=== PATIENT | female | born 1995 | race Caucasian/White ===

== ENCOUNTER → 2020-07-04 15:22 | Outpatient (CLI) | payer OTHER, SELFPAY ==
[2020-07-04 14:44] VITALS: BMI 21.2
== END ==
PROVIDERS: PCP Family Medicine; Referring Provider Internal Medicine Cardiovascular Disease; Visit Provider Internal Medicine Cardiovascular Disease
DX: R00.0 Tachycardia, unspecified (principal)
CPT/HCPCS: 93225; 93226

== ENCOUNTER → 2020-07-30 08:46 | Outpatient (CLI) | payer OTHER, SELFPAY ==
[2020-07-04 14:44] VITALS: BMI 21.2
--- NOTE | 2020-07-30 08:48 | ECHOD_ITS ---
Reason For Study: Arrhythmia Procedure This was a 2D Doppler, Color Flow transthoracic echocardiogram. Exam performed in department. Left Ventricle Normal LV size. Left ventricular systolic function is normal. The estimated ejection fraction is 60 %. Normal diastology for age. No regional wall motion abnormalities noted. Right Ventricle Normal RV size. Normal systolic function. Atria Normal left atrium. Normal right atrium. Mitral Valve Normal mitral valve. Tricuspid Valve Normal tricuspid valve. Aortic Valve Normal aortic valve. Trisinus/trileaflet aortic valve. Pulmonic Valve Normal pulmonic valve. Great Vessels Normal aortic root. The pulmonary artery is normal size. Normal inferior vena cava. Pericardium/Pleural No pericardial effusion. MMode/2D Measurements & Calculations LVIDd: 4.3 cm IVSd: 0.79 cm Ao root diam: 2.4 cm LVIDs: 2.7 cm LVPWd: 0.73 cm RVDd: 2.6 cm FS: 37.3 % LAV(MOD-sp4): 23.2 ml EDV(MOD-sp4): 78.8 ml EDV(MOD-sp2): 88.3 ml ESV(MOD-sp4): 32.6 ml EF(MOD-sp2): 55.4 % EF(MOD-sp4): 58.6 % SV(MOD-sp4): 46.2 ml SV(MOD-sp2): 48.9 ml LA A4 area: 11.6 cm2 LA dimension(2D): 2.7 cm RA A4 area: 8.4 cm2 Doppler Measurements & Calculations MV E max kranthi: 53.8 cm/sec Lat Peak E' Kranthi: 16.6 cm/sec Med Peak E' Kranthi: 15.5 cm/sec E/E' lat: 3.2 E/E' med: 3.5 LV V1 max: 96.1 cm/sec PA V2 max: 124.8 cm/sec LV V1 max P.7 mmHg Interpretation Summary Normal LV size. Left ventricular systolic function is normal. The estimated ejection fraction is 60 %. Normal diastology for age. Structurally normal valves. Ordering Physician: Azeem Olmstead Referring Physician: Devendra Chase MD Performed By: Madonna Baptiste RDCS
== END ==
PROVIDERS: PCP Family Medicine; Referring Provider Internal Medicine Cardiovascular Disease; Visit Provider Internal Medicine Cardiovascular Disease
DX: R00.0 Tachycardia, unspecified (principal)
CPT/HCPCS: 93306

== ENCOUNTER 2020-11-08 19:15 | Outpatient (CLI) | payer OTHER, SELFPAY ==
[2020-07-04 14:44] VITALS: BMI 21.2
[2020-11-08 19:24] VITALS: BP 128/68; PULSE 120; TEMP 37.5; O2SAT 98
[2020-11-08 20:01] VITALS: BMI 24.6
--- NOTE | 2020-12-03 09:12 | OB.TRI.NOTE ---
History of Present Illness Date of Service: 11/08/20 Was patient seen by the physician?: No Reason For Visit: RULE OUT LABOR Allergies No Known Allergies Allergy (Unverified 07/04/20 14:16) - Pertinent Past Medical History Medical History: Past Medical History (Last Reviewed 07/04/20 @ 15:[address] Azeem Olmstead MD) Anemia Migraines Surgical History: Past Surgical History (Last Reviewed 07/04/20 @ 15:[address] Azeem Olmstead MD) History of appendectomy History of wisdom tooth extraction Physical Exam Vitals: Vital Signs Temp Pulse BP Pulse Ox 99.5 F H 120 H 128/68 H 98 11/08/20 19:24 11/08/20 19:24 11/08/20 19:24 11/08/20 19:24 Impression/Plan NST for threatened PTL
== END 2020-11-08 20:10 | disposition home or self-care (01) ==
LOC: WPOUT 19:23 → WP 19:24
PROVIDERS: PCP Family Medicine; Referring Provider Obstetrics & Gynecology; Visit Provider Obstetrics & Gynecology
DX: O60.00 Preterm labor without delivery, unspecified trimester (principal); Z3A.00 Weeks of gestation of pregnancy not specified
CPT/HCPCS: 59025; 59050; 99218; G0378

== ENCOUNTER 2021-01-07 17:15 | Outpatient (CLI) | payer OTHER, SELFPAY ==
[2021-01-07 17:38] VITALS: BMI 26.4
[2021-01-07 17:45] VITALS: BP 132/76; PULSE 114; TEMP 37.5
[2021-01-07 18:31] LABS: ROM Internal Control Test YES-OK TO RESULT pt. (Internal QC); ROM Patient Test Negative (Negative)
--- NOTE | 2021-01-07 19:15 | OB.TRI.NOTE ---
- Problem List (1) 38 weeks gestation of Status: Acute (2) Leakage, amniotic fluid Status: Acute History of Present Illness Date of Service: 01/07/21 Was patient seen by the physician?: No Reason For Visit: R/O ROM Date of Service: 01/07/21 Final RENO: 01/17/21 Gestational age: 38 Weeks and 4 Days History of Present Illness: Patient is a at 38.4 weeks gestation that presents with leaking of fluid. Patient seen in office today and had CE with membrane stripping. She went home and felt like she was leaking fluid. Positive movement. Recent intercourse. Allergies No Known Allergies Allergy (Unverified 01/07/21 17:35) - Pertinent Past Medical History Medical History: Past Medical History (Last Reviewed 07/04/20 @ 15:[address] Azeem Olmstead MD) Anemia Migraines Surgical History: Past Surgical History (Last Reviewed 07/04/20 @ 15:[address] Azeem Olmstead MD) History of appendectomy History of wisdom tooth extraction Laboratory Studies: Laboratory Tests 01/07/21 Range/Units 17:50 Vag Amniotic Fld Detect Negative (Negative) Review of Systems Constitutional: Denies: Chills, Fever, Weight Change HEENT: Denies: Head Aches, Sinus Congestion, Sinus Drainage Cardiovascular: Denies: Chest Pain, Palpitations Respiratory: Denies: Cough, Shortness of breath at rest, Sputum production Gastrointestinal: Denies: Abdominal Pain, Nausea, Vomiting Genitourinary: Denies: Dysuria Neurological: Denies: Numbness, Tingling, Focal weakness Physical Exam Vitals: Vital Signs Temp Pulse BP 99.5 F H 114 H 132/76 H 01/07/21 17:45 01/07/21 17:45 01/07/21 17:45 General: Alert, Oriented x3 HEENT: Atraumatic Cardiovascular: Regular rate Lungs: Normal air movement Abdomen: Soft, Non Tender, Gravid Neurological: Cranial nerves II-XII grossly intact Cervix Dilation (cm): 0.5 NST - FHR Rate Baby A Baseline: 130 Variability:: Moderate Accelerations:: 15 x 15 Decelerations:: None NST Reactive:: Yes FHR Category:: Category I Uterine Activity:: Irritability Impression/Plan at 38.4 weeks gestation with loss of fluid Category 1 tracing NST reactive ROM-plus collected and sent- negative CE 0.5/thick/high Discharge home with labor precautions and follow up in office Dr. Macias notified and is collaborating physician
== END 2021-01-07 18:55 | disposition home or self-care (01) ==
LOC: WPOUT 17:25 → WP 17:25
PROVIDERS: PCP Family Medicine; Referring Provider Advanced Practice Midwife; Visit Provider Advanced Practice Midwife
DX: O42.92 Full-term premature rupture of membranes, unspecified as to length of time between rupture and onset of labor (principal); Z3A.38 38 weeks gestation of pregnancy
CPT/HCPCS: 59025; 59050; 84112; 99218; G0378

== ENCOUNTER 2021-01-11 18:40 | Inpatient (IN) | payer OTHER, SELFPAY ==
[2021-01-11] VITALS (35 sets, daily range): BP systolic 109–156; BP diastolic 55–84; PULSE 71–120; TEMP 37.2–37.4; O2SAT 97–100; BMI 27.3
--- NOTE | 2021-01-11 19:31 | PCM.HP.OB ---
- Problem List (1) COVID-19 affecting in third trimester Status: Acute (2) 39 weeks gestation of Status: Acute History Date of Admission: 01/11/21 Final RENO: 01/17/21 Final RENO Source: [place] <20 weeks Gestational age: 39 Weeks and 1 Days History of this : This is a 25 year-old, @ 39+1 weeks gestation- here for IOL due to presumptive + covid in 3rd trimester- symptoms at 30 weeks with known exposure. Pt is Primip with Rincon score 8. Pt was counseled on continued monitoring with NST weekly until delivery or IOL at 39-40 weeks- pt opting for IOL at 39+ weeks. Medical History: Medical History (Last Reviewed 07/04/20 @ 15:[address] Azeem Olmstead MD) Anemia D64.9 Migraines G43.909 Surgical History: Surgical History (Last Reviewed 07/04/20 @ 15:[address] Azeem Omlstead MD) History of appendectomy Z90.49 History of wisdom tooth extraction K08.409 Allergies No Known Allergies Allergy (Verified 01/11/21 19:21) Home Medications: Home Medications iron, carbonyl 15 mg chewable tablet 15 mg PO DAILY 07/04/20 prenat.vits,cole,[id number] 1 tab PO DAILY 07/04/20 riboflavin (vitamin B2) 25 mg tablet 25 mg PO DAILY 07/04/20 Omeprazole [Prilosec] 20 mg PO DAILY 01/07/21 Smoking Status: Never smoker Alcohol: None Number of Fetus(es): 1 NST - FHR Rate Baby A Baseline: 145 Variability:: Moderate Accelerations:: 15 x 15 Decelerations:: None NST Reactive:: Yes FHR Category:: Category I Uterine Activity:: occasional History Past Pregnancies: Past Pregnancies Delivery Date Name GA/ Weeks Outcome Route Wt Infant Sex Labor Length Anesthesia Delivery Location Provider FOB Labs: syphilis NR, GBS neg, GCT wnl, RUB immune, HEPC neg, HEPB neg, HIV neg, BLD type O+ Expected Delivery Method: Spontaneous Vaginal Review of Systems Eyes: Denies: Blurred vision, Pain HEENT: Denies: Head Aches Gastrointestinal: Denies: Abdominal Pain Physical Exam General: Alert, Oriented x3 Abdomen: Soft, Non Tender, - - gravid Neurological: Cranial nerves II-XII grossly intact [employer]: Normal external genitalia Estimated gestational size: Appropriate for gestational size Presentation: Cephalic Cervix Dilation (cm): 1 Station: -2 Effacement (%): 75 Assessment/Plan All Active Problems (Last Reviewed 07/04/20 @ 15:[address] Azeem Olmstead MD) COVID-19 affecting in third trimester (Acute) 39 weeks gestation of (Acute) Tachycardia (Acute) This is a 25 year-old, , at 39.1 weeks gestational age- IOL for presumptive positive covid in 3rd trimester, Elective term induction. admit to L&D montior fhr/toco anticipate herrera placed intracervically- will start pitocin consent signed may get epidural for pain when requested
[2021-01-11] MEDS: Lactated Ringers 1,000 ML 50 ML IV (19:55)
[2021-01-11] MEDS: Oxytocin 30 units/NS 500 ml 30 UNITS/500 ML IV.SOLN IV (20:03)
[2021-01-11] MEDS: 0.9% Normal Saline Single 100 ML IV.SOLN. INTRA-UTER (20:07)
[2021-01-11 20:11] LABS: Absolute Lymphocyte Count 1.61 X10^3/uL (0.83-4.51); Absolute Neutrophil Count 7.7 X10^3/uL (2.0-7.7); Basophil# 0.02 X10^3/uL; Basophil% 0.2 % (0-1); Eosinophil# 0.06 X10^3/uL; Eosinophils% 0.6 % (0-5); Hematocrit 37.8 % (37-47); Hemoglobin 12.8 g/dL (12.0-15.0); Lymphocyte # 1.61 X10^3/ul (4.0); Lymphocyte % 15.8 % (19-41); Mean Corp Hgb Conc 33.9 g/dL (32-36); Mean Corpuscular Hgb 30.5 pg (27.0-32.0); Mean Corpuscular Volume 90.2 fL (81-99); Mean Platelet Vol. 11.5 fl (6.2-12.0); Monocyte# 0.77 X10^3/uL; Monocyte% 7.6 % (0-10); NRBC Flagged by Analyzer 0 % (0-5); Neutrophil # 7.65 X10^3/uL (2.7-7.7); Neutrophil % 75.3 % (47-70); Platelet Count 162 K/mm3 (150-450); RBC Distribution Width CV 13.5 % (11.6-14.6); RBC Distribution Width SD 44.7 fl (35.1-43.9); Red Blood Count 4.19 M/mm3 (4.2-5.4); White Blood Count 10.2 K/mm3 (4.4-11.0)
[2021-01-11] MEDS: fentaNYL 100 MCG/2 ML Ampul IV (21:05)
[2021-01-11] MEDS: 0.9% Saline Lock 10 ML Syringe IV (21:08)
[2021-01-11] MEDS: Ondansetron 4 MG/2 ML Vial IV (21:10)
[2021-01-11] MEDS: Lactated Ringers 500 ML 999 ML IV (22:06)
--- NOTE | 2021-01-11 22:52 | NURSING ---
Dr. Singh expressed concern that there is no definitive Covid positive test and that it is noted in patients history that patient was presumed positive; this RN called Dr. Dougherty and received verbal order for covid test at this time; Dr. Singh and primary nurse aware of order.
[2021-01-11] MEDS: fentaNYL-bupivacaine (epidural) 100 ML BAG EPIDURAL (22:59)
[2021-01-12] VITALS (27 sets, daily range): BP systolic 101–147; BP diastolic 49–78; PULSE 76–136; RESP 16; TEMP 36.1–37.6; O2SAT 98–100
[2021-01-12] MEDS: Ondansetron 4 MG/2 ML Vial IV ×2 (01:12→07:49)
[2021-01-12] MEDS: 0.9% Saline Lock 10 ML Syringe IV (01:13)
[2021-01-12 02:01] LABS: ROM Internal Control Test YES-OK TO RESULT pt. (Internal QC)
[2021-01-12 02:02] LABS: ROM Patient Test POSITIVE (Negative)
[2021-01-12] MEDS: fentaNYL-bupivacaine (epidural) 100 ML BAG EPIDURAL ×4 (03:07→12:53)
--- NOTE | 2021-01-12 07:50 | PCM.PN.BLA ---
Progress Note pt seen at bedside, doing well- resting comfortably with epidural. VE: AROM of forebag done- /-2. Clear fluid. IUPC placed. will continue pitocin at this time. Anticipate . FHR reviewed Category1 reactive. STROKE Vital Signs/Narrative: Vital Signs Temp Pulse BP Pulse Ox 01/12/21 07:15 91 103/57 L 01/12/21 06:30 97.9 F 76 112/53 L 01/12/21 06:29 98 01/12/21 05:16 91 101/51 L 99 01/12/21 05:15 97.3 F L 01/12/21 04:08 81 99 01/12/21 04:07 97.3 F L 78 103/50 L
[2021-01-12] MEDS: Lactated Ringers 1,000 ML 200 ML IV (11:44)
[2021-01-12] MEDS: Acetaminophen 500 MG Tablet PO (13:03)
--- NOTE | 2021-01-12 15:26 | PCM.PN.BLA ---
Progress Note pt complete and pushing. Continue pitocin. Anticipate STROKE Vital Signs/Narrative: Vital Signs Pulse BP 01/12/21 15:23 86 124/59 H
[2021-01-12] MEDS: Oxytocin 30 units/NS 500 ml 30 UNITS/500 ML IV.SOLN 334 UNITS IV (16:25)
--- NOTE | 2021-01-12 16:51 | PCM.OPRPT ---
Problem List (1) COVID-19 affecting in third trimester Status: Acute (2) 39 weeks gestation of Status: Acute Vaginal Delivery Maternal Presentation: Elective Induction, - - covid in third trimester Method of Induction: Pitocin, Caal Bulb Amniotic Membrane Rupture Type: Spontaneous Rupture of Membrane time: 0120 Amniotic Fluid Description: Clear Final RENO: 01/17/21 Final RENO Source: [place] <20 weeks Gestational age: 39 Weeks and 2 Days Date of Procedure: 01/12/21 Pre-Operative Diagnosis: term gestation, presumptive + covid in 3rd trimester, elective IOL Post-Operative Diagnosis: same, live male infant Surgery/ Procedure Performed: Vacuum Assisted Vaginal Delivery Type of Anesthesia: Epidural Description of Procedure: Has been pushing for approximately 3 hours head at the +3 station. Vacuum extraction was discussed with the patient for maternal exhaustion. We discussed the risks and the benefits and alternatives of using the vacuum including but not limited to vaginal lacerations, scalp lacerations and subgaleal bleeds. Patient and agree for vacuum use. At this time extra help was called into the room the Kiwi vacuum was applied to the flexion point and set at 550 mmHg. Total of 6 pulls with 1 pop-off and good maternal pushing efforts -patient counseled that in RML episiotomy was made to help expedite delivery the infant's head then was delivered the vacuum was then removed and the rest the infant's body was delivered. Infant was placed on the mother's chest was vigorous. Delayed cord clamping was performed. was delivered at 1622 on 01/12/2021. At this time placenta was then delivered intact without difficulty. The RML and second-degree were repaired using 2-0 Vicryl and 3-0 repeat. Excellent hemostasis was appreciated. lap and needle count were correct. Presentation: Vertex Placental Delivery Description: Spontaneous Placenta Disposition: [facility] Cord Vessel Description: 3 Vessels Cord Entanglement: None Drain: Caal to straight drain Estimated Blood Loss: 400 A gender: Male (1 minute): 8 (5 minute): 9 Episiotomy Description: Right Mediolateral - repaired with 2-0 vicryl and 3-0 rapide, 2nd degree Laceration: None Medications given after delivery: IV Pitocin Complications: None
[2021-01-12] MEDS: Ibuprofen 600 MG Tablet PO (17:34)
[2021-01-12] MEDS: Acetaminophen 500 MG Tablet 1000 MG PO (18:32)
[2021-01-13 00:20] VITALS: BP 120/63; PULSE 75; RESP 16; TEMP 36.4
[2021-01-13] MEDS: Ibuprofen 600 MG Tablet PO ×4 (00:20→19:37)
[2021-01-13] MEDS: Dibucaine 30 GM Tube 1 APPLIC TOPICAL (00:21)
[2021-01-13] MEDS: Senna/Docusate Sodium 1 Tablet PO (01:28)
[2021-01-13 04:00] VITALS: BP 100/55; PULSE 70; RESP 16; TEMP 36.5
[2021-01-13] MEDS: Acetaminophen 500 MG Tablet 1000 MG PO ×2 (04:08→12:32)
[2021-01-13 04:12] LABS: Hematocrit 32.8 % (37-47); Hemoglobin 10.9 g/dL (12.0-15.0); Mean Corp Hgb Conc 33.2 g/dL (32-36); Mean Corpuscular Hgb 30.6 pg (27.0-32.0); Mean Corpuscular Volume 92.1 fL (81-99); Mean Platelet Vol. 11.5 fl (6.2-12.0); Platelet Count 127 K/mm3 (150-450); RBC Distribution Width CV 13.7 % (11.6-14.6); RBC Distribution Width SD 46.8 fl (35.1-43.9); Red Blood Count 3.56 M/mm3 (4.2-5.4); White Blood Count 13.6 K/mm3 (4.4-11.0)
--- NOTE | 2021-01-13 08:05 | PCM.PN.OB ---
Patient Problems: Active and Suspected Problems (Last Reviewed 07/04/20 @ 15:[address] Azeem Olmstead MD) COVID-19 affecting in third trimester (Acute) 39 weeks gestation of (Acute) Subjective: Seen at bedside, doing well. Patient reports some stinging sensation in the vaginal area but otherwise doing well. She reports lochia is mild. Voiding without difficulty. Passing flatus. Tolerating regular diet. Having some issues with breast-feeding will work with today. - Physical Exam Vitals/I&O's: Vital Signs Temp Pulse Resp BP Pulse Ox 97.7 F L 70 16 100/55 L 98 01/13/21 04:00 01/13/21 04:00 01/13/21 04:00 01/13/21 04:00 01/12/21 19:16 Oxygen Delivery Method Room Air Weight: 85.1 kg Body Mass Index (BMI) 27.3 Intake and Output for Last 24 Hours 01/11/21 01/12/21 01/13/21 23:59 23:59 23:59 Intake Total 622.5 / 622.5 2716.96 / 2716.96 Output Total 500 / 500 2250 / 2250 600 / 600 Balance 122.5 / 122.5 466.96 / 466.96 -600 / -600 General: Alert, Oriented x3 Abdomen: Soft, Non Tender, Non-Distended Extremities: No Calf Tenderness Neurological: Cranial nerves II-XII grossly intact Laboratory Results 01/13/21 04:00: WBC 13.6 H, RBC 3.56 L, Hgb 10.9 L, Hct 32.8 L, MCV 92.1, MCH 30.6, MCHC 33.2, RDW Std Deviation 46.8 H, RDW Coeff of Marilyn 13.7, Plt Count 127 L, MPV 11.5 Current Medications Acetaminophen (Acetaminophen 500 Mg Tablet) 1,000 mg PO Q8H PRN PRN PRN Reason: Pain Score 1-3 Last Admin: 01/13/21 04:08 Dose: 1,000 mg Documented by: Bisacodyl (Bisacodyl 10 Mg Suppository) 10 mg RC UD PRN PRN Reason: If no BM Dibucaine (Dibucaine 30 Gm Tube) 1 applic TOPICAL TID PRN PRN; Protocol PRN Reason: Discomfort Last Admin: 01/13/21 00:21 Dose: 1 applicatio Documented by: Hydrocortisone (Hydrocortisone 2.5% Crm) 1 applic TOPICAL TID PRN PRN; Protocol PRN Reason: Discomfort Ibuprofen (Ibuprofen 600 Mg Tablet) 600 mg PO Q6H PRN PRN PRN Reason: Pain Score 1-3 Last Admin: 01/13/21 06:39 Dose: 600 mg Documented by: Methylergonovine Maleate (Methylergonovine 0.2 Mg/Ml Ampul) 0.2 mg IM X1 PRN PRN Reason: Excess bleeding/uterine atony Ondansetron HCl (Ondansetron 4 Mg/2 Ml Vial) 4 mg IV Q4H PRN PRN PRN Reason: Nausea Oxycodone HCl (Oxycodone 5 Mg Tablet) 5 - 10 mg PO Q4H PRN PRN PRN Reason: Pain Score 4-10 Pantoprazole Sodium (Pantoprazole Sodium 20 Mg Tablet) 20 mg PO DAILY GISELA Multivit/Folic Acid/Iron ( Vits Tablet) 1 tablet PO DAILY@1200 GISELA Senna/Docusate Sodium (Senna/Docusate Sodium 1 Tablet) 1 - 2 tablet PO DAILY PRN PRN PRN Reason: Constipation Last Admin: 01/13/21 01:28 Dose: 2 tablet Documented by: Simethicone (Simethicone 80 Mg Tablet) 80 mg PO PCHS PRN PRN Reason: Indigestion/Stomach pain Sodium Chloride (0.9% Saline Lock 10 Ml Syringe) 5 - 15 ml IV UD PRN PRN Reason: SALINE FLUSH Medical Necessity - Tobacco Use Smoking Status: Never smoker Assessment/Plan All Active Problems (Last Reviewed 07/04/20 @ 15:[address] Azeem Olmstead MD) COVID-19 affecting in third trimester (Acute) 39 weeks gestation of (Acute) Tachycardia (Acute) PPD#1, doing well routine care pain mgmt ambulation
--- NOTE | 2021-01-13 08:07 | DCINST_ITS ---
Discharge Diet: No Restrictions Discharge Activity: Return to Normal Activity, May not drive while taking narcotic pain medications., May Shower May resume sexual activity in: 4-6 weeks Additional Activity Instructions:: Nothing in the vagina for 4-6 weeks. You may return to work/school in 6 weeks. Call your doctor if your incision/area has: Continuous Slow Oozing, Sudden Increased Bleeding, Increased Pain/ Swelling, Increased Redness, Foul Smelling Discharge Additional Instructions: If you experience any of the following, contact your healthcare provider. * Bleeding that soaks a pad every hour for 2 hours * Fever 100.4 or higher * Unrelieved incision or abdominal pain * Swelling, redness, discharge or bleeding from your incision or episiotomy site * Your incision begins to separate * Problems urinating (including inability to urinate or burning while urinating). * Visual changes * Severe headache * Flu-like symptoms * Pain or redness in one of both of your breasts * Pain, warmth, tenderness or swelling in your legs, especially the calf area * Frequent nausea and vomiting * Symptoms of depression or anxiety If you experience any of the following, call 911 or go to the nearest Emergency Room. * Chest pain * Problems breathing * Seizure activity * Partial or complete paralysis of a body part, slurred speech, weakness or drooping of the face, or a sudden inability to walk or hold your balance Allergies/Adverse Reactions: Allergies No Known Allergies Allergy (Verified 01/11/21 19:21) Medications to take at Discharge iron, carbonyl 15 mg chewable tablet 15 mg PO DAILY 07/04/20 prenat.vits,cole,pqk-fyck-rrjqy 1 tab PO DAILY 07/04/20 riboflavin (vitamin B2) 25 mg tablet 25 mg PO DAILY 07/04/20 Dibucaine 1 applic TOPICAL TID PRN PRN #1 tube 01/13/21 Ibuprofen [Motrin] 600 mg PO Q6H PRN PRN #30 tab 01/13/21 Senna/Docusate Sodium [Senokot-S] 1 - 2 tab PO DAILY PRN PRN #30 tab 01/13/21 The following prescriptions were given: Dibucaine 1 applic TOPICAL TID PRN PRN #1 tube PRN Reason: Discomfort Transmission Status: Pending to [facility] [id number] Ibuprofen [Motrin] 600 mg PO Q6H PRN PRN #30 tab PRN Reason: Pain Score 1-3 Transmission Status: Pending to [facility] [id number] Senna/Docusate Sodium [Senokot-S] 1 - 2 tab PO DAILY PRN PRN #30 tab PRN Reason: Constipation Transmission Status: Pending to [facility] [id number] Please Follow Up With: Tiffany Matos MD When: Call to make an appointment with your doctor in 1-2 weeks then at 6 weeks. Primary Care Physician: Devendra Chase MD [Primary Care Provider] - Test Results: Test results from this visit will be discussed in further detail at your follow- up appointment, if applicable.
[2021-01-13 09:35] VITALS: BP 126/57; PULSE 94; RESP 18; TEMP 36.8
[2021-01-13] MEDS: Pantoprazole Sodium 20 MG Tablet PO (09:56)
[2021-01-13] MEDS: Prenatal Vits Tablet 1 TABLET PO (12:31)
[2021-01-13 12:41] VITALS: BP 120/57; PULSE 83; RESP 18; TEMP 36.8
[2021-01-13 17:30] VITALS: BP 108/63; PULSE 84; RESP 16; TEMP 36.7
== END 2021-01-13 19:45 | disposition home or self-care (01) | DRG 807 ==
PROVIDERS: Admitting Provider Obstetrics & Gynecology; PCP Family Medicine; Visit Provider Obstetrics & Gynecology
DX: O75.81 Maternal exhaustion complicating labor and delivery (principal); O70.1 Second degree perineal laceration during delivery; Z37.0 Single live birth; O75.9 Complication of labor and delivery, unspecified; Z90.49 Acquired absence of other specified parts of digestive tract; Z3A.39 39 weeks gestation of pregnancy; Z86.16 Personal history of COVID-19
CPT/HCPCS: 59025; 59050; 84112; 85025; 85027; 86850; 86900; 86901; 87635; 99218; J7120; A4216; G0378; J2405; U0002

== ENCOUNTER 2023-12-27 22:20 | Outpatient (CLI) | payer BC, SELFPAY ==
--- OUTSIDE RECORDS SUMMARY | 2023-12-27 22:28 | XMS RPT_ITS | CCD ---
Author Name Unknown Address [address] [place] [address] Organization [facility] Care Team Providers Care Junior Qa Analyst Name Role Phone Arnoldo Mancia Unavailable Unavailabl e Arnoldo Mancia Unavailable Unavailabl e No Doctor Assigned, Nodr Unavailable Unavail able Devendra Chase Primary Care Provider DEVENDRA CHASE Primary Care Unavailable MELLISA FRITZ Attending Unavailable DEVENDRA CHASE Admitting Unavailable DEVENDRA CHASE Referring Unavailable DEVENDRA CHASE Primary Care Unavailable Devendra Chase MD Primary Care Provider LYDIA NEUMANN Attending Unavailable DEVENDRA CHASE Referring Unavailable DEVENDRA CHASE Primary Care Unavailable Devendra Chase MD Primary Care Provider Devendra Chase MD Primary Care Provider Devendra Chase MD Primary Care Provider ANTON BROWNING Attending Unavailable DEVENDRA CHASE Primary Care Unavailable ANTON BROWNING Attending Unavailable DEVEDNRA CHASE Primary Care Unavailable ARCELIA MACIAS Attending Unavailable DEVENDRA CHASE Primary Care Unavailable DEVENDRA CHASE Primary Care Unavailable SHEILA ALEXANDER Referring Unavailable TOM, ARCELIA Referring Unavailable DEVENDRA CHASE Primary Care Unavailable SKINNERIDRE Referring Unavail able DEVENDRA CHASE Primary Care Unavailable NEJUANAT LAURA FRANCESCO Referring Unavail able DEVENDRA CHASE Primary Care Unavailable TOM, ARCELIA Attending Unavailable DEVENDRA CHASE Primary Care Unavailable TOM, ARCELIA Attending Unavailable DEVENDRA CHASE Primary Care Unavailable WISWELL, ARCELIA Referring Unavailable NEJUANAT LAURA, FRANCESCO Referring Unavail able DEVENDRA CHASE Primary Care Unavailable MEKA BROWN Attending Unavailable DEVENDRA CHASE Primary Care Unavailable [facility] Unavailable ARCELIA MACIAS Attending Unavailable OSBALDO BOWENRE Attending Unavail able [facility] Unavailable NEYHLEENAT LAURA, FRANCESCO Referring Unavail able [facility] Unavailable NEYHELENAT SANCHEZ, FRANCESCO Referring Unavail able [facility] Unavailable [facility] Unavailable WISWELL, ARCELIA Referring Unavailable [facility] Unavailable MEKA BROWN Attending Unavailable [facility] Unavailable SHEILA ALEXANDER Attending Unavailable [facility] Unavailable NEYHART LAURA, FRANCESCO Attending Unavail able [facility] Unavailable WISWELL, ARCELIA Referring Unavailable WISWELL, ARCELIA Referring Unavailable [facility] Unavailable WISWELL, ARCELIA Referring Unavailable ANTON BROWNING Attending Unavailable [facility] Unavailable [facility] Unavailable MEKA BROWN Attending Unavailable NEYHELENAT LAURA, FRANCESCO Referring Unavail able [facility] Unavailable NEYHELENAT LAURA, FRANCESCO Referring Unavail able [facility] Unavailable [facility] Unavailable NEMICHELLE SANCHEZ, FRANCESCO Attending Unavail able Medications Completed/Discontinued Medications Medication Drug Class(es) Dates Sig (Normalized) Sig (Original) doxycycline hyclate 100 mg oral tablet (1 source) Tetracycline-clas s Drug Start: 11-26-2022 End: 11-26-2022 take 2 tablets by mouth once doxycycline (VIBRA-TABS) 100 mg tablet Take 2 tablets by mouth one time only for 1 dose. 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; Translations: [ care for patient with recurrent loss, unspecified trimester] Onset: 05-14-2023 Episodic Other gastrointestinal disorders (1 source) Constipation; Translations: [Constipation] Onset: 03-24-2020 03-24-2020 Episodic Other lower respiratory disease (1 source) Cough; Translations: [Cough] Episodic Other and delivery including normal (19 sources) with uncertain dates; Translations: [Encounter for supervision of normal , unspecified, first trimester] Onset: 06-12-2020 05-15-2023 Episodic Residual codes; unclassified (2 sources) Gestation period, 13 weeks; Translations: [13 weeks gestation of ] 06-25-2023 Episodic Residual codes; unclassified (1 source) Gestation period, 20 weeks; Translations: [20 weeks gestation of ] 08-17-2023 Episodic Residual codes; unclassified (1 source) Gestation period, 25 weeks; Translations: [25 weeks gestation of ] 09-17-2023 Episodic Residual codes; unclassified (1 source) Gestation period, 28 weeks; Translations: [28 weeks gestation of ] 10-12-2023 Episodic Residual codes; unclassified (1 source) Gestation period, 38 weeks; Translations: [38 weeks gestation of ] 12-17-2023 Episodic Residual codes; unclassified (1 source) Gestation period, 39 weeks; Translations: [39 weeks gestation of ] 12-25-2023 Episodic Residual codes; unclassified (1 source) 25 weeks gestation of ; Translations: [25 weeks gestation of ] Onset: 10-12-2023 Episodic Spontaneous (1 source) Incomplete miscarriage with complication; Translations: [Incomplete spontaneous without complication] Episodic Past or Other Problems Problem Classification Problem Date Documented Date Episodic/Chronic Blindness and vision defects (20 sources) Myopia; Translations: [Myopia, unspecified eye] Onset: 02-19-2015 02-19-2015 Episodic Genitourinary symptoms and ill-defined conditions (2 sources) Dysuria; Translations: [Dysuria] Onset: 06-04-2023 06-03-2023 Episodic Hemorrhage during ; abruptio placenta; placenta previa (8 sources) Threatened miscarriage; Translations: [Threatened ] Onset: 05-15-2023 Episodic Other complications of (7 sources) Recurrent miscarriage; Translations: [ care for patient with recurrent loss, unspecified trimester] Onset: 05-14-2023 05-14-2023 Episodic Other female genital disorders (1 source) Recurrent loss; Translations: [Recurrent loss without current ] Onset: 03-28-2023 Episodic Other screening for suspected conditions (not mental disorders or infectious disease) (4 sources) Patient encounter status; Translations: [Encounter for screening, unspecified] Onset: 03-17-2023 06-25-2023 Episodic Residual codes; unclassified (6 sources) H/O: previous delivery by vacuum extraction; Translations: [Personal history of other complications of , childbirth and the puerperium] Onset: 09-17-2023 09-17-2023 Episodic Residual codes; unclassified (6 sources) History of episiotomy; Translations: [Other specified postprocedural states] Onset: 09-17-2023 09-17-2023 Episodic Residual codes; unclassified (2 sources) Personal history of other complications of , childbirth and the puerperium; Translations: [History of vacuum extraction assisted delivery] Onset: 03-17-2023 Episodic Residual codes; unclassified (1 source) Other specified postprocedural states; Translations: [History of episiotomy] Onset: 09-17-2023 Episodic Residual codes; unclassified (1 source) 9 weeks gestation of ; Translations: [9 weeks gestation of ] Onset: 08-17-2023 Episodic Results Test Name Value Interpretation Reference Range Facil ity Vital Signs Date Time Vital Sign Value Performing Clinician Patrick alexandre 12-25-2023 10:27-0500 Body weight 85.55 kg Gabby Dill APRN.CNM Work Phone: [facility] 12-25-2023 10:27-0500 Diastolic blood pressure 64 mm[Hg] Gabby Dill APRN.CNM Work Phone: [facility] 12-25-2023 10:27-0500 Systolic blood pressure 110 mm[Hg] Gabby Dill APRN.CNM Work Phone: [facility] 12-17-2023 09:28-0500 Body weight 84.37 kg Arcelia Macias MD Work Phone: [facility] 12-17-2023 09:28-0500 Diastolic blood pressure 64 mm[Hg] Arcelia Macias MD Work Phone: [facility] 12-17-2023 09:28-0500 Systolic blood pressure 118 mm[Hg] Arcelia Macias MD Work Phone: [facility] 10-12-2023 09:41-0500 Body weight 78.02 kg Francesco Sanchez MD Work Phone: [facility] 10-12-2023 09:41-0500 Diastolic blood pressure 60 mm[Hg] Francesco Sanchez MD Work Phone: [facility] 10-12-2023 09:41-0500 Systolic blood pressure 112 mm[Hg] Francesco Sanchez MD Work Phone: [facility] 09-17-2023 15:21-0500 Body weight 74.84 kg Sheilachapo Hernandezankit BECK TENDER.DIRECTOR OF PROPERTY MANAGEMENT Work Phone: [facility] 09-17-2023 15:21-0500 Diastolic blood pressure 68 mm[Hg] Sheila Haury BECK TENDER.DIRECTOR OF PROPERTY MANAGEMENT Work Phone: [facility] 09-17-2023 15:21-0500 Systolic blood pressure 118 mm[Hg] Sheila Haury BECK TENDER.DIRECTOR OF PROPERTY MANAGEMENT Work Phone: [facility] 06-25-2023 15:33-0400 Body weight 66.68 kg Anton Browning MD Work Phone: [facility] 06-25-2023 15:33-0400 Diastolic blood pressure 60 mm[Hg] Anton Browning MD Work Phone: [facility] 06-25-2023 15:33-0400 Systolic blood pressure 104 mm[Hg] Anton Browning MD Work Phone: [facility] 05-15-2023 15:21-0400 Body height 175.3 cm Ob Ultrasound Work Phone: [facility] 05-15-2023 15:21-0400 Body weight 64.86 kg Ob Ultrasound Work Phone: [facility] 11-26-2022 12:00-0500 Diastolic blood pressure 72 mm[Hg] Francesco Sanchez MD Work Phone: [facility] 11-26-2022 12:00-0500 Respiratory rate 113 /min Francesco Sanchez MD Work Phone: [facility] 11-26-2022 12:00-0500 Systolic blood pressure 110 mm[Hg] Francesco Sanchez MD Work Phone: [facility] 11-26-2022 11:13-0500 Body weight 65.32 kg Francesco Sanchez MD Work Phone: [facility] 11-19-2022 09:06-0500 Diastolic blood pressure 72 mm[Hg] Francesco Sanchez MD Work Phone: [facility] 11-19-2022 09:06-0500 Systolic blood pressure 116 mm[Hg] Francesco Sanchez MD Work Phone: [facility] 05-23-2022 15:10-0400 Body height 177.8 cm Lydia LEYVA Work Phone: [facility] Encounters Encounter Date Encounter Type Care Provider Facility Start: 12-25-2023 End: 12-25-2023 ambulatory FRANCESCO SANCHEZ Facility:[facility] Start: 12-25-2023 End: 12-25-2023 Patient encounter procedure Gabby Dill APRN.CNM Work Phone: OB/Gynecology Procedures Date Procedure Procedure Detail Performing Clinician Start: 12-25-2023 URINE OB DIP B/O Francesco Sanchez MD Work Phone: Start: 12-17-2023 URINE OB DIP B/O Arcelia ovalles MD Work Phone: Start: 10-12-2023 URINE OB DIP B/O Francesco Sanchez MD Work Phone: Start: 08-17-2023 Us preg uterus after 1st trimest 11/09 gestation Arcelia Macias MD Work Phone: Start: 06-25-2023 URINE OB DIP B/O Anton Browning MD Work Phone: Start: 06-25-2023 Us nuchal translucency 1st gestation Arcelia Macias MD Work Phone: Start: 06-04-2023 Antibody screen ANTON BROWNING Plan of Treatment Date Care Activity Detail Author Start: 2038 PAP TESTING PAP TESTING [facility] Start: 10-26-2033 Urine microalbumin profile DTaP,Tdap,Td Vaccine (9 - Td or Tdap) [facility] Start: 10-23-2030 Tetanus vaccination TETANUS [facility] Start: 10-23-2030 Urine microalbumin profile [facility] Start: 02-19-2024 PAP TESTING PAP TESTING [facility] Start: 02-19-2024 Screening for malignant neoplasm of cervix Pap Testing [facility] Start: 11-09-2023 Depression Assessment Depression Assessment [facility] Start: 11-05-2023 RSV Vaccine (1 - Risk 1-dose series) RSV Vaccine (1 - Risk 1-dose series) [facility] Start: 09-17-2023 End: 12-17-2023 CBC W Auto Differential panel - Blood CBC + DIFF Lab Routine Encounter for supervision of other normal in second trimester 25 weeks gestation of Expected: 09/17/2023, Expires: 12/17/2023 [facility] Work Phone: Immunizations Immunization Date Immunization Notes Care Provider Theodore jaeger 10-26-2023 tetanus toxoid, redu ronal diphtheria toxoid, and acellular pertussis vaccine, adsorbed Arcelia Macias MD Work Phone: [facility] 10-23-2020 tetanus toxoid, redu ronal diphtheria toxoid, and acellular pertussis vaccine, adsorbed Francesco Sanchez MD Work Phone: [facility] 08-07-2020 influenza, injectabl e, quadrivalent, contains preservative Francesco Sanchez MD Work Phone: [facility] 08-07-2020 influenza virus vaccine, unspecified formulation [place] [facility] Payers Date Payer Category Payer Unknown [id number] 2022 Private Health Insurance [id number] 2022 Private Health Insurance [id number] 2022 Unknown [id number] 2019 Unknown MMO MED [employer] S UPERMED PPO xxxxxxxxxxxx 2019-Present xxxxxxxxxxxx [id number] 2019 Unknown [id number] 2018 Unknown 1996 Unknown [id number] 1996 Unknown [id number] 1996 Unknown [id number] Social History Date Type Detail Facility Start: 03-24-2020 End: 11-19-2022 Tobacco smoking status NHIS Never smoker [facility] Work Phone: Start: 03-24-2020 Alcohol intake Current drinker of alcohol (finding) [facility] Start: 03-24-2020 History SDOH Alcohol Frequency 3 [facility] Start: 03-24-2020 End: 05-31-2020 History SDOH Alcohol Std Drinks 1 [facility] Start: 03-24-2020 Alcohol Comment socially [facility] Start: 1995 Sex Assigned At Not on file [facility] Exposure to SARS-CoV -2 (event) Yes [facility] Tobacco smoking stat us MSIS Tobacco smoking consumption unknown [facility] Start: 02-19-2015 End: 11-19-2022 Tobacco use and exposure Smokeless tobacco non-user [facility] Work Phone: Start: 02-13-2021 End: 12-25-2023 Alcohol intake Current non-drinker of alcohol (finding) [facility] Start: 05-31-2020 History SDOH Financial 5 [facility] Start: 05-31-2020 History SDOH Transport Med 2 [facility] Start: 05-31-2020 Education 16 [facility] Start: 04-16-2020 Gender identity Identifies as female gender (finding) [facility] Start: 04-16-2020 Sexual orientation Heterosexual (finding) [facility] Start: 04-09-2023 [facility] Start: 05-31-2020 End: 05-14-2023 History of Social function [facility] Work Phone: Start: 05-31-2020 End: 05-14-2023 Tobacco use panel [facility] Work Phone: National Score (1-10 0), lower number is lower risk 72 [facility] Work Phone: (I/We) worried wheth er (my/our) food would run out before (I/we) got money to buy more. Never true [facility] Work Phone: Goals Date Patient Goal Desired Activity /State Personal health goal Clinical Notes 12-27-2020 to 12-25-2023 Quick Notes - Gabby Dill APRN.CNM - 12/25/2023 11:06 AM ESTPatient InstructionsPrenatal Quick Notes - Arcelia Macias MD - 12/17/2023 9:44 AM ESTPatient InstructionsPatient Instructions Note Date & Type Note Facility 12-25-2023 Miscellaneous Notes Formattin g of this note might be different from the original. CHERISE-S: Sarah Campuzano is a 28 year old female who presents at 39w1d with RENO:12/31/2023, by Last Menstrual Period for a routine visit. Denies headache, visual changes, chest pain, shortness of breath, vaginal bleeding, leakage of fluid, or dysuria. Feeling well, no complaints. O: See flow sheet Gen: No apparent distress Abd: Gravid, nontender Membranes swept upon request, consented and tolerated well. ASSESSMENT/PLAN: 1. Encounter for supervision of other normal in third trimester 2. 39 weeks gestation of P: 1) PTL precautions reviewed and when to call 2) RTO in one week 3) Discussed induction plan, would like to wait till around 41 weeks for induction, will schedule next visit as over a week out. Gabby Dill APRN.CNM documented in this encounter [facility] 12-25-2023 Instructions Yolis Vu LPN - 12/25/2023 10:28 AM EST SEQUENTIAL SCREENINGS The [facility] offers sequential screenings for women who are interested in screenings for chromosomal abnormalities and certain defects during a . The sequential screen combines ultrasound and blood tests to determine the risk of chromosomal abnormalities, including Down's Syndrome (Trisomy 21) and Trisomy 18, as well as open neural tube defects including spina bifida. Ultrasound examination is performed between 11 weeks and 13 weeks gestational age. Blood tests are drawn after the ultrasound and again later in the between 15 and 21 weeks gestational age. Please let your physician know if you are interested in this testing. It will require an appointment with our garage door service technician. This is not an ultrasound performed by a physician in our office during a routine visit. SIGNS AND SYMPTOMS OF LABOR 1. Contractions every 10 minutes or more often 2. Clear, pink, or brownish fluid (water) leaking from vagina 3. Feeling that baby is pushing down, pressure 4. Low, dull backache 5. Cramps that feel like a period 6. Cramps with or without diarrhea If you notice any of the above symptoms, contact our office at [phone] and ask to speak with a nurse. After hours, you can call doctors registry at [phone] OR call [facility] at [phone] and ask to have the doctor front office associate paged. If you consider this an emergency, dial 9-1-1 or go to your nearest emergency department. NEED HELP? Are you dealing with a violent or abusive relationship? Are you a victim of rape or sexual assult? Call [facility] ([place]) 24 hour Crisis Hotline: 702.991.1534 or 254-583-5275. MANUAL Your Guide to a Healthy manual is now on-line. Visit [email or web address] to download your free copy documented in this encounter [facility] 12-17-2023 Miscellaneous Notes Formattin g of this note might be different from the original. SW- Pt doing well. No ctx, vb, lof. Good FM PE: Gen- NAD, well appearing Abd- Soft, gravid, NT, S=D Cvx 50/-3, posterior See flowsheet A/p 38 wk gestation - Labor precautions reviewed - Desires ~40 week induction Arcelia Macias DO documented in this encounter [facility] 12-17-2023 Instructions Vane Weinstein Ma - 12/17/2023 9:27 AM EST SEQUENTIAL SCREENINGS The [facility] offers sequential screenings for women who are interested in screenings for chromosomal abnormalities and certain defects during a . The sequential screen combines ultrasound and blood tests to determine the risk of chromosomal abnormalities, including Down's Syndrome (Trisomy 21) and Trisomy 18, as well as open neural tube defects including spina bifida. Ultrasound examination is performed between 11 weeks and 13 weeks gestational age. Blood tests are drawn after the ultrasound and again later in the between 15 and 21 weeks gestational age. Please let your physician know if you are interested in this testing. It will require an appointment with our garage door service technician. This is not an ultrasound performed by a physician in our office during a routine visit. SIGNS AND SYMPTOMS OF LABOR 1. Contractions every 10 minutes or more often 2. Clear, pink, or brownish fluid (water) leaking from vagina 3. Feeling that baby is pushing down, pressure 4. Low, dull backache 5. Cramps that feel like a period 6. Cramps with or without diarrhea If you notice any of the above symptoms, contact our office at [phone] and ask to speak with a nurse. After hours, you can call doctors registry at [phone] OR call [facility] at [phone] and ask to have the doctor front office associate paged. If you consider this an emergency, dial 9-1-1 or go to your nearest emergency department. NEED HELP? Are you dealing with a violent or abusive relationship? Are you a victim of rape or sexual assult? Call [facility] ([place]) 24 hour Crisis Hotline: 806.338.2522 or 795-421-0607. MANUAL Your Guide to a Healthy manual is now on-line. Visit [email or web address] to download your free copy documented in this encounter [facility] 12-11-2023 Note HNO ID: [id number] Author: MEKA BROWN MD Service: ? Author Type: Physician Type: Progress Notes Filed: 12/11/2023 15:02 Note Text: NST SUMMARY PROVIDER ASSESSMENT AND INTERPRETATION Sarah Campuzano is a 28 year old female, , who is at 37w1d with an RENO of 12/31/2023, by Last Menstrual Period dating method. Indications for NST: Decreased Movement Baseline: 125 Variability: Moderate Accelerations: Present 15 X 15 Decelerations: None Contractions: TOCO: None Interpretation: Category I and Reactive SIGNATURE: Meka Brown MD [facility] 10-26-2023 Note HNO ID: [id number] Author: Joe Knox Cma Service: ? Author Type: ? Type: Progress Notes Filed: 10/26/2023 10:28 AM Note Text: Patient identified by name and date of . Sarah Campuzano presents today for a vaccination of Tdap. Patient denies an allergy to latex: yes Patient denies a severe (life-threatening) allergy to a previous dose of Tdap, DTP, DTaP, DT or Td vaccine. Yes Patient denies history of epilepsy or neurological problems: Yes Patient is afebrile and denies being moderately or severely ill: Yes Patient denies history of Guillain-Cofield Syndrome (a severe paralytic illness): Yes Tdap Adacel injection was given without incident. See immunizations for details of immunizations administered today. VIS sheet provided: Yes Provider Francesco Sanchez MD was present in office at time of injection. Joe Knox Cma [facility] 10-12-2023 Miscellaneous Notes Formattin g of this note might be different from the original. DM- Pt doing well today. Denies Vaginal Bleeding, Leaking fluid, or contractions. Pt reports good movement. Considering Tdap. Heartburn- pepcid not helping as much- will try omperazole. 28 week labs today. Possible tdap next visit. LARC declined- planning vasectomy. documented in this encounter [facility] 10-12-2023 Instructions Vane Weinstein Ma 10/12/2023 9:40 AM EST SEQUENTIAL SCREENINGS The [facility] offers sequential screenings for women who are interested in screenings for chromosomal abnormalities and certain defects during a . The sequential screen combines ultrasound and blood tests to determine the risk of chromosomal abnormalities, including Down's Syndrome (Trisomy 21) and Trisomy 18, as well as open neural tube defects including spina bifida. Ultrasound examination is performed between 11 weeks and 13 weeks gestational age. Blood tests are drawn after the ultrasound and again later in the between 15 and 21 weeks gestational age. Please let your physician know if you are interested in this testing. It will require an appointment with our garage door service technician. This is not an ultrasound performed by a physician in our office during a routine visit. SIGNS AND SYMPTOMS OF LABOR 1. Contractions every 10 minutes or more often 2. Clear, pink, or brownish fluid (water) leaking from vagina 3. Feeling that baby is pushing down, pressure 4. Low, dull backache 5. Cramps that feel like a period 6. Cramps with or without diarrhea If you notice any of the above symptoms, contact our office at [phone] and ask to speak with a nurse. After hours, you can call doctors registry at [phone] OR call [facility] at [phone] and ask to have the doctor front office associate paged. If you consider this an emergency, dial [phone]- or go to your nearest emergency department. NEED HELP? Are you dealing with a violent or abusive relationship? Are you a victim of rape or sexual assult? Call [facility] ([facility] 24 hour Crisis Hotline: 624.308.8565 or 261-433-9892. MANUAL Your Guide to a Healthy manual is now on-line. Visit [email or web address] to download your free copy documented in this encounter [facility] 09-17-2023 Miscellaneous Notes Formattin g of this note might be different from the original. S: Sarah is a 27 year old female who presents at 25w0d for a routine visit. Feeling movement. Denies headache, visual changes, chest pain, shortness of breath, vaginal bleeding, leakage of fluid, or dysuria. Feeling well, no complaints. O: See flow sheet Gen: No apparent distress Abd: Gravid, nontender, S=D ASSESSMENT/PLAN: 1. Encounter for supervision of other normal in second trimester - ICD9: V22.1, ICD10: Z34.82 (primary diagnosis) - Kick counts for 28 weeks reviewed - 28 week labs ordered - O+ blood type 2. 25 weeks gestation of - ICD9: V22.2, ICD10: Z3A.25 - To discuss LARC next visit 3. due to - ICD9: V24.1, ICD10: Z39.1 - Discussed haaka use and colostrum collection 4. History of vacuum extraction assisted delivery - ICD9: V13.29, ICD10: Z87.59 - 4.5 hours of pushing 5. History of episiotomy - ICD9: V45.89, ICD10: Z98.890 - 4.5 hours of pushing Sheila Alexander APRN.DIRECTOR OF PROPERTY MANAGEMENT documented in this encounter [facility] 09-17-2023 Fiona Cox Ma - 09/17/2023 3:15 PM EST SEQUENTIAL SCREENINGS The [facility] offers sequential screenings for women who are interested in screenings for chromosomal abnormalities and certain defects during a . The sequential screen combines ultrasound and blood tests to determine the risk of chromosomal abnormalities, including Down's Syndrome (Trisomy 21) and Trisomy 18, as well as open neural tube defects including spina bifida. Ultrasound examination is performed between 11 weeks and 13 weeks gestational age. Blood tests are drawn after the ultrasound and again later in the between 15 and 21 weeks gestational age. Please let your physician know if you are interested in this testing. It will require an appointment with our garage door service technician. This is not an ultrasound performed by a physician in our office during a routine visit. SIGNS AND SYMPTOMS OF LABOR 1. Contractions every 10 minutes or more often 2. Clear, pink, or brownish fluid (water) leaking from vagina 3. Feeling that baby is pushing down, pressure 4. Low, dull backache 5. Cramps that feel like a period 6. Cramps with or without diarrhea If you notice any of the above symptoms, contact our office at [phone] and ask to speak with a nurse. After hours, you can call doctors registry at [phone] OR call [facility] at [phone] and ask to have the doctor front office associate paged. If you consider this an emergency, dial 9-1-4 or go to your nearest emergency department. NEED HELP? Are you dealing with a violent or abusive relationship? Are you a victim of rape or sexual assult? Call [facility] ([place]) 24 hour Crisis Hotline: 337.557.5422 or 293-004-0031. MANUAL Your Guide to a Healthy manual is now on-line. Visit [email or web address] to download your free copy documented in this encounter [facility] 07-21-2023 Miscellaneous Notes Formattin g of this note might be different from the original. See [employer] message. Form signed. documented in this encounter [facility] 06-25-2023 Note HNO ID: [id number] Author: Inessa Hernandes LPN Service: ? Author Type: ? Type: Progress Notes Filed: 06/25/2023 3:49 PM Note Text: Patient here for First Trimester Screening. See ultrasound report for details. Options for genetic screening and diagnosis discussed with the patient. Patient opts for first trimester screening and the sequential screening protocol. Limitations of screening tests discussed with the patient. Anton Browning MD [facility] 06-25-2023 Miscellaneous Notes Formattin g of this note might be different from the original. KJ - No VB/LOF/ctxs. A&P: NT today - prelim read shows 2 cm hematoma. Patient had brown spotting 2 weeks ago but denies anything since then. Declines sequential screen or NIPT Scheduled anatomy US Anton Browning MD documented in this encounter [facility] 06-25-2023 History of Presen t illness Narrative Patient here for First Trimester Screening. See ultrasound report for details. Options for genetic screening and diagnosis discussed with the patient. Patient opts for first trimester screening and the sequential screening protocol. Limitations of screening tests discussed with the patient. Anton Browning MD documented in this encounter [facility] 06-25-2023 Instructions Fiona Rendon Ma - 06/25/2023 3:30 PM EDT SEQUENTIAL TESTING PROCESS Sequential Screen First Trimester Today you are currently: 13w0d weeks 06/25/2023: Ultrasound and blood test. Sequential Screen Second Trimester (16-17 Weeks Gestation) When you are called with your results, the nurse will give the optimal draw dates for the Sequential screen second trimester. Blood testing can be done at any [facility] lab. Please report to the any siderographer office front counter attendant for the Sequential Part 2 requisition and order before reporting to the lab. Your weight will need to be documented for testing. Please note: -No appointment is need for your second blood draw. -Office hours are 8 am to 4:30 pm. -Please have testing done prior to 12 noon on Thursday's -Once the sequential testing is started, in the first trimester the only follow-up will be for the sequential screen second trimester. Please don't have a Quad screen ordered by another provider. If you or your Provider have any questions please call your maternal medicine office, for east side please call [phone] or for the West side call [phone] and ask for the the nurse. Thank you. SEQUENTIAL SCREENINGS The [facility] offers sequential screenings for women who are interested in screenings for chromosomal abnormalities and certain defects during a . The sequential screen combines ultrasound and blood tests to determine the risk of chromosomal abnormalities, including Down's Syndrome (Trisomy 21) and Trisomy 18, as well as open neural tube defects including spina bifida. Ultrasound examination is performed between 11 weeks and 13 weeks gestational age. Blood tests are drawn after the ultrasound and again later in the between 15 and 21 weeks gestational age. Please let your physician know if you are interested in this testing. It will require an appointment with our garage door service technician. This is not an ultrasound performed by a physician in our office during a routine visit. SIGNS AND SYMPTOMS OF LABOR 1. Contractions every 10 minutes or more often 2. Clear, pink, or brownish fluid (water) leaking from vagina 3. Feeling that baby is pushing down, pressure 4. Low, dull backache 5. Cramps that feel like a period 6. Cramps with or without diarrhea If you notice any of the above symptoms, contact our office at [phone] and ask to speak with a nurse. After hours, you can call doctors registry at [phone] OR call [facility] at [phone] and ask to have the doctor front office associate paged. If you consider this an emergency, dial 9-1-1 or go to your nearest emergency department. NEED HELP? Are you dealing with a violent or abusive relationship? Are you a victim of rape or sexual assult? Call [facility] [place] ([facility] 24 hour Crisis Hotline: 292.329.7020 or 214-996-3938. MANUAL Your Guide to a Healthy manual is now on-line. Visit [email or web address] to download your free copy documented in this encounter [facility] 06-10-2023 Miscellaneous Notes Formattin g of this note might be different from the original. Ob patient is 10w6d and reports that spotting has not worsened. Patient only noticed the brownish spotting when vaginal progesterone was seeping out in the morning. Call and see how she is feeling today. Make sure bleeding not worse. documented in this encounter [facility] 06-03-2023 Miscellaneous Notes Formattin g of this note might be different from the original. Patient notified. Will go to the lab tomorrow. Did not have initial labs drawn. Will have those done too. Brittani Casillas RN I would like her to leave another sample prior to ordering abx. Have her push fluids now. Order placed for urine. If urine dip is concerning I will order abx for her zenon. 9w6d Patient seen for initial OB visit on 06/01. States she is having dysuria, frequency, and feeling like she isn't completely emptying her bladder. Urine culture results show insignificant colony count. Would you like to treat patient? Brittani Casillas RN documented in this encounter [facility] 06-01-2023 Note HNO ID: [id number] Author: Arcelia Macias MD Service: ? Author Type: Physician Type: Progress Notes Filed: 06/01/2023 12:42 PM Note Text: Sheet Metal Erector offered: Patient declines. INITIAL OB ASSESSMENT OB Provider: Arcelia Macias DO HPI: Sarah is a 27 year old White here to establish Obstetrical Care. Patient's last menstrual period was 03/26/2023 (exact date). from OB Dating Form. Cycles h/o miscarriage was planned Complaints: None OB History T1 L1 SAB3 IAB0 Ectopic0 Multiple0 Live Births1 Previous history: Prior : never History of 4th degree laceration: No History of shoulder dystocia: No History of Hypertensive disorders including pre-eclampsia, chronic hypertension or gestational hypertension: No History of gestational diabetes: No Patient's Risk Screening for delivery: MEDICAL/PSYCHOSOCIAL HISTORY: History of hemorrhage or bleeding concerns: No Thyroid Disease: No History of chronic hypertension: No History of pre-existing diabetes: No ABO/RH(D) Date Value Ref Range Status 06/12/2020 O POSITIVE Final BMI 20.89 kg/(m2) History of abnormal pap: No Prior treatment for cervical dysplasia: none. 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 I don't have enough money to pay my bills: Never Within the past 12 months, have you worried that your food would run out before you had money to buy more: Never In the past 12 months, has lack of reliable transportation kept you from going to medical appointments or work, or from keeping things needed for daily living: Never In the past 12 months, have you had any concerns about having a place to live, or about the condition or quality of your housing: Never Are there any cultural or spiritual needs we should be aware of: No Depression: denies symptoms of depression. OB Depression and Anxiety Screening- This Encounter (since 05/31/2023) None GENETIC SCREENING: Partner present: Yes Patient verbalized knowledge of partner family health history: No Do you or your partner have any personal or family history of defects not previously discussed: No Do you have history of a complicated by anomaly, genetic condition, or demise: No Marital Status: Partner: Name: Levar Age: 27 Occupation: [employer] Gender: Male History of STDs: None PAST MEDICAL HISTORY Diagnosis Date Anemia Migraines Miscarriage Staph infection 2004 right finger-hospitalized for 5 days PAST SURGICAL HISTORY Procedure Laterality Date APPENDECTOMY HX PAST SURGICAL HISTORY OF Right right 2nd finger-staph infection TOOTH EXTRACTION Screven teeth [facility] (OFFICE IPAS) Current Outpatient Medications Medication Sig Dispense Refill Sdyekjdr-Yb-Kzi-Fe-FA ( VITAMIN) tab Take 1 tablet by mouth. iron,carbonyl (IRON CHEWS ORAL) Take by mouth. progesterone micronized (PROMETRIUM) 200 mg capsule Use 1 capsule vaginally once daily. 30 capsule 2 Norethindrone, Contraceptive, 0.35 mg tablet Take 1 tablet by mouth once daily. (Patient not taking: No sig reported) 3 Package 4 ubrogepant (UBRELVY) 50 mg tablet Take 50 mg by mouth as needed. (Patient not taking: Reported on 05/14/2023) riboflavin, vitamin B2, (RIBOFLAVIN ORAL) Take by mouth. (Patient not taking: No sig reported) No current facility-administered medications for this visit. Allergies As of Date: 06/01/2023 (No Known Allergies) Fully Assessed 06/01/2023 Does patient have penicillin allergy: No REVIEW OF SYSTEMS: GENERAL: Negative for: Fever or Chills HEENT: Negative for: Headache, Impaired Vision, Ringing in Ears, Nosebleeds NECK: Negative for: Swelling, Pain, Stiffness RESPIRATORY: Negative for: Cough, Shortness of breath, Wheezing GASTROINTESTINAL: Negative for: Heartburn, Constipation, Diarrhea, Blood in stool, Vomiting MUSCULOSKELETAL: Negative for: Muscle or joint pain, stiffness, Joint swelling NEUROLOGIC/PSYCHIATRIC: Negative for: Weakness, Paralysis, Numbness, Tingling, Tremor, Anxiety, Depression, Memory loss SKIN: Negative for: Rash, Itching GENITOURINARY: Negative for: vaginal itching, vaginal discharge, hematuria or dysuria PHYSICAL EXAM: BP 102/60 Ht 5' 10 (1.78m) Wt 145 lb 9.6 oz (66.0kg) LMP 03/26/2023 BMI 20.89 kg/(m2). GENERAL: pleasant in no apparent distress DERMATOLOGY: Normal, without lesions, non-icteric, an (more content not included)... [facility] 05-14-2023 Note HNO ID: [id number] Author: Caridad Adam RN Service: ? Author Type: ? Type: Progress Notes Filed: 05/14/2023 5:06 PM Note Text: # 1 - Date: 03/2020, Sex: None, Weight: None, GA: None, Delivery: SPONTANEOUS , Apgar1: None, Apgar5: None, Living: None, Comments: None # 2 - Date: 01/12/21, Sex: Male, Weight: 8 lb 1 oz (3.657 kg), GA: 39w2d, Delivery: Vaginal, Vacuum (Extractor), Apgar1: 8, Apgar5: 9, Living: Living, Comments: elective induction for COVID in 3rd trimester, EBL 400 mL, RML episiotomy, 2nd degree laceration # 3 - Date: 11/23/22, Sex: None, Weight: None, GA: None, Delivery: MISSED AB, Apgar1: None, Apgar5: None, Living: None, Comments: IPAS # 4 - Date: 03/26/23, Sex: None, Weight: None, GA: None, Delivery: SPONTANEOUS , Apgar1: None, Apgar5: None, Living: None, Comments: None # 5 - Date: None, Sex: None, Weight: None, GA: None, Delivery: None, Apgar1: None, Apgar5: None, Living: None, Comments: None [facility] 05-14-2023 Miscellaneous Notes Formattin g of this note might be different from the original. DISTANCE HEALTH VISIT This Team Access Model visit is a phone encounter. It required patient-provider interaction for the medical decision making as documented below. I have communicated my name and active licensure. The patient's identity and physical location were verified at the time of this visit. Patient is 5 para 1 with a history of recurrent miscarriages. She states she had left-sided pain for 1 day but that has resolved. She has been followed by [facility] this she denies any bleeding. She is scheduled for an ultrasound tomorrow. Patient declines aneuploidy screening. Patient considering genetic carrier screening testing. Contact information for myriad labs given to patient to check on insurance coverage.Caridad Adam RN documented in this encounter [facility] 05-14-2023 History of Presen t illness Narrative # 1 - Date: 03/2020, Sex: None, Weight: None, GA: None, Delivery: SPONTANEOUS , Apgar1: None, Apgar5: None, Living: None, Comments: None # 2 - Date: 01/12/21, Sex: Male, Weight: 8 lb 1 oz (3.657 kg), GA: 39w2d, Delivery: Vaginal, Vacuum (Extractor), Apgar1: 8, Apgar5: 9, Living: Living, Comments: elective induction for COVID in 3rd trimester, EBL 400 mL, RML episiotomy, 2nd degree laceration # 3 - Date: 11/23/22, Sex: None, Weight: None, GA: None, Delivery: MISSED AB, Apgar1: None, Apgar5: None, Living: None, Comments: IPAS # 4 - Date: 03/26/23, Sex: None, Weight: None, GA: None, Delivery: SPONTANEOUS , Apgar1: None, Apgar5: None, Living: None, Comments: None # 5 - Date: None, Sex: None, Weight: None, GA: None, Delivery: None, Apgar1: None, Apgar5: None, Living: None, Comments: None documented in this encounter [facility] 05-11-2023 Telephone encount er Note Images from the original note were not included. CoverMyMeds ? Checked for previous INSURANCE encounter Current PA expires 05/23/2023 ?Checked med list or last office note, pt is currently taking medication ?Checked prescribing provider [facility] 05-11-2023 Miscellaneous Notes Formattin g of this note is different from the original. Images from the original note were not included. CoverMyMeds ? Checked for previous INSURANCE encounter Current PA expires 05/23/2023 ?Checked med list or last office note, pt is currently taking medication ?Checked prescribing provider documented in this encounter [facility] 03-20-2023 Miscellaneous Notes Formattin g of this note might be different from the original. Appointments scheduled. Leann Leslie RN Yea I would say 7 weeks would be fine unless she has any bleeding. Do you need her to have a dating/viability US? documented in this encounter [facility] 11-26-2022 History of Presen t illness Narrative Sarah Campuzano is a 26 year old female who presents for follow-up missed . Patient reports over the weekend started bleeding heavily and on Thursday passed tissue. She states she took a picture and could see the fetus inside the sac. She states that since that time her bleeding has slowed but she still passes about 10 large clots per day. She states that on her way here was the first time she felt dizzy. She states that the dizziness is not consistent. Patient states that the bleeding is not continuously having. She does have some cramping. Patient offers no other concerns she denies any fevers. OB History T1 L1 SAB0 IAB0 Ectopic0 Multiple0 Live Births1 Extras Casting Director History LMP: 10/09/2022, Unknown Age at Menarche: Age at First : Age at Menopause: Extras Casting Director History Comments: Sexual Activity: Not Asked; Male; not asked Contraception: Condom PAST MEDICAL HISTORY Diagnosis Date Anemia Migraines PAST SURGICAL HISTORY Procedure Laterality Date APPENDECTOMY HX TOOTH EXTRACTION Screven teeth FAMILY HISTORY Problem Relation Age of Onset No Known Problems Father Rheumatologic disease Mother No Known Problems Sister Heart Maternal Grandmother Diabetes Maternal Grandmother Rheumatologic disease Maternal Grandfather Social History Tobacco Use Smoking status: Never Smokeless tobacco: Never Vaping Use Vaping Use: Never used Substance Use Topics Alcohol use: No Drug use: No Current Outpatient Medications Medication Sig doxycycline (VIBRA-TABS) 100 mg tablet Take 2 tablets by mouth one time only for 1 dose. Norethindrone, Contraceptive, 0.35 mg tablet Take 1 tablet by mouth once daily. (Patient not taking: Reported on 11/19/2022) ubrogepant (UBRELVY) 50 mg tablet Take 50 mg by mouth as needed. Gzbgzlnz-Sj-Ahv-Fe-FA ( VITAMIN) tab Take 1 tablet by mouth. iron,carbonyl (IRON CHEWS ORAL) Take by mouth. riboflavin, vitamin B2, (RIBOFLAVIN ORAL) Take by mouth. (Patient not taking: Reported on 11/19/2022) No current facility-administered medications for this visit. Allergies As of Date: 11/26/2022 (No Known Allergies) Fully Assessed 11/26/2022 REVIEW OF SYSTEMS Abdomen: cramping. Expanded ROS: GENERAL: Negative for fever Allergies and current medication updated:Yes EXAM: BP 110/72 Resp 113 Wt 144 lb (65.3kg) LMP 10/09/2022 GENERAL: pleasant, female in no apparent distress HEENT: Normocephalic and atraumatic PELVIC: external genitalia normal, normal Bartholin's glands, urethra, Briggsdale's glands, no vulvar lesions, no cervical lesions, good vaginal support, normal appearing perineal body and perianal region, moderate amount of blood in the vault. Cervix appears 1 cm dilated. NEURO: alert and oriented x3,exam grossly non-focal EXTREMITIES: normal Limited bedside ultrasound does reveal a thickened lining with heterogeneous area at the fundal aspect. Likely consistent with retained products of conception ASSESSMENT AND PLAN: Encounter Diagnosis ICD-10-CM 1. Incomplete spontaneous without complication O03.4 SURGICAL PATHOLOGY 2. Discussed with the patient options as far as expectant management versus medical management with Cytotec versus surgical management. I discussed with the patient that I feel that she is a good candidate for surgical intervention as there is only a small amount of tissue. After discussion including risk benefits patient would like to proceed with surgical intervention at this time with an in office IPAS procedure. Consent was obtained and staff was notified. Postoperative antibiotics were ordered with the patient. Preoperative Toradol was ordered. We will proceed with in office evacuation of the uterus. 3. Rh Postive. 4. Doxycycline post op ordered. Medical Decision Making: Problems: Moderate: Acute illness with systemic symptoms Risk: Moderate: Decision on minor surgery w/ risk factors and Drug management Medical Decision Making Level: 4 - Moderate Francesco Matos MD Pre Procedure Assessment: Sarah Campuzano is a 26 year old here for an RUTH ANN procedure. Patient's last menstrual period was Patient's last menstrual period was 10/09/2022. (approximate). Reason for procedure: Missed Anxiolytic Checklist Has ride home? Yes Current use of prescribed or non-prescribed opioids or benzos: No Medications: Provided by office:Toradol 60 mg IM Blood Type: O Hemoglobin: Hemoglobin Date Value Ref Range Status 11/19/2022 13.8 11.5 - 15.5 g/dL Final Rhophylac Administered:No Procedure end time: 1210 Post Procedure Assessment: Time of first post-procedure assessment: 1211 Vitals: BP 124/80 HR 94 SpO2 100 RR 14 Bleeding:Moderate Pain ratin Time of second post-procedure assessment: 1230 Vitals: BP 114/70 HR 80 SpO2 99 RR 16 Bleeding:Light Pain Ratin Arlin Rivera RN UNIVERSAL PROTOCOL / SAFETY CHECKLIST Procedure to be Performed: IPAS- manual evacuation of uterus Sign In: A Moment of CARE was completed. Personnel directly involved with the procedure wore the appropriate PPE (Personal Protective Equipment). Patient/Surrogate Stated/Verified: PATIENT VERIFIED(optional for EMERGENT procedures): Patient name, Date of , Relevant allergies, and The intended procedure Time Out Communication: Intended patient and procedure match the source documents. Consent documented and matches the intended procedure. Sign Out: SIGN OUT (optional for EMERGENT procedures): All specimen containers correctly labeled. Arlin Rivera RN Procedure note: Speculum was placed in the vagina. After prepping the cervix with betadine paracervical block was performed using 10cc of 1% lidocaine with 1:100,000 epi. Using sterile technique, the Manual Vacuum Aspiration device with size 6 cannula was inserted into the uterus and contents were evacuated. Post-procedure vital signs were obtained and stable Patient tolerated procedure well. PLAN: Patient was advised to observe for signs and symptoms of infection including but not limited to fever, malodorous vaginal discharge and/or pain. Bleeding expectations were reviewed. Follow up: as needed Francesco Matos MD documented in this encounter [facility] 11-24-2022 Miscellaneous Notes Formattin g of this note might be different from the original. Patient notified. Will have HCG drawn this afternoon. Already had an appointment with DM on Thursday. Patient will keep this day/time. Brittani Casillas RN I am happy to see her this week to follow-up to do a bedside ultrasound and see if she passed all the tissue. As long as bleeding is controlled she can be scheduled later this week. HCG ordered. Patient called in to office today too. States her bleeding is less today then last night. Had heavy bleeding x4 hours last night. Using only panty liner this morning now. No pain currently. Please advise regarding appointments. Leann Leslie RN documented in this encounter [facility] 11-19-2022 History of Presen t illness Narrative Sarah Campuzano is a 26 year old female who presents for vaginal bleeding in early . Patient states she is noticed bright red bleeding and had a little bit of cramping more on the left side. Patient states it started on 11/17/2022. She denies passing any large clots or any tissue. She reports LMP is October 09, 2022. Patient offers no other concerns at this time today. Had an official ultrasound today which does show a 5-week 6-day pole no cardiac activity and does show a subchorionic hemorrhage. OB History T1 L1 SAB0 IAB0 Ectopic0 Multiple0 Live Births1 Extras Casting Director History LMP: 04/12/2020, Unknown Age at Menarche: Age at First : Age at Menopause: Extras Casting Director History Comments: Sexual Activity: Not Asked; Male; not asked Contraception: Condom PAST MEDICAL HISTORY Diagnosis Date Anemia Migraines PAST SURGICAL HISTORY Procedure Laterality Date APPENDECTOMY HX TOOTH EXTRACTION Screven teeth FAMILY HISTORY Problem Relation Age of Onset No Known Problems Father Rheumatologic disease Mother No Known Problems Sister Heart Maternal Grandmother Diabetes Maternal Grandmother Rheumatologic disease Maternal Grandfather Social History Tobacco Use Smoking status: Never Smokeless tobacco: Never Vaping Use Vaping Use: Never used Substance Use Topics Alcohol use: No Drug use: No Current Outpatient Medications Medication Sig Norethindrone, Contraceptive, 0.35 mg tablet Take 1 tablet by mouth once daily. ubrogepant (UBRELVY) 50 mg tablet Take 50 mg by mouth as needed. Xoretvbv-Fg-Zez-Fe-FA ( VITAMIN) tab Take 1 tablet by mouth. iron,carbonyl (IRON CHEWS ORAL) Take by mouth. riboflavin, vitamin B2, (RIBOFLAVIN ORAL) Take by mouth. No current facility-administered medications for this visit. Allergies As of Date: 11/19/2022 (No Known Allergies) Fully Assessed 11/19/2022 REVIEW OF SYSTEMS Abdomen: mild cramping. Expanded ROS: GENERAL: Negative for fever Allergies and current medication updated:Yes EXAM: BP 116/72 LMP 10/09/2022 GENERAL: pleasant, female in no apparent distress HEENT: Normocephalic and atraumatic NECK: full range of motion DERMATOLOGY: without lesions NEURO: alert and oriented x3,exam grossly non-focal ASSESSMENT AND PLAN: Encounter Diagnosis ICD-10-CM 1. Bleeding in early O20.9 CBC TYPE + SCREEN HCG QUANTITATIVE OBSTETRIC ULTRASOUND WHI 2. Threatened O20.0 3. Discussed findings on today's ultrasound with the patient. We will get serial hCG levels. We discussed bleeding precautions. She understands when to call the office. We will get an official ultrasound in 1 week to check for viability. At this time she will keep her new OB appointment scheduled for December 08. Labs to be done today. All questions were answered to the best of my ability. Patient understands and is happy with the plan of care. Medical Decision Making: Problems: Moderate: New problem with uncertain prognosis Data: Unique test(s) ordered: 3+ Medical Decision Making Level: 4 - Moderate Francesco Matos MD documented in this encounter [facility] 11-17-2022 Miscellaneous Notes Formattin g of this note might be different from the original. Patient notified. Dating US scheduled on 11/19/22. Brittani Casillas RN Recommend call us or to ED if acute pain. Schedule dating US here, or in radiology if we don't have opeinings. Thanks. Meka Brown MD LMP 10/09/22 5w4d Patient had lower left sided pelvic pain 2 weeks ago that woke her up at night. Since then she's had intermittent mild dull aches in her pelvic area. Having light pink spotting only when she wipes. Typically happens first thing in the morning. PNOB and NOB scheduled. Ectopic and bleeding precautions reviewed. Please advise. Brittani Casillas RN ----- Message from [facility] sent at 11/17/2022 9:06 AM EST ----- Regarding: WHI/ANTHONY/ANY Contact: Patient has been identified by name and Date of : Yes Patient: Sarah Campuzano Date of : 1995 Provider for this encounter : Serena Chase MD Reason for call: Triage Was an appointment scheduled: No Reason for requesting visit: -LMP 10-09-2022/CRAMPING/LOWER LEFT ABDOMINAL PAIN/SPOTTING Person calling: self Return call to: self Call patient at: on cell [phone] (home) [phone] (cell) Payor: [employer] / Plan: [employer] OPEN ACCESS [employer] SELECT / Product Type: TATI / [facility] documented in this encounter [facility] 05-23-2022 Instructions AUTUMN Leahy - 05/23/2022 3:37 PM EDT -Continue ubrelvy PRN for migraine -Continue botox documented in this encounter [facility] 05-23-2022 History of Presen t illness Narrative [facility] Department of Neurology Headache Division Follow-up Visit ASSESSMENT: 26 y.o. female with no history significant, with migraine. PLAN: (Please see typed patient instructions for detailed instructions) ---> Acute Treatment: -Continue ubrelvy PRN for migraine ---> Preventive Treatment: -Continue botox Q3 months ---> Headache education was done. Discussed lifestyle modification including increased oral hydration, decreased caffeine, exercise and stress management. Discussed treatment options including preventive and acute medications, natural supplements, and infusion therapy. Discussed medication overuse headache and to limit use of acute treatments to no more than 2 days/week or 10 days/month. Discussed medication side effects, adverse reactions and drug interactions. The patient was instructed on keeping a diary. Written educational materials and patient instructions outlining all of the above were given. Pregancy and breast-feeding implications were discussed, if applicable. ---> Follow-up: 1 year with me Lydia Neumann, MS, AUTUMN Department of Neurology Headache Division/Interventional Pain Division [facility] Total time in minutes spent with patient, reviewing records, imaging, labs: 7 with more than 50% of the time spent in patient education/counselling/coordina ting care with the patient and /or family. cc: Devendra Chase [address] [place] [address] [place] [address] CC: migraine HPI: The patient was seen last 02/12/[address] Rose. That visit, she delivered her son a month ago, and did very well during with migraine. Was on B2, no Gi side effects. Had only two to three mijgraines, and tylenol worked well. She had RLS and was on iron also. She had ubrelvy but had not tried during , and she was to wait to use when she had weaned her son and no longer , since no data available on safety. In the interval period since last visit, she has been getting botox in her forehead every three months, and this has completely taken her migraines away. She only gets a migraine when she is due for her next round of botox. She states that she thinks she has only had 6 migraines in the past year. She also states that ubrelvy works well as a rescue, and resting continues to work well to take migraines away. When she does get a migraine, she has nausea, numbness, photophobia, and intense pain. She gets minor headaches every now and then. Missed Work? Yes, if she can't get her ubrelvy in time Caffeine- y, coffee Exercise- n Hydration- y Regular Meals- y Sleep- sleeps well Analgesic use- ubrelvy New Labs/Imaging: None MEDS: Current Outpatient Medications Medication Sig Dispense Refill ferrous sulfate 325 (65 Fe) MG tablet One tab daily with a meal 30 tablet 5 Riboflavin 100 MG capsule Two tabs twice a day 120 capsule 5 Ubrogepant (Ubrelvy) 50 MG tablet Take 50 mg by mouth As directed. One tab at onset of migraine, may repeat in two hours times one if no relief 10 tablet 6 No current facility-administered medications for this visit. Physical Examination: There were no vitals taken for this visit. There is no height or weight on file to calculate BMI. GEN: Alert. NAD. Normal affect. Cooperative. RESP: Breathing comfortably. NECK/BACK: Suboccipital tenderness absent. Paracervical and upper shoulder musculature/traps tenderness and hypertonicity absent. NEUROLOGICAL: Alert and oriented. Attentive. Thought process and content unremarkable. Follows commands appropriately. Speech fluent. 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 No pronator drift. Sensation intact to light touch. Jtavmh-am-auoj testing absent for ataxia. Stable primary gait. Normal tandem walking. Migraine Disability Assessment Test (MIDAS) score: 7 documented in this encounter [facility] 05-23-2022 Telephone encount er Note Medication Access Team coordinated the following: [facility] Clin[facility]: MS/Neurology Prior Authorization Per the patient's insurance provider, [facility], the prior authorization for Ubrelvy (on-label) was approved. Authorization number: [id number] Authorization start date: 04/23/2022 Authorization end date: 05/23/2023 Non-Oncology Specialty Prescriptions: 1, 25-30 min Luis Angel Fuentes [facility] 05-23-2022 Miscellaneous Notes Formattin g of this note might be different from the original. Medication Access Team coordinated the following: [facility] Clinics: MS/Neurology Prior Authorization Per the patient's insurance provider, [employer], the prior authorization for Ubrelvy (on-label) was approved. Authorization number: [id number] Authorization start date: 04/23/2022 Authorization end date: 05/23/2023 Non-Oncology Specialty Prescriptions: 1, 25-30 min Luis Angel Fuentes Images from the original note were not included. CoverMyMeds ? Checked for previous INSURANCE encounter Current auth expires 05/22/2022 ?Checked med list or last office note, pt is currently taking medication ?Checked prescribing provider documented in this encounter [facility] 05-09-2022 Telephone encount er Note Images from the original note were not included. CoverMyMeds ? Checked for previous INSURANCE encounter Current auth expires 05/22/2022 ?Checked med list or last office note, pt is currently taking medication ?Checked prescribing provider [facility] documented as of this encounter (statuses as of 11/17/2022) [facility] History of Past illness Narrative* Problem Noted Date Resolved Date COVID-19 affecting in third trimester 12/27/2020 02/18/2021 Encounter for supervision of normal in first trimester 06/12/2020 02/18/2021 documented as of this encounter (statuses as of 11/19/2022) [facility] History of Past illness Narrative* Problem Noted Date Resolved Date COVID-19 affecting in third trimester 12/27/2020 02/18/2021 Encounter for supervision of normal in first trimester 06/12/2020 02/18/2021 documented as of this encounter (statuses as of 11/20/2022) [facility] History of Past illness Narrative* Problem Noted Date Resolved Date COVID-19 affecting in third trimester 12/27/2020 02/18/2021 Encounter for supervision of normal in first trimester 06/12/2020 02/18/2021 documented as of this encounter (statuses as of 11/24/2022) [address]18-2021 History of Past illness Narrative* Problem Noted Date Resolved Date COVID-19 affecting in third trimester 12/27/2020 02/18/2021 Encounter for supervision of normal in first trimester 06/12/2020 02/18/2021 documented as of this encounter (statuses as of 11/27/2022) [address]18-2021 History of Past illness Narrative* Problem Noted Date Resolved Date COVID-19 affecting in third trimester 12/27/2020 02/18/2021 Encounter for supervision of normal in first trimester 06/12/2020 02/18/2021 documented as of this encounter (statuses as of 11/27/2022) [address]18-2021 History of Past illness Narrative* Problem Noted Date Resolved Date COVID-19 affecting in third trimester 12/27/2020 02/18/2021 Encounter for supervision of normal in first trimester 06/12/2020 02/18/2021 documented as of this encounter (statuses as of 12/17/2022) [address]18-2021 History of Past illness Narrative* Problem Noted Date Resolved Date COVID-19 affecting in third trimester 12/27/2020 02/18/2021 Encounter for supervision of normal in first trimester 06/12/2020 02/18/2021 documented as of this encounter (statuses as of 03/20/2023) [address]18-2021 History of Past illness Narrative* Problem Noted Date Resolved Date COVID-19 affecting in third trimester 12/27/2020 02/18/2021 Encounter for supervision of normal in first trimester 06/12/2020 02/18/2021 documented as of this encounter (statuses as of 05/15/2023) [address]18-2021 History of Past illness Narrative* Problem Noted Date Diagnosed Date Resolved Date COVID-19 affecting in third trimester 12/27/2020 02/18/2021 Encounter for supervision of normal in first trimester 06/12/2020 02/18/2021 documented as of this encounter (statuses as of 05/16/2023) [address]18-2021 History of Past illness Narrative* Problem Noted Date Diagnosed Date Resolved Date COVID-19 affecting in third trimester 12/27/2020 02/18/2021 Encounter for supervision of normal in first trimester 06/12/2020 02/18/2021 documented as of this encounter (statuses as of 05/18/2023) [address]18-2021 History of Past illness Narrative* Problem Noted Date Diagnosed Date Resolved Date COVID-19 affecting in third trimester 12/27/2020 02/18/2021 Encounter for supervision of normal in first trimester 06/12/2020 02/18/2021 documented as of this encounter (statuses as of 06/04/2023) [address]18-2021 History of Past illness Narrative* Problem Noted Date Diagnosed Date Resolved Date COVID-19 affecting in third trimester 12/27/2020 02/18/2021 Encounter for supervision of normal in first trimester 06/12/2020 02/18/2021 documented as of this encounter (statuses as of 06/11/2023) [address]18-2021 History of Past illness Narrative* Problem Noted Date Diagnosed Date Resolved Date COVID-19 affecting in third trimester 12/27/2020 02/18/2021 Encounter for supervision of normal in first trimester 06/12/2020 02/18/2021 documented as of this encounter (statuses as of 06/26/2023) [address]18-2021 History of Past illness Narrative* Problem Noted Date Diagnosed Date Resolved Date COVID-19 affecting in third trimester 12/27/2020 02/18/2021 Encounter for supervision of normal in first trimester 06/12/2020 02/18/2021 documented as of this encounter (statuses as of 06/26/2023) [address]18-2021 History of Past illness Narrative* Problem Noted Date Diagnosed Date Resolved Date COVID-19 affecting in third trimester 12/27/2020 02/18/2021 Encounter for supervision of normal in first trimester 06/12/2020 02/18/2021 documented as of this encounter (statuses as of 07/09/2023) [address]18-2021 History of Past illness Narrative* Problem Noted Date Diagnosed Date Resolved Date COVID-19 affecting in third trimester 12/27/2020 02/18/2021 Encounter for supervision of normal in first trimester 06/12/2020 02/18/2021 documented as of this encounter (statuses as of 07/21/2023) [address]18-2021 History of Past illness Narrative* Problem Noted Date Diagnosed Date Resolved Date COVID-19 affecting in third trimester 12/27/2020 02/18/2021 Myopia - Both Eyes 02/19/2015 3 Regular astigmatism - Both Eyes 02/19/2015 08/17/2023 documented as of this encounter (statuses as of 08/18/2023) [address]18-2021 History of Past illness Narrative* Problem Noted Date Diagnosed Date Resolved Date COVID-19 affecting in third trimester 12/27/2020 02/18/2021 Myopia - Both Eyes 02/19/2015 3 Regular astigmatism - Both Eyes 02/19/2015 08/17/2023 documented as of this encounter (statuses as of 09/18/2023) [address]18-2021 History of Past illness Narrative* Problem Noted Date Diagnosed Date Resolved Date COVID-19 affecting in third trimester 12/27/2020 02/18/2021 Myopia - Both Eyes 02/19/2015 3 Regular astigmatism - Both Eyes 02/19/2015 08/17/2023 documented as of this encounter (statuses as of 09/22/2023) [address]18-2021 History of Past illness Narrative* Problem Noted Date Diagnosed Date Resolved Date COVID-19 affecting in third trimester 12/27/2020 02/18/2021 Myopia - Both Eyes 02/19/2015 3 Regular astigmatism - Both Eyes 02/19/2015 08/17/2023 documented as of this encounter (statuses as of 10/12/2023) [address]18-2021 History of Past illness Narrative* Problem Noted Date Diagnosed Date Resolved Date COVID-19 affecting in third trimester 12/27/2020 02/18/2021 Myopia - Both Eyes 02/19/2015 3 Regular astigmatism - Both Eyes 02/19/2015 08/17/2023 documented as of this encounter (statuses as of 12/17/2023) [facility] History of Past illness Narrative* Problem Noted Date Diagnosed Date Resolved Date COVID-19 affecting in third trimester 12/27/2020 02/18/2021 Myopia - Both Eyes 02/19/2015 3 Regular astigmatism - Both Eyes 02/19/2015 08/17/2023 documented as of this encounter (statuses as of 12/25/2023) [facility]* Diagnosis Migraine with aura and without status migrainosus, not intractable- Primary Migraine with aura, without mention of intractable migraine without mention of status migrainosus [facility] Diagnosis Threatened - Primary Threatened , unspecified as to episode of care documented [facility] encounter [facility]* Diagnosis Bleeding in early - Primary Unspecified hemorrhage in early , unspecified as to episode of care Threatened Threatened , unspecified as to episode of care documented [facility]* Diagnosis Bleeding in early - Primary Unspecified hemorrhage in early , unspecified as to episode of care [facility] Diagnosis Bleeding in early - Primary Unspecified hemorrhage in early , unspecified as to episode of care [facility] Diagnosis Incomplete spontaneous without complication- Primary Incomplete spontaneous without mention of complication [facility] Diagnosis Threatened Threatened , unspecified as to episode of care [facility] Diagnosis Previous recurrent miscarriages affecting , antepartum- Primary [facility] Diagnosis with uncertain dates in first trimester- Primary Bleeding in early Unspecified hemorrhage in early , unspecified as to episode of care [facility] Diagnosis Dysuria- Primary [facility]* Diagnosis Encounter for screening of mother- Primary Unspecified screening 13 weeks gestation of state, incidental [facility] Encounter for (NT) nuchal translucency scan- Primary Other specified screening 13 weeks gestation of state, incidental documented in this encounter [facility] note* Diagnosis Encounter for anatomic survey- Primary 20 weeks gestation of state, incidental [facility]* Diagnosis Encounter for supervision of other normal in second trimester- Primary 25 weeks gestation of state, incidental due to History of vacuum extraction assisted delivery Other postprocedural status History of episiotomy documented in this encounter [facility] note* Diagnosis Previous recurrent miscarriages affecting , antepartum- Primary Encounter for supervision of other normal in third trimester 28 weeks gestation of state, incidental [facility]* Diagnosis 38 weeks gestation of - Primary state, incidental [facility]* Diagnosis Encounter for supervision of other normal in third trimester- Primary 39 weeks gestation of state, incidental documented in this encounter [facility] for referral (narrative)* Diagnostic Procedure Only (Routine) - Authorized Specialty Diagnoses / Procedures Referred By Tonia t Referred To Contact [facility] Diagnoses Threatened Procedures OBSTETRIC ULTRASOUND WHI US PREG UTERUS AFTER 1ST TRIMEST GESTATION Meka Brown MD [address] [place] [address] [address] Referral ID Status Reason Start Date Expiration Date Visits Requested Visits Authorized [id number] Authorized Auto-Generat ed Referral 11/17/2022 11/17/2023 1 1 [facility] for referral (narrative)* Diagnostic Procedure Only (Routine) - Authorized Specialty Diagnoses / Procedures Referred By Contac t Referred To Contact [facility] Diagnoses Bleeding in early Procedures OBSTETRIC ULTRASOUND WHI US PREG UTERUS AFTER 1ST TRIMEST GESTATION Francesco Bowen MD [address] [place] [address] [facility] [address] [place] [address] Referral ID Status Reason Start Date Expiration Date Visits Requested Visits Authorized [id number] Authorized Auto-Generat ed Referral 11/19/2022 11/19/2023 1 1 [facility]* Diagnostic Procedure Only (Routine) - Closed Specialty Diagnoses / Procedures Referred By Tonia donovan Referred To Contact [facility] Diagnoses Threatened Procedures OBSTETRIC ULTRASOUND WHI US PREG UTERUS AFTER 1ST TRIMEST GESTATION Meka Brown MD [address] 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 Treat your fever with Tylenol (two 500 mg tablets). If you get short of breath or your symptoms worsen be sure to seek medical attention. I suggest staying home from work until you are cleared to return. Viral Infections: Care Instructions Your Care Instructions 9 Things To Do If You've Been Exposed to COVID-19 Stay home. If you've been exposed, you should stay in isolation for 14 days. Don't go to school, work, or public areas. And don't use public transportation. Leave your home only if you need to get medical care. But call the doctor's office first so they know you're coming, and wear a cloth face cover when you go. Call your doctor. Call your doctor or other health professional to let them know that you've been exposed. They might want you to be tested, or they may have other instructions for you. If you become sick, wear a face cover when you are around other people. It can help stop the spreadof the virus when you cough or sneeze. Limit contact with people in your home. If possible, stay in a separate bedroom and use a separate bathroom. Avoid contact with pets and other animals. Cover your mouth and nose with a tissue when you cough or sneeze. Then throw it in the trash right away. Wash your hands often, especially after you cough or sneeze. Use soap and water, and scrub for at least 20 seconds. If soap and water aren't available, use an alcohol-based hand electronic masking system operator. Don't share personal household items. These include bedding, towels, cups and glasses, and eating utensils. Clean and disinfect your home every day. Use household oil dipper or disinfectant wipes or sprays. Take special care to clean things that you grab with your hands. These include doorknobs, remote controls, phones, and handles on your refrigerator and microwave. And don't forget countertops, tabletops, bathrooms, and computer keyboards. Current as of: March 02, 2020 Content Version: 12.4 [employer]. Care instructions adapted under license by your healthcare professional. If you have questions about a medical condition or this instruction, always ask your healthcare professional. [employer] disclaims any warranty or liability for your use of this information. documented in this encounter History of Present Illness * Mellisa Fritz MD - 03/24/2020 9:59 AM EDT Patient Name: [facility] Location: [facility] Campuz[facility] [address] [place] [id number] Date Of : Date Of Visit: 1995 03/24/2020 MRN# Provider: [id number] Mellisa Fritz MD Chief Complaint Patient presents with Cough Cough, vomiting, headache since last night. Works at [employer] with 9 positive covid Assessment & Plan 1. Cough 2. Fever, unspecified fever cause Return for Follow up with PCP. Medical Decision Making Patient with fever and cough. Vital signs of stable here with mild tachycardia. Educated on increasing fluid intake, Due to exposure with at risk population, decision made to order testing. The CCT was called. Patient given instructions on where to go for testing. She is stable. Additional Clinical Comments Educated patient and/or guardian about signs and symptoms that would warrant further immediate evaluation. Recommended that they should return to urgent care, make an appointment with their family physician, or go to the emergency room if symptoms persist or get acutely worse. Recommended follow upwithin the next week with their PCP or to get established with a PCP soon in order to follow up appropriately. [facility] COVID-19 Mask Status: Does the patient have classic COVID-19 symptoms? Yes, the patient has COVID-19 symptoms, the patient WAS wearing a mask during the visit, I (the provider) WAS wearing a mask during the visit., CCT was called for COVID-19 ordering and Vehicle Visit was utilized for this patient visit Subjective 24 y.o. female presents with Cough (Cough, vomiting, headache since last night. Works at [employer] with 9 positive covid ) Past 2 days she started to have emesis and headache. Yesterday she had a cough. She is currently quarantined due to exposure last Thursday. She is still working. No diarrhea/constipation/abdominal pain. No fever. She has checked at home and at work. She lives with her , no symptoms. No children in the home. She has no SOB. But she is fatigued. Review Of Systems Review of Systems Constitutional: Positive for appetite change and fatigue. Negative for chills, diaphoresis, fever and unexpected weight change. HENT: Negative for congestion and rhinorrhea. Respiratory: Positive for cough. Negative for chest tightness and shortness of breath. Cardiovascular: Negative for chest pain and palpitations. Gastrointestinal: Positive for nausea and vomiting. Negative for abdominal pain, constipation and diarrhea. Genitourinary: Negative. Musculoskeletal: Negative for arthralgias and back pain. Skin: Negative for rash. Neurological: Positive for headaches. Negative for weakness. Psychiatric/Behavioral: Negative for confusion and decreased concentration. Medical History History reviewed. No pertinent past medical history. Patient Active Problem List Diagnosis Constipation Social History Social History Socioeconomic History Marital status: Spouse name: Not on file Number of children: Not on file Years of education: Not on file Highest education level: Not on file Occupational History Not on file Social Needs Financial resource strain: Not on file Food insecurity Worry: Not on file Inability: Not on file Transportation needs Medical: Not on file Non-medical: Not on file Tobacco Use Smoking status: Never Smoker Smokeless tobacco: Never Used Substance and Sexual Activity Alcohol use: Yes Frequency: 2-4 times a month Drinks per session: 1 or 2 Binge frequency: Never Comment: socially Drug use: Never Sexual activity: Not on file Lifestyle Physical activity Days per week: Not on file Minutes per session: Not on file Stress: Not on file Relationships Social connections Talks on phone: Not on file Gets together: Not on file Attends judaism service: Not on file Active member of club or organization: Not on file Attends meetings of clubs or organizations: Not on file Relationship status: Not on file Other Topics Concern Not on file Social History Narrative Not on file Family History Family History Problem Relation Age of Onset Arthritis Mother No Known Problems Father Objective Physical Exam Pulse (!) 102 Temp 100 F (37.8 C) (Infrared) Resp 16 Ht 5' 10 Wt 68 kg (150 lb) LMP 03/19/2020 Comment: LMP end date SpO2 99% BMI 21.52 kg/m Vision/Hearing Exam:No exam data present Physical Exam Vitals signs reviewed. Constitutional: General: She is not in acute distress. Appearance: She is ill-appearing. HENT: Nose: No congestion. Eyes: Conjunctiva/sclera: Conjunctivae normal. Pupils: Pupils are equal, round, and reactive to light. Cardiovascular: Rate and Rhythm: Regular rhythm. Tachycardia present. Pulses: Normal pulses. Heart sounds: Normal heart sounds. Pulmonary: Effort: Pulmonary effort is normal. No respiratory distress. Breath sounds: Normal breath sounds. Lymphadenopathy: Cervical: Cervical adenopathy present. Right cervical: Superficial cervical adenopathy present. Left cervical: Superficial cervical adenopathy present. Skin: Capillary Refill: Capillary refill takes less than 2 seconds. Neurological: Mental Status: She is alert and oriented to person, place, and time. Psychiatric: Mood and Affect: Mood normal. Behavior: Behavior normal. Procedure Notes Procedures Results No results found for this or any previous visit (from the past 168 hour(s)). No orders to display Orders Placed This Visit No orders of the defined types were placed in this encounter. Medication List At End Of Visit No current outpatient medications on file. No current facility-administered medications for this visit. Patient Instructions Drink plenty of fluids. Treat your fever with Tylenol (two 500 mg tablets). If you get short of breath or your symptoms worsen be sure to seek medical attention. I suggest staying home from work until you are cleared to return. Viral Infections: Care Instructions Your Care Instructions 9 Things To Do If You've Been Exposed to COVID-19 Stay home. If you've been exposed, you should stay in isolation for 14 days. Don't go to school, work, or public areas. And don't use public transportation. Leave your home only if you need to get medical care. But call the doctor's office first so they know you're coming, and wear a cloth face cover when you go. Call your doctor. Call your doctor or other health professional to let them know that you've been exposed. They might want you to be tested, or they may have other instructions for you. If you become sick, wear a face cover when you are around other people. It can help stop the spreadof the virus when you cough or sneeze. Limit contact with people in your home. If possible, stay in a separate bedroom and use a separate bathroom. Avoid contact with pets and other animals. Cover your mouth and nose with a tissue when you cough or sneeze. Then throw it in the trash right away. Wash your hands often, especially after you cough or sneeze. Use soap and water, and scrub for at least 20 seconds. If soap and water aren't available, use an alcohol-based hand electronic masking system operator. Don't share personal household items. These include bedding, towels, cups and glasses, and eating utensils. Clean and disinfect your home every day. Use household oil dipper or disinfectant wipes or sprays. Take special care to clean things that you grab with your hands. These include doorknobs, remote controls, phones, and handles on your refrigerator and microwave. And don't forget countertops, tabletops, bathrooms, and computer keyboards. Current as of: March 02, 2020 Content Version: 12.4 [employer]. Care instructions adapted under license by your healthcare professional. If you have questions about a medical condition or this instruction, always ask your healthcare professional. [employer] disclaims any warranty or liability for your use of this information. documented in this encounter Assessments Diagnosis Cough Fever, unspecified fever cause Medications Administered Section Inactive Administered Medications - up to 3 most recent administrations Medication Order MAR Action Action Date Dose Rate Site keTORolac 60 mg injection (TORADOL) 60 mg, INTRAMUSCULAR, ONCE, 1 dose, On Thu11/26/22 at 1200, Ketorolac (Toradol) is indicated for the short-term (up to 5 days) management of moderately severe acute pain. Continuation of ketorolac (Toradol) beyond 5 days increases the risk of developing serious adverse events. Please verify the duration of therapy for ketorolac (Toradol)., If ordered PRN for pain, patient/guardian may elect to receive this medication for higher pain levels INSTEAD of the opioid, if preferred: Yes Given 11/26/2022 11:44 AM EST 60 mg Buttocks, Right Health Concerns Problem Noted Date Diagnosed Date [facility] - [facility] 06/01/2023 Education - [place] 06/01/2023 Problem Noted Date Diagnosed Date [facility] - [facility] 06/01/2023 Education - [place] 06/01/2023 Problem Noted Date Diagnosed Date [facility] - [facility] 06/01/2023 Education - [place] 06/01/2023 Problem Noted Date Diagnosed Date [facility] - [facility] 06/01/2023 Education - [place] 06/01/2023 Problem Noted Date Diagnosed Date [facility] - [facility] 06/01/2023 Education - [place] 06/01/2023 Problem Noted Date Diagnosed Date [facility] - [facility] 06/01/2023 Education - [place] 06/01/2023 Problem Noted Date Diagnosed Date [facility] - [facility] 06/01/2023 Education - [place] 06/01/2023 Problem Noted Date Diagnosed Date [facility] - [facility] 06/01/2023 Education - [place] 06/01/2023 Problem Noted Date Diagnosed Date [facility] - [facility] 06/01/2023 Education - [place] 06/01/2023 Problem Noted Date Diagnosed Date [facility] - [facility] 06/01/2023 Education - [place] 06/01/2023 Additional Source Comments INFORMATION SOURCE (unrecogn ized section and content) DATE CREATED AUTHOR AUTHOR'S ORGANIZ ATION 03/25/2020 [facility] DATE CREATED AUTHOR AUTHOR'S ORGANIZ ATION 03/25/2020 [facility] DATE CREATED AUTHOR AUTHOR'S ORGANIZ ATION 07/19/2022 [facility] DATE CREATED AUTHOR AUTHOR'S ORGANIZ ATION 12/27/2023 [facility] Reason for Visit (unrecogniz ed section and content) Reason Onset Date Comments Insurance 05/09/2022 [employer]rel[employer] 50 Reason Comments Follow-up Reason Onset Date Comments Early OB pain 11/17/2022 Reason Comments 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 Reason Comments Follow Up Reason Onset Date Comments Insurance 05/11/2023 Ubrelvy 50 Reason Comments Care Reason Comments US Specialty Diagnoses / Procedures Referred By Contac t Referred To Contact [facility] Diagnoses Bleeding in early Procedures OBSTETRIC ULTRASOUND WHI US PREG UTERUS AFTER 1ST TRIMEST GESTATION Francesco Bowen MD [address] [place] [address] [id number] [place] [address] Referral ID Status Reason Start Date Expiration Date V isits Requested Visits Authorized [id number] Closed Auto-Generate d Referral 11/19/2022 11/19/2023 1 1 Reason Comments OB UTI Symptoms Reason Onset Date Comments Care 06/25/2023 Specialty Diagnoses / Procedures Referred By Contac t Referred To Contact [facility] NAM[facility] Diagnoses 9 weeks gestation of Procedures NUCHAL TRANSLUCENCY WHI US NUCHAL TRANSLUCENCY 1ST GESTATION Arcelia Macias MD [address] [place] [address] [facility] [address] [place] [address] Referral ID Status Reason Start Date Expiration Date V isits Requested Visits Authorized [id number] Closed Auto-Generate d Referral 06/09/2023 11/08/2023 1 1 Specialty Diagnoses / Procedures Referred By Contac t Referred To Contact [facility] NAMED [facility] Diagnoses 9 weeks gestation of Procedures OBSTETRIC ULTRASOUND WHI US PREG UTERUS AFTER 1ST TRIMEST GESTATION Arcelia Macias MD [address] [place] [address] [facility] [address] [place] [address] Referral ID Status Reason Start Date Expiration Date Visits Requested Visits Authorized [id number] Authorized Auto-Generat ed Referral 07/29/2023 11/08/2023 20 20 Reason Onset Date Comments Care 09/17/2023 Reason Onset Date Comments Care 10/12/2023 Reason Onset Date Comments Care 12/17/2023 Reason Onset Date Comments Care Care 12/25/2023 Care Teams (unrecognized sec tion and content) Junior Qa Analyst Relationship Specialty Start Date End Date Devendra Chase MD [address] [facility] [address] [place] [id number] PCP - General Family Medicine 01/24/20 Junior Qa Analyst Relationship Specialty Start Date End Date Devendra Chase MD [address] [place], [place] [phone] PCP - General Family Medicine 07/06/18 Junior Qa Analyst Relationship Specialty Start Date End Date Devendra Chase MD [address] [place] [address] PCP - General Family Medicine 07/06/18 Junior Qa Analyst Relationship Specialty Start Date End Date Devendra Chase MD [address] [place] [address] PCP - General Family Medicine 07/06/18 Junior Qa Analyst Relationship Specialty Start Date End Date Devendra Chase MD [address] [place] [address] PCP - General Family Medicine 07/06/18 Junior Qa Analyst Relationship Specialty Start Date End Date Devendra Chase MD [address] [place] [address] PCP - General Family Medicine 07/06/18 Junior Qa Analyst Relationship Specialty Start Date End Date Devendra Chase MD [address] [place] [address] PCP - General Family Medicine 07/06/18 Junior Qa Analyst Relationship Specialty Start Date End Date Devendra Chase MD [address] [place] [address] PCP - General Family Medicine 07/06/18 Junior Qa Analyst Relationship Specialty Start Date End Date Devendra Chase MD [address] [place] [address] PCP - General Family Medicine 07/06/18 Junior Qa Analyst Relationship Specialty Start Date End Date Devendra Chase MD [address] [place] [address] [place] [id number] [phone] PCP - General Family Medicine 01/24/20 Junior Qa Analyst Relationship Specialty Start Date End Date Devendra Chase MD [address] [place] [address] [place] [address] PCP - General Family Medicine 07/06/18 Junior Qa Analyst Relationship Specialty Start Date End Date Devendra Chase MD [address] [place] [address] [place] [address] PCP - General Family Medicine 07/06/18 Junior Qa Analyst Relationship Specialty Start Date End Date Devendra Chase MD [address] [place] [address] [place] [address] PCP - General Family Medicine 07/06/18 Junior Qa Analyst Relationship Specialty Start Date End Date Devendra Chase MD [address] [place] [address] [place] [address] PCP - General Family Medicine 07/06/18 Junior Qa Analyst Relationship Specialty Start Date End Date Devendra Chase MD [address] [place] [address] PCP - General Family Medicine 07/06/18 Junior Qa Analyst Relationship Specialty Start Date End Date Devendra Chase MD [address] [place] [address] PCP - General Family Medicine 07/06/18 Junior Qa Analyst Relationship Specialty Start Date End Date Devendra Chase MD [address] [place] [address] PCP - General Family Medicine 07/06/18 Junior Qa Analyst Relationship Specialty Start Date End Date Devendra Chase MD [address] [place] [address] PCP - General Family Medicine 07/06/18 Junior Qa Analyst Relationship Specialty Start Date End Date Devendra Chase MD [address] [place] [address] PCP - General Family Medicine 07/06/18 Junior Qa Analyst Relationship Specialty Start Date End Date Devendra Chase MD [address] [place] [address] PCP - General Family Medicine 07/06/18 Junior Qa Analyst Relationship Specialty Start Date End Date Devendra Chase MD [address] [place] [address] PCP - General Family Medicine 07/06/18 Junior Qa Analyst Relationship Specialty Start Date End Date Devendra Chase MD [address] [place] [address] PCP - General Family Medicine 07/06/18 Source Comments (unrecognize d section and content) In the event this informatio n is protected by the Federal Confidentiality of Alcohol and Drug Abuse Patient Records regulations: The Federal rules restrict any use of the information to criminally investigate or prosecute any alcohol or drug abuse patient.[facility] PrebleIn the event this information is protected by the Federal Confidentiality of Alcohol and Drug Abuse Patient Records regulations: The Federal rules restrict any use of the information to criminally investigate or prosecute any alcohol or drug abuse patient.[facility] PrebleIn the event this information is protected by the Federal Confidentiality of Alcohol and Drug Abuse Patient Records regulations: The Federal rules restrict any use of the information to criminally investigate or prosecute any alcohol or drug abuse patient.[facility]bleIn the event this information is protected by the Federal Confidentiality of Alcohol and Drug Abuse Patient Records regulations: The Federal rules restrict any use of the information to criminally investigate or prosecute any alcohol or drug abuse patient.[facility] PrebleIn the event this information is protected by the Federal Confidentiality of Alcohol and Drug Abuse Patient Records regulations: The Federal rules restrict any use of the information to criminally investigate or prosecute any alcohol or drug abuse patient.[facility]bleIn the event this information is protected by the Federal Confidentiality of Alcohol and Drug Abuse Patient Records regulations: The Federal rules restrict any use of the information to criminally investigate or prosecute any alcohol or drug abuse patient.[facility]bleIn the event this information is protected by the Federal Confidentiality of Alcohol and Drug Abuse Patient Records regulations: The Federal rules restrict any use of the information to criminally investigate or prosecute any alcohol or drug abuse patient.[facility]bleIn the event this information is protected by the Federal Confidentiality of Alcohol and Drug Abuse Patient Records regulations: The Federal rules restrict any use of the information to criminally investigate or prosecute any alcohol or drug abuse patient.[facility]bleIn the event this information is protected by the Federal Confidentiality of Alcohol and Drug Abuse Patient Records regulations: The Federal rules restrict any use of the information to criminally investigate or prosecute any alcohol or drug abuse patient.[facility]In the event this information is protected by the Federal Confidentiality of Alcohol and Drug Abuse Patient Records regulations: The Federal rules restrict any use of the information to criminally investigate or prosecute any alcohol or drug abuse patient.[facility]In the event this information is protected by the Federal Confidentiality of Alcohol and Drug Abuse Patient Records regulations: The Federal rules restrict any use of the information to criminally investigate or prosecute any alcohol or drug abuse patient.[facility]bleIn the event this information is protected by the Federal Confidentiality of Alcohol and Drug Abuse Patient Records regulations: The Federal rules restrict any use of the information to criminally investigate or prosecute any alcohol or drug abuse patient.[facility]bleIn the event this information is protected by the Federal Confidentiality of Alcohol and Drug Abuse Patient Records regulations: The Federal rules restrict any use of the information to criminally investigate or prosecute any alcohol or drug abuse patient.[facility]bleIn the event this information is protected by the Federal Confidentiality of Alcohol and Drug Abuse Patient Records regulations: The Federal rules restrict any use of the information to criminally investigate or prosecute any alcohol or drug abuse patient.[facility]bleIn the event this information is protected by the Federal Confidentiality of Alcohol and Drug Abuse Patient Records regulations: The Federal rules restrict any use of the information to criminally investigate or prosecute any alcohol or drug abuse patient.[facility]bleIn the event this information is protected by the Federal Confidentiality of Alcohol and Drug Abuse Patient Records regulations: The Federal rules restrict any use of the information to criminally investigate or prosecute any alcohol or drug abuse patient.[facility]bleIn the event this information is protected by the Federal Confidentiality of Alcohol and Drug Abuse Patient Records regulations: The Federal rules restrict any use of the information to criminally investigate or prosecute any alcohol or drug abuse patient.[facility]bleIn the event this information is protected by the Federal Confidentiality of Alcohol and Drug Abuse Patient Records regulations: The Federal rules restrict any use of the information to criminally investigate or prosecute any alcohol or drug abuse patient.[facility]bleIn the event this information is protected by the Federal Confidentiality of Alcohol and Drug Abuse Patient Records regulations: The Federal rules restrict any use of the information to criminally investigate or prosecute any alcohol or drug abuse patient.[facility]bleIn the event this information is protected by the Federal Confidentiality of Alcohol and Drug Abuse Patient Records regulations: The Federal rules restrict any use of the information to criminally investigate or prosecute any alcohol or drug abuse patient.[facility]bleIn the event this information is protected by the Federal Confidentiality of Alcohol and Drug Abuse Patient Records regulations: The Federal rules restrict any use of the information to criminally investigate or prosecute any alcohol or drug abuse patient.[facility]bleIn the event this information is protected by the Federal Confidentiality of Alcohol and Drug Abuse Patient Records regulations: The Federal rules restrict any use of the information to criminally investigate or prosecute any alcohol or drug abuse patient.[facility]bleIn the event this information is protected by the Federal Confidentiality of Alcohol and Drug Abuse Patient Records regulations: The Federal rules restrict any use of the information to criminally investigate or prosecute any alcohol or drug abuse patient.[facility] FOR RECORDS PERTAINING TO PATIENTS WHO ARE OR HAVE BEEN ENROLLED IN A CHEMICAL DEPENDENCY/SUBSTANCEABUSE PROGRAM, SOME INFORMATION MAY BE OMITTED. This clinical summary was aggregated from multiple sources. Caution should be exercised in using it in the provision of clinical care. This summary normalizes information from multiple sources, and as a consequence, information in this document may materially change the coding, format and clinical context of patient data. In addition, data may be omitted in some cases. CLINICAL DECISIONS SHOULD BE BASED ON THE PRIMARY CLINICAL RECORDS. [facility] [employer] Art [employer] [facility]. provides no warranty or guarantee of the accuracy or completeness of information in this document.
--- OUTSIDE RECORDS SUMMARY | 2023-12-27 22:31 | XMS RPT_ITS | CCD ---
Author Name Unknown Address [address] [place] [address] Organization [facility] Care Team Providers Care Bander Name Role Phone Arnoldo Mancia Unavailable Unavailabl [...] Unavailable Devendra Chase MD Primary Care Provider [phone] Devendra Chase MD Primary Care Provider Devendra Chase MD Primary Care Provider ANTON BROWNING Attending Unavailable DEVENDRA CHASE Primary Care Unavailable ANTON BROWNING Attending Unavailable DEVENDRA CHASE Primary Care Unavailable ARCELIA MACIAS Attending [...] Attending Unavailable DEVENDRA CHASE Primary Care Unavailable [facility] Unavailable ARCELIA MACIAS Attending Unavailable OSBALDO BOWENRE Attending Unavail able [facility] Unavailable NEYHELENAT LAURA, FRANCESCO Referring Unavail able [facility] Unavailable NEYHELENAT SANCHEZ, FRANCESCO Referring Unavail able [facility] Unavailable [facility] Unavailable WISWELL, ARCELIA Referring Unavailable [facility] Unavailable MEKA BROWN Attending Unavailable [facility] Unavailable SHEILA ALEXANDER Attending Unavailable [facility] Unavailable NEYHART LAURA, FRANCESCO Attending Unavail able [facility] Unavailable WISWELL, ARCELIA Referring Unavailable WISWELL, ARCELIA Referring Unavailable [facility] Unavailable WISWELL, ARCELIA Referring Unavailable ANTON BROWNING Attending Unavailable [facility] Unavailable [facility] Unavailable MEKA BROWN Attending Unavailable NEYHELENAT LAURA, FRANCESCO Referring Unavail able [facility] Unavailable NEYHELENAT LAURA, FRANCESCO Referring Unavail able [facility] Unavailable [facility] Unavailable NEMICHELLE SANCHEZ, FRANCESCO Attending Unavail able [...] 85.55 kg Gabby Dill APRN.CNM Work Phone: [facility] 12-25-2023 10:27-0500 Diastolic blood pressure 64 mm[Hg] Gabby Dill APRN.CNM Work Phone: [facility] 12-25-2023 10:27-0500 Systolic blood pressure 110 mm[Hg] Gabby Dill APRN.CNM Work Phone: [facility] 12-17-2023 09:28-0500 Body weight 84.37 kg Arcelia Macias MD Work Phone: [facility] 12-17-2023 09:28-0500 Diastolic blood pressure 64 mm[Hg] Arcelia Macias MD Work Phone: [facility] 12-17-2023 09:28-0500 Systolic blood pressure 118 mm[Hg] Arcelia Macias MD Work Phone: [facility] 10-12-2023 09:41-0500 Body weight 78.02 kg Francesco Sanchez MD Work Phone: [facility] 10-12-2023 09:41-0500 Diastolic blood pressure 60 mm[Hg] Francesco Sanchez MD Work Phone: [facility] 10-12-2023 09:41-0500 Systolic blood pressure 112 mm[Hg] Francesco Sanchez MD Work Phone: [facility] 09-17-2023 15:21-0500 Body weight 74.84 kg Sheilachapo Hernandezankit DIRECTOR HUMAN SERVICES.MACHINE MADE SHOE UNIT WORKER Work Phone: [facility] 09-17-2023 15:21-0500 Diastolic blood pressure 68 mm[Hg] Sheila Haury DIRECTOR HUMAN SERVICES.MACHINE MADE SHOE UNIT WORKER Work Phone: [facility] 09-17-2023 15:21-0500 Systolic blood pressure 118 mm[Hg] Sheila Haury DIRECTOR HUMAN SERVICES.MACHINE MADE SHOE UNIT WORKER Work Phone: [facility] 06-25-2023 15:33-0400 Body weight 66.68 kg Anton Browning MD Work Phone: [facility] 06-25-2023 15:33-0400 Diastolic blood pressure 60 mm[Hg] Anton Browning MD Work Phone: [facility] 06-25-2023 15:33-0400 Systolic blood pressure 104 mm[Hg] Anton Browning MD Work Phone: [facility] 05-15-2023 15:21-0400 Body height 175.3 cm Ob Ultrasound Work Phone: [facility] 05-15-2023 15:21-0400 Body weight 64.86 kg Ob Ultrasound Work Phone: [facility] 11-26-2022 12:00-0500 Diastolic blood pressure 72 mm[Hg] Francesco Sanchez MD Work Phone: [facility] 11-26-2022 12:00-0500 Respiratory rate 113 /min Francesco Sanchez MD Work Phone: [facility] 11-26-2022 12:00-0500 Systolic blood pressure 110 mm[Hg] Francesco Sanchez MD Work Phone: [facility] 11-26-2022 11:13-0500 Body weight 65.32 kg Francesco Sanchez MD Work Phone: [facility] 11-19-2022 09:06-0500 Diastolic blood pressure 72 mm[Hg] Francesco Sanchez MD Work Phone: [facility] 11-19-2022 09:06-0500 Systolic blood pressure 116 mm[Hg] Francesco Sanchez MD Work Phone: [facility] 05-23-2022 15:10-0400 Body height 177.8 cm Lydia LEYVA Work Phone: [facility] Encounters Encounter Date Encounter Type Care Provider Facility Start: 12-25-2023 End: 12-25-2023 ambulatory FRANCESCO SANCHEZ Facility:[facility] Start: 12-25-2023 End: 12-25-2023 Patient encounter procedure [...] Author Start: 2038 PAP TESTING PAP TESTING [facility] Start: 10-26-2033 Urine microalbumin profile DTaP,Tdap,Td Vaccine (9 - Td or Tdap) [facility] Start: 10-23-2030 Tetanus vaccination TETANUS [facility] Start: 10-23-2030 Urine microalbumin profile [facility] Start: 02-19-2024 PAP TESTING PAP TESTING [facility] Start: 02-19-2024 Screening for malignant neoplasm of cervix Pap Testing [facility] Start: 11-09-2023 Depression Assessment Depression Assessment [facility] Start: 11-05-2023 RSV Vaccine (1 - Risk 1-dose series) RSV Vaccine (1 - Risk 1-dose series) [facility] Start: 09-17-2023 End: 12-17-2023 CBC W Auto Differential panel - Blood CBC + DIFF Lab Routine Encounter for supervision of other normal in second trimester 25 weeks gestation of Expected: 09/17/2023, Expires: 12/17/2023 [facility] Work Phone: Immunizations Immunization Date Immunization Notes Care Provider Theodore jaeger 10-26-2023 tetanus toxoid, redu ronal diphtheria toxoid, and acellular pertussis vaccine, adsorbed Arcelia Macias MD Work Phone: [facility] 10-23-2020 tetanus toxoid, redu ronal diphtheria toxoid, and acellular pertussis vaccine, adsorbed Francesco Sanchez MD Work Phone: [facility] 08-07-2020 influenza, injectabl e, quadrivalent, contains preservative Francesco Sanchez MD Work Phone: [facility] 08-07-2020 influenza virus vaccine, unspecified formulation [place] [facility] Payers Date Payer Category Payer Unknown [id number] 2022 Private Health Insurance [id number] 2022 Private Health Insurance [id number] 2022 Unknown [id number] 2019 Unknown MMO MED MUTUAL S UPERMED PPO xxxxxxxxxxxx 2019-Present xxxxxxxxxxxx [id number] 2019 Unknown [id number] 2018 Unknown 1996 Unknown [id number] 1996 Unknown [id number] 1996 Unknown [id number] Social History Date Type Detail Facility Start: 03-24-2020 End: 11-19-2022 Tobacco smoking status NHIS Never smoker [facility] Work Phone: Start: 03-24-2020 Alcohol intake Current drinker of alcohol (finding) [facility] Start: 03-24-2020 History SDOH Alcohol Frequency 3 [facility] Start: 03-24-2020 End: 05-31-2020 History SDOH Alcohol Std Drinks 1 [facility] Start: 03-24-2020 Alcohol Comment socially [facility] Start: 1995 Sex Assigned At Not on file [facility] Exposure to SARS-CoV -2 (event) Yes [facility] Tobacco smoking stat us MOIS Tobacco smoking consumption unknown [facility] Start: 02-19-2015 End: 11-19-2022 Tobacco use and exposure Smokeless tobacco non-user [facility] Work Phone: Start: 02-13-2021 End: 12-25-2023 Alcohol intake Current non-drinker of alcohol (finding) [facility] Start: 05-31-2020 History SDOH Financial 5 [facility] Start: 05-31-2020 History SDOH Transport Med 2 [facility] Start: 05-31-2020 Education 16 [facility] Start: 04-16-2020 Gender identity Identifies as female gender (finding) [facility] Start: 04-16-2020 Sexual orientation Heterosexual (finding) [facility] Start: 04-09-2023 [facility] Start: 05-31-2020 End: 05-14-2023 History of Social function [facility] Work Phone: Start: 05-31-2020 End: 05-14-2023 Tobacco use panel [facility] Work Phone: National Score (1-10 0), lower number is lower risk 72 [facility] Work Phone: (I/We) worried wheth er (my/our) food would run out before (I/we) got money to buy more. Never true [facility] Work Phone: Goals Date Patient Goal Desired [...] Gabby Dill APRN.CNM documented in this encounter [facility] 12-25-2023 Instructions Yolis Vu LPN - 12/25/2023 10:28 AM EST SEQUENTIAL SCREENINGS The [facility] offers sequential screenings for women who are [...] It will require an appointment with our sound engineering technician. This is not an ultrasound performed [...] the above symptoms, contact our office at [phone] and ask to speak with a nurse. After hours, you can call doctors registry at [phone] OR call [facility] at [phone] and ask to have the doctor purchasing contracting clerk paged. If you consider this an emergency, dial 9-1-1 or go to your nearest emergency department. NEED HELP? Are you dealing with a violent or abusive relationship? Are you a victim of rape or sexual assult? Call [facility] ([place]) 24 hour Crisis Hotline: 881.129.3017 or 150-052-0974. MANUAL Your Guide to a Healthy manual is now on-line. Visit [email or web address] to download your free copy documented in this encounter [facility] 12-17-2023 Miscellaneous Notes Formattin g of this note might be different from the original. SW- Pt doing well. No ctx, vb, lof. Good FM PE: Gen- NAD, well appearing Abd- Soft, gravid, NT, S=D Cvx 50/-3, posterior See flowsheet A/p 38 wk gestation - Labor precautions reviewed - Desires ~40 week induction Arcelia Macias DO documented in this encounter [facility] 12-17-2023 Instructions Vane Weinstein Ma - 12/17/2023 9:27 AM EST SEQUENTIAL SCREENINGS The [facility] offers sequential screenings for women who are [...] It will require an appointment with our sound engineering technician. This is not an ultrasound performed [...] the above symptoms, contact our office at [phone] and ask to speak with a nurse. After hours, you can call doctors registry at [phone] OR call [facility] at [phone] and ask to have the doctor purchasing contracting clerk paged. If you consider this an emergency, dial 9-1-1 or go to your nearest emergency department. NEED HELP? Are you dealing with a violent or abusive relationship? Are you a victim of rape or sexual assult? Call [facility] ([place]) 24 hour Crisis Hotline: 126.132.3285 or 753-030-3106. MANUAL Your Guide to a Healthy manual is now on-line. Visit [email or web address] to download your free copy documented in this encounter [facility] 12-11-2023 Note HNO ID: [id number] Author: MEKA BROWN MD Service: ? Author [...] I and Reactive SIGNATURE: Meka Brown MD [facility] 10-26-2023 Note HNO ID: [id number] Author: Joe Knox Cma Service: ? Author [...] severely ill: Yes Patient denies history of Guillain-[place] Syndrome (a severe paralytic illness): Yes Tdap Adacel injection was given without incident. See immunizations for details of immunizations administered today. VIS sheet provided: Yes Provider Francesco Sanchez MD was present in office at time of injection. Joe Knox Cma [facility] 10-12-2023 Miscellaneous Notes Formattin g of this note might be different from the original. DM- Pt doing well today. Denies Vaginal Bleeding, Leaking fluid, or contractions. Pt reports good movement. Considering Tdap. Heartburn- pepcid not helping as much- will try omperazole. 28 week labs today. Possible tdap next visit. LARC declined- planning vasectomy. documented in this encounter [facility] 10-12-2023 Instructions Vane Weinstein Ma 10/12/2023 9:40 AM EST SEQUENTIAL SCREENINGS The [facility] offers sequential screenings for women who are [...] It will require an appointment with our sound engineering technician. This is not an ultrasound performed [...] the above symptoms, contact our office at [phone] and ask to speak with a nurse. After hours, you can call doctors registry at [phone] OR call [facility] at [phone] and ask to have the doctor purchasing contracting clerk paged. If you consider this an emergency, dial 07-10- or go to your nearest emergency department. NEED HELP? Are you dealing with a violent or abusive relationship? Are you a victim of rape or sexual assult? Call [facility] ([facility] 24 hour Crisis Hotline: 655.109.6930 or 462-415-0150. MANUAL Your Guide to a Healthy manual is now on-line. Visit [email or web address] [email or web address] to download your free copy documented in this encounter [facility] 09-17-2023 Miscellaneous Notes Formattin g of this [...] - 4.5 hours of pushing Sheila Alexander APRN.MACHINE MADE SHOE UNIT WORKER documented in this encounter [facility] 09-17-2023 Fiona Cox Ma - 09/17/2023 3:15 PM EST SEQUENTIAL SCREENINGS The [facility] offers sequential screenings for women who are [...] It will require an appointment with our sound engineering technician. This is not an ultrasound performed [...] the above symptoms, contact our office at [phone] and ask to speak with a nurse. After hours, you can call doctors registry at [phone] OR call [facility] at [phone] and ask to have the doctor purchasing contracting clerk paged. If you consider this an emergency, dial 9-1-8 or go to your nearest emergency department. NEED HELP? Are you dealing with a violent or abusive relationship? Are you a victim of rape or sexual assult? Call [facility] ([place]) 24 hour Crisis Hotline: 472.684.9234 or 752-495-5567. MANUAL Your Guide to a Healthy manual is now on-line. Visit [email or web address] [email or web address] to download your free copy documented in this encounter [facility] 07-21-2023 Miscellaneous Notes Formattin g of this note might be different from the original. See PrivacyCentralhart message. Form signed. documented in this encounter [facility] 06-25-2023 Note HNO ID: [id number] Author: Inessa Hernandes LPN Service: ? Author Type: ? Type: Progress Notes Filed: 06/25/2023 3:49 PM Note Text: Patient here for First Trimester Screening. See ultrasound report for details. Options for genetic screening and diagnosis discussed with the patient. Patient opts for first trimester screening and the sequential screening protocol. Limitations of screening tests discussed with the patient. Anton Browning MD [facility] 06-25-2023 Miscellaneous Notes Formattin g of this note might be different from the original. KJ - No VB/LOF/ctxs. A&P: NT today - prelim read shows 2 cm hematoma. Patient had brown spotting 2 weeks ago but denies anything since then. Declines sequential screen or NIPT Scheduled anatomy US Anton Browning MD documented in this encounter [facility] 06-25-2023 History of Presen t illness Narrative Patient here for First Trimester Screening. See ultrasound report for details. Options for genetic screening and diagnosis discussed with the patient. Patient opts for first trimester screening and the sequential screening protocol. Limitations of screening tests discussed with the patient. Anton Browning MD documented in this encounter [facility] 06-25-2023 Instructions Fiona Rendon Ma - 06/25/2023 3:30 PM EDT SEQUENTIAL TESTING PROCESS Sequential Screen First Trimester Today you are currently: 13w0d weeks 06/25/2023: Ultrasound and blood test. Sequential Screen Second Trimester (16-17 Weeks Gestation) When you are called with your results, the nurse will give the optimal draw dates for the Sequential screen second trimester. Blood testing can be done at any [facility] lab. Please report to the any core placer office front loader residential driver for the Sequential Part 2 requisition and [...] medicine office, for east side please call [phone] or for the West side call [phone] and ask for the the nurse. Thank you. SEQUENTIAL SCREENINGS The [facility] offers sequential screenings for women who are [...] It will require an appointment with our sound engineering technician. This is not an ultrasound performed [...] the above symptoms, contact our office at [phone] and ask to speak with a nurse. After hours, you can call doctors registry at [phone] OR call [facility] at [phone] and ask to have the doctor purchasing contracting clerk paged. If you consider this an emergency, dial 9-1-1 or go to your nearest emergency department. NEED HELP? Are you dealing with a violent or abusive relationship? Are you a victim of rape or sexual assult? Call [facility] ([facility] 24 hour Crisis Hotline: 254.128.5482 or 058-691-1288. MANUAL Your Guide to a Healthy manual is now on-line. Visit [email or web address] [email or web address] to download your free copy documented in this encounter [facility] 06-10-2023 Miscellaneous Notes Formattin g of this note might be different from the original. Ob patient is 10w6d and reports that spotting has not worsened. Patient only noticed the brownish spotting when vaginal progesterone was seeping out in the morning. Call and see how she is feeling today. Make sure bleeding not worse. documented in this encounter [facility] 06-03-2023 Miscellaneous Notes Formattin g of this [...] Brittani Casillas RN documented in this encounter [facility] 06-01-2023 Note HNO ID: [id number] Author: Arcelia Macias MD Service: ? Author Type: Physician Type: Progress Notes Filed: 06/01/2023 12:42 PM Note Text: Charging Operator offered: Patient declines. INITIAL OB ASSESSMENT OB [...] use: No Multivitamin with Folic acid: Yes Zoroastrian or heritage: No Would refuse blood transfusion if medically necessary: No Are you currently employed? 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 Do you have any history of depression, [...] Status: Partner: Name: Levar Age: 27 Occupation: [employer] Gender: Male History of STDs: None PAST MEDICAL HISTORY Diagnosis Date Anemia Migraines Miscarriage Staph infection 2004 right finger-hospitalized for 5 days PAST SURGICAL HISTORY Procedure Laterality Date APPENDECTOMY HX PAST SURGICAL HISTORY OF Right right 2nd finger-staph infection TOOTH EXTRACTION [place] teeth [facility] (OFFICE [facility]) Current Outpatient Medications Medication Sig Dispense Refill Jllpsbej-Ax-Xvs-Fe-FA ( VITAMIN) tab Take 1 tablet by [...] lesions, non-icteric, an (more content not included)... [facility] 05-14-2023 Note HNO ID: [id number] Author: Caridad Adma RN Service: ? Author Type: ? Type: [...] None, Apgar5: None, Living: None, Comments: None [facility] 05-14-2023 Miscellaneous Notes Formattin g of this [...] coverage.Caridad Adam RN documented in this encounter [facility] 05-14-2023 History of Presen t illness Narrative [...] None, Comments: None documented in this encounter [facility] 05-11-2023 Telephone encount er Note Images from the original note were not included. CoverMyMeds ? Checked for previous INSURANCE encounter Current PA expires 05/23/2023 ?Checked med list or last office note, pt is currently taking medication ?Checked prescribing provider [facility] 05-11-2023 Miscellaneous Notes Formattin g of this note is different from the original. Images from the original note were not included. CoverMyMeds ? Checked for previous INSURANCE encounter Current PA expires 05/23/2023 ?Checked med list or last office note, pt is currently taking medication ?Checked prescribing provider documented in this encounter [facility] 03-20-2023 Miscellaneous Notes Formattin g of this note might be different from the original. Appointments scheduled. Leann Leslie RN Yea I would say 7 weeks would be fine unless she has any bleeding. Do you need her to have a dating/viability US? documented in this encounter [facility] 11-26-2022 History of Presen t illness Narrative [...] L1 SAB0 IAB0 Ectopic0 Multiple0 Live Births1 Automatic Data Processing Planner History LMP: 10/09/2022, Unknown Age at Menarche: Age at First : Age at Menopause: Automatic Data Processing Planner History Comments: Sexual Activity: Not Asked; Male; not asked Contraception: Condom PAST MEDICAL HISTORY Diagnosis Date Anemia Migraines PAST SURGICAL HISTORY Procedure Laterality Date APPENDECTOMY HX TOOTH EXTRACTION [place] teeth FAMILY HISTORY Problem Relation Age of [...] Take 50 mg by mouth as needed. Jomehjdo-Iw-Vrv-Fe-FA ( VITAMIN) tab Take 1 tablet by [...] external genitalia normal, normal Bartholin's glands, urethra, Willoughby's glands, no vulvar lesions, no cervical lesions, [...] Francesco Matos MD documented in this encounter [facility] 11-24-2022 Miscellaneous Notes Formattin g of this [...] Leann Leslie RN documented in this encounter [facility] 11-19-2022 History of Presen t illness Narrative [...] L1 SAB0 IAB0 Ectopic0 Multiple0 Live Births1 Automatic Data Processing Planner History LMP: 04/12/2020, Unknown Age at Menarche: Age at First : Age at Menopause: Automatic Data Processing Planner History Comments: Sexual Activity: Not Asked; Male; not asked Contraception: Condom PAST MEDICAL HISTORY Diagnosis Date Anemia Migraines PAST SURGICAL HISTORY Procedure Laterality Date APPENDECTOMY HX TOOTH EXTRACTION [place] teeth FAMILY HISTORY Problem Relation Age of [...] Take 50 mg by mouth as needed. Utbeitpo-Fz-Gqc-Fe-FA ( VITAMIN) tab Take 1 tablet by [...] Francesco Matos MD documented in this encounter [facility] 11-17-2022 Miscellaneous Notes Formattin g of this note might be different from the original. Patient notified. Dating US scheduled on 11/19/22. Brittani Casillsa RN Recommend call us or to ED [...] to: self Call patient at: on cell [phone] (home) [phone] (cell) Payor: [employer]ET[employer] / Plan: [employer]ET[employer] OPEN ACCESS [employer] SELECT / Product Type: TAT[employer] / [employer] [employer] [facility] Rep documented in this encounter [facility] 05-23-2022 Instructions AUTUMN Leahy - 05/23/2022 3:37 PM EDT -Continue ubrelvy PRN for migraine -Continue botox documented in this encounter [facility] 05-23-2022 History of Presen t illness Narrative [facility] Department of Neurology Headache Division Follow-up Visit [...] of Neurology Headache Division/Interventional Pain Division [facility] Total time in minutes spent with patient, reviewing records, imaging, labs: 7 with more than 50% of the time spent in patient education/counselling/coordina ting care with the patient and /or family. cc: Devendra Chase [address] [place] [address] [place] [address] CC: migraine HPI: The patient was seen [...] content unremarkable. Follows commands appropriately. Speech fluent. 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 No pronator drift. Sensation intact to light touch. Laawdv-tn-znho testing absent for ataxia. Stable primary gait. Normal tandem walking. Migraine Disability Assessment Test (MIDAS) score: 7 documented in this encounter [facility] 05-23-2022 Telephone encount er Note Medication Access Team coordinated the following[facility]: [place]/Neurology Prior Authorization Per the patient's insurance provider, [facility], the prior authorization for Ubrelvy (on-label) was approved. Authorization number: [id number] Authorization start date: 04/23/2022 Authorization end date: 05/23/2023 Non-Oncology Specialty Prescriptions: 1, 25-30 min Luis Angel Fuentes [facility] 05-23-2022 Miscellaneous Notes Formattin g of this note might be different from the original. Medication Access Team coordinated the following: [facility] PAC Clinics: MS/Neurology Prior Authorization Per the patient's insurance provider, Christy, the prior authorization for Ubrelvy (on-label) was approved. Authorization number: [id number] Authorization start date: 04/23/2022 Authorization end date: 05/23/2023 Non-Oncology Specialty Prescriptions: 1, 25-30 min Luis Angel Fuentes Images from the original note were not included. CoverMyMeds ? Checked for previous INSURANCE encounter Current auth expires 05/22/2022 ?Checked med list or last office note, pt is currently taking medication ?Checked prescribing provider documented in this encounter [facility] 05-09-2022 Telephone encount er Note Images from the original note were not included. CoverMyMeds ? Checked for previous INSURANCE encounter Current auth expires 05/22/2022 ?Checked med list or last office note, pt is currently taking medication ?Checked prescribing provider [facility] documented as of this encounter (statuses as of 11/17/2022) [facility]-18[facility]2021 History of Past illness Narrative* Problem Noted Date Resolved Date COVID-19 affecting in third trimester 12/27/2020 02/18/2021 Encounter for supervision of normal in first trimester 06/12/2020 02/18/2021 documented as of this encounter (statuses as of 11/19/2022) [facility]21 History of Past illness Narrative* Problem Noted Date Resolved Date COVID-19 affecting in third trimester 12/27/2020 02/18/2021 Encounter for supervision of normal in first trimester 06/12/2020 02/18/2021 documented as of this encounter (statuses as of 11/20/2022) [facility]21 History of Past illness Narrative* Problem Noted Date Resolved Date COVID-19 affecting in third trimester 12/27/2020 02/18/2021 Encounter for supervision of normal in first trimester 06/12/2020 02/18/2021 documented as of this encounter (statuses as of 11/24/2022) [address]18-2021 History of Past illness Narrative* Problem Noted Date Resolved Date COVID-19 affecting in third trimester 12/27/2020 02/18/2021 Encounter for supervision of normal in first trimester 06/12/2020 02/18/2021 documented as of this encounter (statuses as of 11/27/2022) [address]18-2021 History of Past illness Narrative* Problem Noted Date Resolved Date COVID-19 affecting in third trimester 12/27/2020 02/18/2021 Encounter for supervision of normal in first trimester 06/12/2020 02/18/2021 documented as of this encounter (statuses as of 11/27/2022) [address]18-2021 History of Past illness Narrative* Problem Noted Date Resolved Date COVID-19 affecting in third trimester 12/27/2020 02/18/2021 Encounter for supervision of normal in first trimester 06/12/2020 02/18/2021 documented as of this encounter (statuses as of 12/17/2022) [address]18-2021 History of Past illness Narrative* Problem Noted Date Resolved Date COVID-19 affecting in third trimester 12/27/2020 02/18/2021 Encounter for supervision of normal in first trimester 06/12/2020 02/18/2021 documented as of this encounter (statuses as of 03/20/2023) [address]18-2021 History of Past illness Narrative* Problem Noted Date Resolved Date COVID-19 affecting in third trimester 12/27/2020 02/18/2021 Encounter for supervision of normal in first trimester 06/12/2020 02/18/2021 documented as of this encounter (statuses as of 05/15/2023) [address]18-2021 History of Past illness Narrative* Problem Noted Date Diagnosed Date Resolved Date COVID-19 affecting in third trimester 12/27/2020 02/18/2021 Encounter for supervision of normal in first trimester 06/12/2020 02/18/2021 documented as of this encounter (statuses as of 05/16/2023) [address]18-2021 History of Past illness Narrative* Problem Noted Date Diagnosed Date Resolved Date COVID-19 affecting in third trimester 12/27/2020 02/18/2021 Encounter for supervision of normal in first trimester 06/12/2020 02/18/2021 documented as of this encounter (statuses as of 05/18/2023) [address]18-2021 History of Past illness Narrative* Problem Noted Date Diagnosed Date Resolved Date COVID-19 affecting in third trimester 12/27/2020 02/18/2021 Encounter for supervision of normal in first trimester 06/12/2020 02/18/2021 documented as of this encounter (statuses as of 06/04/2023) [address]18-2021 History of Past illness Narrative* Problem Noted Date Diagnosed Date Resolved Date COVID-19 affecting in third trimester 12/27/2020 02/18/2021 Encounter for supervision of normal in first trimester 06/12/2020 02/18/2021 documented as of this encounter (statuses as of 06/11/2023) [address]18-2021 History of Past illness Narrative* Problem Noted Date Diagnosed Date Resolved Date COVID-19 affecting in third trimester 12/27/2020 02/18/2021 Encounter for supervision of normal in first trimester 06/12/2020 02/18/2021 documented as of this encounter (statuses as of 06/26/2023) [address]18-2021 History of Past illness Narrative* Problem Noted Date Diagnosed Date Resolved Date COVID-19 affecting in third trimester 12/27/2020 02/18/2021 Encounter for supervision of normal in first trimester 06/12/2020 02/18/2021 documented as of this encounter (statuses as of 06/26/2023) [address]18-2021 History of Past illness Narrative* Problem Noted Date Diagnosed Date Resolved Date COVID-19 affecting in third trimester 12/27/2020 02/18/2021 Encounter for supervision of normal in first trimester 06/12/2020 02/18/2021 documented as of this encounter (statuses as of 07/09/2023) [address]18-2021 History of Past illness Narrative* Problem Noted Date Diagnosed Date Resolved Date COVID-19 affecting in third trimester 12/27/2020 02/18/2021 Encounter for supervision of normal in first trimester 06/12/2020 02/18/2021 documented as of this encounter (statuses as of 07/21/2023) [address]18-2021 History of Past illness Narrative* Problem Noted Date Diagnosed Date Resolved Date COVID-19 affecting in third trimester 12/27/2020 02/18/2021 Myopia - Both Eyes 02/19/2015 3 Regular astigmatism - Both Eyes 02/19/2015 08/17/2023 documented as of this encounter (statuses as of 08/18/2023) [address]18-2021 History of Past illness Narrative* Problem Noted Date Diagnosed Date Resolved Date COVID-19 affecting in third trimester 12/27/2020 02/18/2021 Myopia - Both Eyes 02/19/2015 3 Regular astigmatism - Both Eyes 02/19/2015 08/17/2023 documented as of this encounter (statuses as of 09/18/2023) [address]18-2021 History of Past illness Narrative* Problem Noted Date Diagnosed Date Resolved Date COVID-19 affecting in third trimester 12/27/2020 02/18/2021 Myopia - Both Eyes 02/19/2015 3 Regular astigmatism - Both Eyes 02/19/2015 08/17/2023 documented as of this encounter (statuses as of 09/22/2023) [address]18-2021 History of Past illness Narrative* Problem Noted Date Diagnosed Date Resolved Date COVID-19 affecting in third trimester 12/27/2020 02/18/2021 Myopia - Both Eyes 02/19/2015 3 Regular astigmatism - Both Eyes 02/19/2015 08/17/2023 documented as of this encounter (statuses as of 10/12/2023) [address]18-2021 History of Past illness Narrative* Problem Noted Date Diagnosed Date Resolved Date COVID-19 affecting in third trimester 12/27/2020 02/18/2021 Myopia - Both Eyes 02/19/2015 3 Regular astigmatism - Both Eyes 02/19/2015 08/17/2023 documented as of this encounter (statuses as of 12/17/2023) [facility] History of Past illness Narrative* Problem Noted Date Diagnosed Date Resolved Date COVID-19 affecting in third trimester 12/27/2020 02/18/2021 Myopia - Both Eyes 02/19/2015 3 Regular astigmatism - Both Eyes 02/19/2015 08/17/2023 documented as of this encounter (statuses as of 12/25/2023) [facility]* Diagnosis Migraine with aura and without status migrainosus, not intractable- Primary Migraine with aura, without mention of intractable migraine without mention of status migrainosus [facility] Threatened - Primary Threatened , unspecified as to episode of care documented [facility] this [facility]* Diagnosis Bleeding in early - Primary Unspecified hemorrhage in early , unspecified as to episode of care Threatened Threatened , unspecified as to episode of care [facility]* Diagnosis Bleeding in early - Primary Unspecified hemorrhage in early , unspecified as to episode of care [facility] Diagnosis Bleeding in early - Primary Unspecified hemorrhage in early , unspecified as to episode of care [facility] Diagnosis Incomplete spontaneous without complication- Primary Incomplete spontaneous without mention of complication [facility]* Diagnosis Threatened Threatened , unspecified as to episode of care [facility] Diagnosis Previous recurrent miscarriages affecting , antepartum- Primary [facility] Diagnosis with uncertain dates in first trimester- Primary Bleeding in early Unspecified hemorrhage in early , unspecified as to episode of care [facility] Diagnosis Dysuria- Primary [facility]* Diagnosis Encounter for screening of mother- Primary Unspecified screening 13 weeks gestation of state, incidental [facility] Encounter for (NT) nuchal translucency scan- Primary Other specified screening 13 weeks gestation of state, incidental documented in this encounter [facility] note* Diagnosis Encounter for anatomic survey- Primary 20 weeks gestation of state, incidental documented in this encounter [facility]* Diagnosis Encounter for supervision of other normal in second trimester- Primary 25 weeks gestation of state, incidental due to History of vacuum extraction assisted delivery Other postprocedural status History of episiotomy documented in this encounter [facility] note* Diagnosis Previous recurrent miscarriages affecting , antepartum- Primary Encounter for supervision of other normal in third trimester 28 weeks gestation of state, incidental [facility] this encounter [facility]* Diagnosis 38 weeks gestation of - Primary state, incidental documented in this encounter [facility]* Diagnosis Encounter for supervision of other normal in third trimester- Primary 39 weeks gestation of state, incidental documented in this encounter [facility] for referral (narrative)* Diagnostic Procedure Only (Routine) - Authorized Specialty Diagnoses / Procedures Referred By Tonia t Referred To Contact [facility] Diagnoses Threatened Procedures OBSTETRIC ULTRASOUND WHI US PREG UTERUS AFTER 1ST TRIMEST GESTATION Meka Brown MD [address] [place] [address] [address] Referral ID Status Reason Start Date Expiration Date Visits Requested Visits Authorized [id number] Authorized Auto-Generat ed Referral 11/17/2022 11/17/2023 1 1 [facility] for referral (narrative)* Diagnostic Procedure Only (Routine) - Authorized Specialty Diagnoses / Procedures Referred By Contac t Referred To Contact [facility] Diagnoses Bleeding in early Procedures OBSTETRIC ULTRASOUND WHI US PREG UTERUS AFTER 1ST TRIMEST GESTATION Francesco Bowen MD [address] [place] [address] [facility] [address] [place] [address] Referral ID Status Reason Start Date Expiration Date Visits Requested Visits Authorized [id number] Authorized Auto-Generat ed Referral 11/19/2022 11/19/2023 1 1 [facility] Diagnostic Procedure Only (Routine) - Closed Specialty Diagnoses / Procedures Referred By Tonia donovan Referred To Contact [facility] Diagnoses Threatened Procedures OBSTETRIC ULTRASOUND WHI US PREG UTERUS AFTER 1ST TRIMEST GESTATION Meka Brown MD [address] 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 Don't share personal household items. These include bedding, towels, cups and glasses, and eating utensils. Clean and disinfect your home every day. Use household pneumatic drum sander or disinfectant wipes or sprays. Take special care to clean things that you grab with your hands. These include doorknobs, remote controls, phones, and handles on your refrigerator and microwave. And don't forget countertops, tabletops, bathrooms, and computer keyboards. Current as of: March 02, 2020 Content Version: 12.4 [employer]. Care instructions adapted under license by your healthcare professional. If you have questions about a medical condition or this instruction, always ask your healthcare professional. [employer] disclaims any warranty or liability for your use of this information. documented in this encounter History of Present Illness * Mellisa Fritz MD - 03/24/2020 9:59 AM EDT Patient Name: [facility] Location: Sarah Campuzano [address] [place] [id number] Date Of : Date Of Visit: 1995 03/24/2020 MRN# Provider: [id number] Mellisa Fritz MD Chief Complaint Patient presents with Cough Cough, vomiting, headache since last night. Works at [employer] with 9 positive covid Assessment & Plan [...] vomiting, headache since last night. Works at [employer] with 9 positive covid ) Past 2 [...] file Gets together: Not on file Attends jew service: Not on file Active member of [...] water aren't available, use an alcohol-based hand victims advocate clerk/specialist. Don't share personal household items. These include bedding, towels, cups and glasses, and eating utensils. Clean and disinfect your home every day. Use household pneumatic drum sander or disinfectant wipes or sprays. Take special care to clean things that you grab with your hands. These include doorknobs, remote controls, phones, and handles on your refrigerator and microwave. And don't forget countertops, tabletops, bathrooms, and computer keyboards. Current as of: March 02, 2020 Content Version: 12.4 [employer]. Care instructions adapted under license by your healthcare professional. If you have questions about a medical condition or this instruction, always ask your healthcare professional. [employer], [employer] disclaims any warranty or liability for your [...] Date Diagnosed Date [facility] - [facility] 06/01/2023 Education - [place] 06/01/2023 Problem Noted Date Diagnosed Date [facility] - [facility] 06/01/2023 Education - [place] 06/01/2023 Problem Noted Date Diagnosed Date [facility] - [facility] 06/01/2023 Education - [place] 06/01/2023 Problem Noted Date Diagnosed Date [facility] - [facility] 06/01/2023 Education - [place] 06/01/2023 Problem Noted Date Diagnosed Date [facility] - [facility] 06/01/2023 Education - [place] 06/01/2023 Problem Noted Date Diagnosed Date [facility] - [facility] 06/01/2023 Education - [place] 06/01/2023 Problem Noted Date Diagnosed Date [facility] - [facility] 06/01/2023 Education - [place] 06/01/2023 Problem Noted Date Diagnosed Date [facility] - [facility] 06/01/2023 Education - [place] 06/01/2023 Problem Noted Date Diagnosed Date [facility] - [facility] 06/01/2023 Education - [place] 06/01/2023 Problem Noted Date Diagnosed Date [facility] - [facility] 06/01/2023 Education - [place] 06/01/2023 Additional Source Comments INFORMATION SOURCE (unrecogn ized section and content) DATE CREATED AUTHOR AUTHOR'S ORGANIZ ATION 03/25/[address] [facility] DATE CREATED AUTHOR AUTHOR'S ORGANIZ ATION 03/25/2020 [facility] DATE CREATED AUTHOR AUTHOR'S ORGANIZ ATION 07/19/2022 [facility] DATE CREATED AUTHOR AUTHOR'S ORGANIZ ATION 12/27/2023 [facility] Reason for Visit (unrecogniz ed section and content) Reason Onset Date Comments Insurance 05/09/2022 Ubrelvy 50 Reason Comments Follow-up Reason Onset Date Comments Early OB pain 11/17/2022 Reason Comments Follow Up Reason Comments [employer]PER[employer]CRE[employer] Ultrasound Reason Comments Follow Up Reason Onset Date Comments Insurance 05/11/2023 Ubrelvy 50 Reason Comments Care Reason Comments US Specialty Diagnoses / Procedures Referred By Contac t Referred To Contact [facility] Diagnoses Bleeding in early Procedures OBSTETRIC ULTRASOUND WHI US PREG UTERUS AFTER 1ST TRIMEST GESTATION Francesco Bowen MD [address] [place] [address] [address] [place] [address] Referral ID Status Reason Start Date Expiration Date V isits Requested Visits Authorized [id number] Closed Auto-Generate d Referral 11/19/2022 11/19/2023 1 1 Reason Comments OB UTI Symptoms Reason Onset Date Comments Care 06/25/2023 Specialty Diagnoses / Procedures Referred By Contac t Referred To Contact [facility] Diagnoses 9 weeks gestation of Procedures NUCHAL TRANSLUCENCY WHI US NUCHAL TRANSLUCENCY 1ST GESTATION Arcelia Macias MD [address] [place] [address] [facility] [address] [place] [address] Referral ID Status Reason Start Date Expiration Date V isits Requested Visits Authorized [id number] Closed Auto-Generate d Referral 06/09/2023 11/08/2023 1 1 Specialty Diagnoses / Procedures Referred By Contac t Referred To Contact [facility] Diagnoses 9 weeks gestation of Procedures OBSTETRIC ULTRASOUND WHI US PREG UTERUS AFTER 1ST TRIMEST GESTATION Arcelia Macias MD [address] [place] [address] [facility] [address] [place] [address] Referral ID Status Reason Start Date Expiration Date Visits Requested Visits Authorized [id number] Authorized Auto-Generat ed Referral 07/29/2023 11/08/2023 20 20 Reason Onset Date Comments Care 09/17/2023 Reason Onset Date Comments Care 10/12/2023 Reason Onset Date Comments Care 12/17/2023 Reason Onset Date Comments Care Care 12/25/2023 Care Teams (unrecognized sec tion and content) Bander Relationship Specialty Start Date End Date Devendra Chase MD [address] [place] [phone] PCP - General Family Medicine 01/24/20 Bander Relationship Specialty Start Date End Date Devendra Chase MD [address] [place] [phone] PCP - General Family Medicine 07/06/18 Bander Relationship Specialty Start Date End Date Devendra Chase MD [address] [place] [address] PCP - General Family Medicine 07/06/18 Bander Relationship Specialty Start Date End Date Devendra Chase MD [address] [place] [address] PCP - General Family Medicine 07/06/18 Bander Relationship Specialty Start Date End Date Devendra Chase MD [address] [place] [address] PCP - General Family Medicine 07/06/18 Bander Relationship Specialty Start Date End Date Devendra Chase MD [address] [place] [address] PCP - General Family Medicine 07/06/18 Bander Relationship Specialty Start Date End Date Devendra Chase MD [address] [place] [address] PCP - General Family Medicine 07/06/18 Bander Relationship Specialty Start Date End Date Devendra Chase MD [address] [place] [address] PCP - General Family Medicine 07/06/18 Bander Relationship Specialty Start Date End Date Devendra Chase MD [address] [place] [address] PCP - General Family Medicine 07/06/18 Bander Relationship Specialty Start Date End Date Devendra Chase MD [address] [place] [address] [place] [phone] PCP - General Family Medicine 01/24/20 Bander Relationship Specialty Start Date End Date Devendra Chase MD [address] [place] [address] [place] [address] PCP - General Family Medicine 07/06/18 Bander Relationship Specialty Start Date End Date Devendra Chase MD [address] [place] [address] [place] [address] PCP - General Family Medicine 07/06/18 Bander Relationship Specialty Start Date End Date Devendra hCase MD [address] [place] [address] [place] [address] PCP - General Family Medicine 07/06/18 Bander Relationship Specialty Start Date End Date Devendra Chase MD [address] [place] [address] [place] [address] PCP - General Family Medicine 07/06/18 Bander Relationship Specialty Start Date End Date Devendra Chase MD [address] [place] [address] PCP - General Family Medicine 07/06/18 Bander Relationship Specialty Start Date End Date Devendra Chase MD [address] [place] [address] PCP - General Family Medicine 07/06/18 Bander Relationship Specialty Start Date End Date Devendra Chase MD [address] [place] [address] PCP - General Family Medicine 07/06/18 Bander Relationship Specialty Start Date End Date Devendra Chase MD [address] [place] [address] PCP - General Family Medicine 07/06/18 Bander Relationship Specialty Start Date End Date Devendra Chase MD [address] [place] [address] PCP - General Family Medicine 07/06/18 Bander Relationship Specialty Start Date End Date Devendra Chase MD [address] [place] [address] PCP - General Family Medicine 07/06/18 Bander Relationship Specialty Start Date End Date Devendra Chase MD [address] [address] PCP - General Family Medicine 07/06/18 Bander Relationship Specialty Start Date End Date Devendra Chase MD [address] [place] [address] PCP - General Family Medicine 07/06/18 Source Comments (unrecognize d section and content) In the event this informatio n is protected by the Federal Confidentiality of Alcohol and Drug Abuse Patient Records regulations: The Federal rules restrict any use of the information to criminally investigate or prosecute any alcohol or drug abuse patient.[facility] event this information is protected by the Federal Confidentiality of Alcohol and Drug Abuse Patient Records regulations: The Federal rules restrict any use of the information to criminally investigate or prosecute any alcohol or drug abuse patient.[facility] CenterIn the event this information is protected by the Federal Confidentiality of Alcohol and Drug Abuse Patient Records regulations: The Federal rules restrict any use of the information to criminally investigate or prosecute any alcohol or drug abuse patient.[facility] CenterIn the event this information is protected by the Federal Confidentiality of Alcohol and Drug Abuse Patient Records regulations: The Federal rules restrict any use of the information to criminally investigate or prosecute any alcohol or drug abuse patient.[facility] CenterIn the event this information is protected by the Federal Confidentiality of Alcohol and Drug Abuse Patient Records regulations: The Federal rules restrict any use of the information to criminally investigate or prosecute any alcohol or drug abuse patient.[facility] CenterIn the event this information is protected by the Federal Confidentiality of Alcohol and Drug Abuse Patient Records regulations: The Federal rules restrict any use of the information to criminally investigate or prosecute any alcohol or drug abuse patient.[facility] CenterIn the event this information is protected by the Federal Confidentiality of Alcohol and Drug Abuse Patient Records regulations: The Federal rules restrict any use of the information to criminally investigate or prosecute any alcohol or drug abuse patient.[facility] CenterIn the event this information is protected by the Federal Confidentiality of Alcohol and Drug Abuse Patient Records regulations: The Federal rules restrict any use of the information to criminally investigate or prosecute any alcohol or drug abuse patient.[facility] CenterIn the event this information is protected by the Federal Confidentiality of Alcohol and Drug Abuse Patient Records regulations: The Federal rules restrict any use of the information to criminally investigate or prosecute any alcohol or drug abuse patient.[facility] CenterIn the event this information is protected by the Federal Confidentiality of Alcohol and Drug Abuse Patient Records regulations: The Federal rules restrict any use of the information to criminally investigate or prosecute any alcohol or drug abuse patient.[facility] CenterIn the event this information is protected by the Federal Confidentiality of Alcohol and Drug Abuse Patient Records regulations: The Federal rules restrict any use of the information to criminally investigate or prosecute any alcohol or drug abuse patient.[facility] CenterIn the event this information is protected by the Federal Confidentiality of Alcohol and Drug Abuse Patient Records regulations: The Federal rules restrict any use of the information to criminally investigate or prosecute any alcohol or drug abuse patient.[facility] CenterIn the event this information is protected by the Federal Confidentiality of Alcohol and Drug Abuse Patient Records regulations: The Federal rules restrict any use of the information to criminally investigate or prosecute any alcohol or drug abuse patient.[facility] CenterIn the event this information is protected by the Federal Confidentiality of Alcohol and Drug Abuse Patient Records regulations: The Federal rules restrict any use of the information to criminally investigate or prosecute any alcohol or drug abuse patient.[facility] CenterIn the event this information is protected by the Federal Confidentiality of Alcohol and Drug Abuse Patient Records regulations: The Federal rules restrict any use of the information to criminally investigate or prosecute any alcohol or drug abuse patient.[facility] CenterIn the event this information is protected by the Federal Confidentiality of Alcohol and Drug Abuse Patient Records regulations: The Federal rules restrict any use of the information to criminally investigate or prosecute any alcohol or drug abuse patient.[facility] CenterIn the event this information is protected by the Federal Confidentiality of Alcohol and Drug Abuse Patient Records regulations: The Federal rules restrict any use of the information to criminally investigate or prosecute any alcohol or drug abuse patient.[facility] CenterIn the event this information is protected by the Federal Confidentiality of Alcohol and Drug Abuse Patient Records regulations: The Federal rules restrict any use of the information to criminally investigate or prosecute any alcohol or drug abuse patient.[facility] CenterIn the event this information is protected by the Federal Confidentiality of Alcohol and Drug Abuse Patient Records regulations: The Federal rules restrict any use of the information to criminally investigate or prosecute any alcohol or drug abuse patient.[facility] CenterIn the event this information is protected by the Federal Confidentiality of Alcohol and Drug Abuse Patient Records regulations: The Federal rules restrict any use of the information to criminally investigate or prosecute any alcohol or drug abuse patient.[facility] CenterIn the event this information is protected by the Federal Confidentiality of Alcohol and Drug Abuse Patient Records regulations: The Federal rules restrict any use of the information to criminally investigate or prosecute any alcohol or drug abuse patient.[facility] CenterIn the event this information is protected by the Federal Confidentiality of Alcohol and Drug Abuse Patient Records regulations: The Federal rules restrict any use of the information to criminally investigate or prosecute any alcohol or drug abuse patient.[facility] CenterIn the event this information is protected by the Federal Confidentiality of Alcohol and Drug Abuse Patient Records regulations: The Federal rules restrict any use of the information to criminally investigate or prosecute any alcohol or drug abuse patient.[facility] FOR RECORDS PERTAINING TO PATIENTS WHO ARE [...] BE BASED ON THE PRIMARY CLINICAL RECORDS. [facility]. provides no warranty or guarantee of the accuracy or completeness of information in this document.
[2023-12-27 22:38] VITALS: PULSE 94; O2SAT 98
[2023-12-27 22:39] VITALS: BP 134/72; PULSE 90; TEMP 36.6
[2023-12-27 22:55] VITALS: BMI 27.4
[2023-12-27 23:27] LABS: ROM Internal Control Test YES-OK TO RESULT pt. (Internal QC); ROM Patient Test Negative (Negative)
--- NOTE | 2023-12-28 04:45 | OB.TRI.HP_ITS ---
HPI - General HPI Narrative KARLA CAMPUZANO, is a 28 F @ 39.3 weeks who presents C/O [facility] Medical History (Updated 12/28/23 @ 04:[address] Tiffany Matos MD) Anemia Migraines Home Medications ferrous sulfate 325 mg (65 mg iron) tablet (FeroSul) 325 mg PO DAILY anemia 12/27/23 [History Last Taken 12/27/23] magnesium 200 mg tablet 200 mg PO DAILY restless legs 12/27/23 [History Last Taken 12/26/23] omeprazole 10 mg capsule,delayed release 10 mg PO DAILY PRN acid reflux 12/27/23 [History Last Taken 12/27/23] Allergy/AdvReac Type Severity Reaction Status Date / Time No Known Allergies Allergy Verified 12/27/23 22:57 Surgical History History of appendectomy History of wisdom tooth extraction Social History (Updated 02/24/22 @ 11:17 by Silke Austin) Smoking Status: Never smoker alcohol intake: current details: social substance use type: does not use caffeine: Yes seatbelt use: always do you feel safe at home: Yes additional social history: [employer] History 1 Elective abortions 0 Hx Para 1 Spontaneous abortions 0 Hx # Term Pregnancies 1 Ectopic pregnancies 0 Hx # Pregnancies 0 Multiple births 0 # of living children 1 Past Pregnancies Del. Date Name GA/Weeks Outcome Route Bth Weight Infant Gen Labor Lgth Anesthesia Del Locatn Provider FOB Unknown 2020 Bucky III (Crockett) 39 live - full term vacuum 8lbs 1oz Male epidural [facility] Romero [facility] Delivery Date: Last Updated by: Silke Austin 2nd degree perineal tear, vacuum 2nd attempt successful NST FHR Rate Baby A Baseline: 120 Variability:: Moderate Accelerations:: 15 x 15 Decelerations:: None NST Reactive:: Yes Uterine Activity:: irregular Assessment & Plan (1) False labor after 37 completed weeks of gestation: (2) Intact amniotic membranes: (3) 39 weeks gestation of : PLAN: Plan @ 39.3 weeks- False labor, membranes intact Rom + was negative dc home well being established
== END 2023-12-28 | disposition home or self-care (01) ==
LOC: WP 22:29 → WPOUT 22:29
PROVIDERS: PCP Family Medicine; Visit Provider Obstetrics & Gynecology
DX: O47.1 False labor at or after 37 completed weeks of gestation (principal); Z3A.39 39 weeks gestation of pregnancy; O26.23 Pregnancy care for patient with recurrent pregnancy loss, third trimester; O99.013 Anemia complicating pregnancy, third trimester
CPT/HCPCS: 59025; 59050; 84112; 99221; G0378

== ENCOUNTER 2023-12-28 15:20 | Inpatient (IN) | payer BC, SELFPAY ==
[2023-12-28] VITALS (31 sets, daily range): BP systolic 90–142; BP diastolic 47–83; PULSE 68–122; TEMP 36.6–37.3; O2SAT 80–100; BMI 27.0
[2023-12-28] MEDS: Lactated Ringers 1,000 ML 50 ML IV (15:48)
[2023-12-28] MEDS: Oxytocin 15 Units/NS 250ml 15 UNITS/250 ML IV.SOLN 2 UNITS IV (15:48)
[2023-12-28 16:06] LABS: Absolute Lymphocyte Count 1.35 X10^3/uL (0.83-4.51); Absolute Neutrophil Count 7.6 X10^3/uL (2.0-7.7); Basophil# 0.03 X10^3/uL; Basophil% 0.3 % (0-1); Eosinophil# 0.03 X10^3/uL; Eosinophils% 0.3 % (0-5); Hematocrit 41.7 % (37-47); Hemoglobin 13.6 g/dL (12.0-15.0); Lymphocyte # 1.35 X10^3/ul (0.83-4.51); Mean Corp Hgb Conc 32.6 g/dL (32-36); Mean Corpuscular Hgb 29.8 pg (27.0-32.0); Mean Corpuscular Volume 91.4 fL (81-99); Mean Platelet Vol. 11.4 fl (6.2-12.0); Monocyte# 0.59 X10^3/uL; Monocyte% 6.1 % (0-10); NRBC Flagged by Analyzer 0 % (0-5); Neutrophil % 78.9 % (47-70); Platelet Count 169 K/mm3 (150-450); RBC Distribution Width CV 13.9 % (11.6-14.6); RBC Distribution Width SD 46.3 fl (35.1-43.9); Red Blood Count 4.56 M/mm3 (4.2-5.4); White Blood Count 9.6 K/mm3 (4.4-11.0)
[2023-12-28 16:25] LABS: ROM Internal Control Test YES-OK TO RESULT pt. (Internal QC); ROM Patient Test Negative (Negative)
[2023-12-28 17:03] LABS: Syphilis Antibodies Non-reactive
--- OUTSIDE RECORDS SUMMARY | 2023-12-28 18:19 | XMS RPT_ITS | CCD ---
Author Name Unknown Address [address] [place] [address] Organization [facility] Care Team Providers Care Certified Pesticide Applicator Name Role Phone Arnoldo Mancia Unavailable Unavailabl [...] Referring Unavailable DEVENDRA CHASE Primary Care Unavailable Salvatore JOHNSON, Devendra Hughes Primary Care Provider [phone] Devendra Chase MD Primary Care Provider Devendra Chase MD Primary Care Provider [phone] ANTON BROWNING Attending Unavailable DEVENDRA CHASE Primary Care Unavailable ANTON BROWNING Attending Unavailable DEVENDRA CHASE Primary Care Unavailable ARCELIA MACIAS Attending Unavailable DEVENDRA CHASE Primary Care Unavailable DEVENDRA CHASE Primary Care Unavailable SHEILA ALEXANDER Referring Unavailable TOM, ARCELIA Referring Unavailable DEVENDRA CHASE Primary Care Unavailable FRANCESCO BOWEN Referring Unavail able DEVENDRA CHASE Primary Care Unavailable FRANCESCO BOWEN Referring Unavail able DEVENDRA CHASE Primary Care Unavailable TOM, ARCELIA Attending Unavailable DEVENDRA CHASE Primary Care Unavailable TOM, ARCELIA Attending Unavailable DEVENDRA CHASE Primary Care Unavailable WISWELL, ARCELIA Referring Unavailable FRANCESCO BOWEN Referring Unavail able DEVENDRA CHASE Primary Care Unavailable MEKA BROWN Attending Unavailable [facility] Care Un[facility] Primary Care Unavailable ARCELIA MACIAS Attending Unavailable NEJUANAT LAURA, FRANCESCO Attending Unavail able [facility] Primary Care Unavailable NEYHART SANCHEZ, FRANCESCO Referring Unavail able [facility], [facility] Primary Care Unavailable NEYHART SANCHEZ, FRANCESCO Referring Unavail able [facility], [facility] Primary Care Unavailable [facility], [facility] Primary Care Unavailable WISWELL, ARCELIA Referring Unavailable [facility], [facility] Primary Care Unavailable MEKA BROWN Attending Unavailable [facility], [facility] Primary Care Unavailable SHEILA ALEXANDER Attending Unavailable [facility], [facility] Primary Care Unavailable NEYHART SANCHEZ, FARNCESCO Attending Unavail able [facility], [facility] Primary Care Unavailable WISWELL, ARCELIA Referring Unavailable WISWELL, ARCELIA Referring Unavailable [facility], [facility] Primary Care Unavailable WISWELL, ARCELIA Referring Unavailable ANTON BROWNING Attending Unavailable [facility], [facility] Primary Care Unavailable [facility], [facility] Primary Care Unavailable MEKA BROWN Attending Unavailable NEYHART SANCHEZ, FRANCESCO Referring Unavail able [facility] Primary Care Unavailable NEYHART SANCHEZ, FRANCECSO Referring Unavail able [facility] Primary Care Unavailable [facility] Primary Care Unavailable NEMICHELLE SANCHEZ, FRANCESCO Attending Unavail able Devendra Chase MD Unavailable Neurology Provider Unavailable Unavailable [facility] Unavailable Dre CAMARA, Vika Unavailable Unavailable Asael SPONGE BUFFER, Sydney E Unavailable Unavailable John DENNISN, Joaquina Samuels Unavailable Unavailab le Vess SPONGE BUFFER, Neilee L Unavailable Unavailable Unavailable Unavailable Medications Completed/Discontinued Medications Medication Drug Class(es) Dates Sig (Normalized) Sig (Original) ciprofloxacin 500 mg oral tablet (1 source) Quinolone Antimicrobial Start: 10-04-2010 End: 10-11-2010 take 1 tablet by mouth twice daily CIPRO, 500MG (Oral Tablet) ; 1 Tab two times daily for 7 days Quantity: 14 {Tab} Refills: 0 Ordered: 25-Mar-2011 MD Devendra Chase Start: 04-Oct-2010 End: 11-Oct-2010 Status: Inactive citalopram 20 mg oral tablet (1 source) Serotonin Reuptake Inhibitor Start: 03-04-2013 End: 08-10-2013 take 1 tablet by mouth once daily CITALOPRAM HYDROBROMIDE, 20MG (Oral Tablet) ; 1 Tablet daily for 0 days Quantity: 30 {Tablet} Refills: 3 Ordered: 10-Aug-2013 YARELY Lopez Joaquina Samuels Start: 04-Mar-2013 End: 10-Aug-2013 Status: Inactive doxycycline hyclate 100 mg oral tablet (1 source) Tetracycline-class Drug Start: 11-26-2022 End: 11-26-2022 take 2 tablets by mouth once doxycycline (VIBRA-TABS) 100 mg tablet Take 2 tablets by mouth one time only for 1 dose. 2 tablet 0 11/26/2022 11/26/2022 Problems Active Problems Problem Classification Problem Date Documented Da te Episodic/Chronic Administrative/social admission (3 sources) Issue of repeat prescriptions 03-04-2013 Episodic Anxiety disorders (2 sources) Generalized anxiety disorder; Translations: [Generalized anxiety disorder] 04-05-2019 Chronic Cardiac dysrhythmias (2 sources) Palpitations; Translations: [Palpitations] 04-05-2019 Episodic Contraceptive and procreative management (2 sources) Contraception ; Translations: [Encounter for other general counseling and advice on contraception] 04-05-2019 Episodic Fever of unknown origin (1 source) Fever; Translations: [Fever, unspecified fever cause] Episodic Headache; including migraine (20 sources) Migraine with aura; Translations: [Migraine with aura, not intractable, without status migrainosus] Onset: 04-16-2020 04-16-2020 Chronic Immunizations and screening for infectious disease (2 sources) Encounter for observation for suspected exposure to other biological agents ruled out 03-29-2020 Episodic Malaise and fatigue (2 sources) Fatigue; Translations: [Other fatigue] 04-05-2019 Episodic Other complications of (10 sources) History of [...] unspecified, first trimester] Onset: 06-12-2020 05-15-2023 Episodic Other screening for suspected conditions (not mental disorders or infectious disease) (6 sources) Patient encounter status; Translations: [Encounter for screening, unspecified] Onset: 03-17-2023 06-25-2023 Episodic Other skin disorders (2 sources) Bacterial folliculitis; Translations: [Other specified follicular disorders] 04-05-2019 Episodic Residual codes; unclassified (2 sources) Gestation [...] complication; Translations: [Incomplete spontaneous without complication] Episodic Unclassified (1 source) Headache - The onset of the headache has been sudden and has been occurring for 1 year. The course has been recurrent (and usually will get one about once a week.). The headache is characterized as severe and throbbing (and headache is mainly in left frontal area.). The headache is experienced any time of the day (no diurnal variation). The symptoms have been associated with blurring of vision (and will see flashing light in right eye only and will get nauseated and vomit. Pt has tried some Maxalt which usually helps. Has been on Inderal, Topamax from neurologist in [place]. Pt was taken off Inderal about 2 months ago due to chest pains and palpatations. Does not take any Topamax or Inderal any longer either. Is only using the Cellabust. Here to discuss the possiblilty of a medication for anxiety to see if this would would help. Had been on some citalopram in past as well but that did not help at all.). Note for Headache : Seems to be very active and plays basketball and will get very anxious and this anxiousness seemt ot bring them on. GRades are doing well. Denies any stressors w friends, patrents are getting . Pt is not suicidal. 09-30-2013 Viral infection (2 sources) Verruca vulgaris; Translations: [Viral wart, unspecified] 04-05-2019 Episodic Past or Other Problems Problem Classification [...] loss without current ] Onset: 03-28-2023 Episodic Residual codes; unclassified (6 sources) H/O: [...] weeks gestation of ] Onset: 08-17-2023 Episodic Unclassified (1 source) Headache - The onset of the headache has been variable and has been occurring in an intermittent pattern for 10 years. The course has been recurrent. The headache is characterized as severe. The headache is experienced any time of the day (no diurnal variation). The headache is described as being located in the left side. Note for Headache : Asking for referral for frequent migraines. She saw a neurologist several years ago in [place] and did not improve. Long histopry of classic migraine sx. She would like to try again and has name of someone from [place] 04-05-2019 Unclassified (1 source) control (initial visit) - The patient's motivation for contraception is the prevention of (Pt is currently in a relationship. She has never been in sexual relationship in the past and is not currently in one at this point however she feels the relationship may be heading in this direction and would like OCP as preventive measures for .). The patient is requesting oral contraceptives (but states cannot be on combination pill per her neurologist.). Parental consent was obtained (mother had called to schedule apt). No previous methods of contraception have been used. Previous pregnancies: none. Previous abortions/miscarriage s: none. There is no STD history pertinent to this complaint. 03-31-2014 Unclassified (1 source) Palpitations - The symptoms first began 3 day(s) ago. The onset has been spontaneous. Each episode lasts approximately 5 minutes (Much longer during volleyball practice.). The symptoms occur 2 time(s) per hour . The symptoms are improving. The palpitations are described as fast and fluttering. Associated features include chest pain (during practice), but do not include dizziness, nausea, syncope, tired/fatigue or weakness. Precipitating factors include change in position (Going from sitting to standing positio.) and exertion. Note for Palpitations : No energy drinks or caffeine. She was on inderal in the past and recently went off it. She had been on it for migraine prevention. 08-10-2013 Unclassified (1 source) Migraines - Pt here this afternoon because her migraines have become more frequent. Averaging about 4-5 a month. The citalopram had been working when first prescribed but then it stopped working. Dose was increased to 20 mg in February but pt has not noticed any difference, in fact she seems to be getting more. The Maxalt dose help with the actual Migraine and able to get relief. Nausea is noted with some migraines but not all. Her last Migraine was last night and was pretty severe. She states when migraines occur she looses vision in her right eye. Here for re-evaluation and to see if there is any other medication to be used to help prevent these headaches. reviewed by [facility] 04-18-2013 Unclassified (1 source) Discuss frequent Migraines - Has had four migraines in the past 6 weeks. Pain lasts all day. Maxalt helps only on occasion. Also complains of increased fatigue. I saw her in June for this , CT of brain was normal. DShe had neurologic sx at that time as well. No precipitators noted. She continues w neuro sx as well w [facility]. They kept BE[facility]ER jouranal and ssx are worse when in flourescent lighting. Maxalt helps usually. No help w OTC meds.She does vomit with these. Sx will last all day sometimes. 11-10-2012 Unclassified (1 source) Headache - The onset of the headache has been variable and has been occurring in an intermittent pattern for 4 hours. The course has been decreasing in severity. The headache is characterized as throbbing. The headache is described as being located in the frontal area. The symptoms have been associated with nausea and vomiting. Note for Headache : Has had 2 migraines over the past 6 weeks. Is feeling better this afternoon. Here to discuss frequency of headaches. Father gets migraines. Exedrin migarine has not helped . Most recently her mouth and R arm went numb. She gets a visual aura beforehand. 07-02-2012 Unclassified (1 source) reaction to bromine - Pt here with dad because she thinks she may be allergic to the bromine that is used to clean hot tub. Had sore on right foot and now is purplish in color. Also has small red spots over body. 10-04-2010 Unclassified (1 source) Plantatrs warts - Pt here for removal of plantars warts left foot x 3. Has not been seen for these before 08-09-2010 Results Test Name Value Interpretation Reference Range Facil ity Vital Signs Date Time Vital Sign Value Performing Clinician Patrick alexandre 12-25-2023 10:27-0500 Body weight 85.55 kg Gabby Dill APRN.CNM Work Phone: [facility] 12-25-2023 10:27-0500 Diastolic blood pressure 64 mm[Hg] Gabby Dill APRN.CNM Work Phone: [facility] 12-25-2023 10:27-0500 Systolic blood pressure 110 mm[Hg] Gabyb Dill APRN.CNM Work Phone: [facility] [...] Center 09-17-2023 15:21-0500 Body weight 74.84 kg Sheila Alexander APRN.COUNTER PROFESSIONAL Work Phone: [facility] 09-17-2023 15:21-0500 Diastolic blood pressure 68 mm[Hg] Sheila Alexander APRN.COUNTER PROFESSIONAL Work Phone: [facility] 09-17-2023 15:21-0500 Systolic blood pressure 118 mm[Hg] Sheila Catherine TENORIO Work Phone: [facility] 06-25-2023 15:33-0400 [...] 05-23-2022 15:10-0400 Body height 177.8 cm Lydia Neumann APRN-COUNTER PROFESSIONAL Work Phone: [facility] Encounters Encounter Date Encounter Type Care Provider Facility Start: 12-25-2023 End: 12-25-2023 ambulatory FRANCESCO SANCHEZ [facility] Start: 12-25-2023 End: 12-25-2023 Patient encounter procedure Gabby Dill LUIS.CNM Work Phone: OB/Gynecology Procedures Date Procedure Procedure Detail Performing Clinician Start: 12-25-2023 URINE OB DIP B/O Francesco Sanchez MD Work Phone: Start: 12-17-2023 URINE OB DIP B/O Arcelia ovalles MD Work Phone: Start: 10-12-2023 URINE OB DIP B/O Francesco Sanchez MD Work Phone: Start: 08-17-2023 Us preg uterus after 1st trimest 1/ gestation Arcelia Macias MD Work Phone: Start: [...] [facility] Center Start: 10-23-2030 Tetanus vaccination TETANUS [facility] Start: 10-23-2030 Urine microalbumin profile [facility] [...] weeks gestation of Expected: 09/17/2023, Expires: 12/17/2023 [facility] Work Phone: Immunizations Immunization Date Immunization Notes [...] virus vaccine, unspecified formulation [employer] MA [facility] Payers Date Payer Category Payer Unknown [id number] 2022 Private Health Insurance [id number] 2022 Private Health Insurance [id number] 2022 Unknown [id number] 2019 Unknown [employer] S [employer]PER[employer] PPO xxxxxxxxxxxx 2019-Present xxxxxxxxxxxx [id number] 2019 Unknown [id number] 2018 Unknown 1996 Unknown [id number] 1996 Unknown [id number] 1996 Unknown [id number] Social History Date Type Detail Facility Start: 03-24-2020 End: 11-19-2022 Tobacco smoking status NHIS Never smoker [facility] Work Phone: Start: 03-24-2020 Alcohol intake Current drinker of alcohol (finding) [facility] Start: 03-24-2020 History SDOH Alcohol Frequency 3 [facility] Start: 03-24-2020 End: 05-31-2020 History SDOH Alcohol Std Drinks 1 [facility] Start: 03-24-2020 Alcohol Comment socially [facility] Start: 1996 Sex Assigned At Not on file [facility] Exposure to SARS-CoV -2 (event) Yes [facility] Tobacco smoking stat us [facility] Tobacco smoking consumption unknown [facility] Start: 02-19-2015 End: 11-19-2022 Tobacco use [...] Gender identity Identifies as female gender (finding) [facility] Start: 04-16-2020 Sexual orientation Heterosexual (finding) [facility] Start: 04-09-2023 [facility] Start: [...] Never true [facility] Work Phone: Tobacco Use: Tobacco Use: ; N ever smoker. [facility] Work Phone: Goals Date Patient Goal Desired [...] be different from the original. CHERISE-S: Sarah Farmer is a 28 year old female who [...] It will require an appointment with our engineering specialist technician. This is not an ultrasound performed [...] the above symptoms, contact our office at [phone] and ask to speak with a nurse. After hours, you can call doctors registry at [phone] OR call [facility] at [phone] and ask to have the doctor soup person paged. If you consider this an emergency, dial 3-1-7 or go to your nearest emergency department. NEED HELP? Are you dealing with a violent or abusive relationship? Are you a victim of rape or sexual assult? Call [facility] ([place]) 24 hour Crisis Hotline: 946.235.6996 or 812-465-3455. MANUAL Your Guide to a Healthy manual is now on-line. Visit [email or web address] to download your free copy [...] It will require an appointment with our engineering specialist technician. This is not an ultrasound performed [...] the above symptoms, contact our office at [phone] and ask to speak with a nurse. After hours, you can call doctors registry at [phone] OR call [facility] at [phone] and ask to have the doctor soup person paged. If you consider this an emergency, dial 9-1-2 or go to your nearest emergency department. NEED HELP? Are you dealing with a violent or abusive relationship? Are you a victim of rape or sexual assult? Call [facility] ([place]) 24 hour Crisis Hotline: 872.245.8890 or 225-055-1288. MANUAL Your Guide to a Healthy manual is now on-line. Visit [email or web address] to download your free copy documented in this encounter [facility] 12-11-2023 Note HNO ID: [id number] Author: MEKA BROWN MD Service: ? Author Type: Physician Type: Progress Notes Filed: 12/11/2023 15:02 Note Text: NST SUMMARY PROVIDER ASSESSMENT AND INTERPRETATION Sarah Farmer is a 28 year old female, , who is at 37w1d with an RENO of 12/31/2023, by Last Menstrual Period dating method. Indications for NST: Decreased Movement Baseline: 125 Variability: Moderate Accelerations: Present 15 X 15 Decelerations: None Contractions: TOCO: None Interpretation: Category I and Reactive SIGNATURE: Meka Brown MD [facility] 10-26-2023 Note HNO ID: [id number] Author: Joe Knox Cma Service: ? Author Type: ? Type: Progress Notes Filed: 10/26/2023 10:28 AM Note Text: Patient identified by name and date of . Sarah Farmer presents today for a vaccination of Tdap. Patient denies an allergy to latex: yes Patient denies a severe (life-threatening) allergy to a previous dose of Tdap, DTP, DTaP, DT or Td vaccine. Yes Patient denies history of epilepsy or neurological problems: Yes Patient is afebrile and denies being moderately or severely ill: Yes Patient denies history of Guillain-Powell Syndrome (a severe paralytic illness): Yes Tdap Adacel injection was given without incident. See immunizations for details of immunizations administered today. VIS sheet provided: Yes Provider Francesco Sanchez MD was present in office at time of injection. Joe Knox Cma [facility] 10-12-2023 Miscellaneous Notes Formattin g of [...] Medical Center 10-12-2023 Instructions Vane Weinstein Ma - 10/12/2023 9:40 AM EST SEQUENTIAL SCREENINGS The [...] It will require an appointment with our engineering specialist technician. This is not an ultrasound performed [...] the above symptoms, contact our office at [phone] and ask to speak with a nurse. After hours, you can call doctors registry at [phone] OR call [facility] at [phone] and ask to have the doctor soup person paged. If you consider this an emergency, dial 9-1-6 or go to your nearest emergency department. NEED HELP? Are you dealing with a violent or abusive relationship? Are you a victim of rape or sexual assult? Call [facility] ([place]) 24 hour Crisis Hotline: 258.274.9195 or 636-736-8832. MANUAL Your Guide to a Healthy manual is now on-line. Visit [email or web address] to download your free copy [...] - 4.5 hours of pushing Sheila Alexander APRN.COUNTER PROFESSIONAL documented in this encounter [facility] 09-17-2023 Instructions Fiona Rendon Ma - 09/17/2023 3:15 PM EST SEQUENTIAL [...] It will require an appointment with our engineering specialist technician. This is not an ultrasound performed [...] the above symptoms, contact our office at [phone] and ask to speak with a nurse. After hours, you can call [facility] at [phone] OR call [facility] at [phone] and ask to have the doctor soup person paged. If you consider this an emergency, dial 9-1-7 or go to your nearest emergency department. NEED HELP? Are you dealing with a violent or abusive relationship? Are you a victim of rape or sexual assult? Call [facility] ([place]) 24 hour Crisis Hotline: 863.904.6967 or 188-508-5431. MANUAL Your Guide to a Healthy manual is now on-line. Visit [email or web address] to download your free copy documented in this encounter [facility] 07-21-2023 Miscellaneous Notes Formattin g of this note might be different from the original. See foc.us message. Form signed. documented in this encounter [facility] 06-25-2023 Note HNO ID: [id number] Author: Inessa Hernandes LPN Service: ? Author Type: ? Type: Progress Notes Filed: 06/25/2023 3:49 PM Note Text: Patient here for First Trimester Screening. See ultrasound report for details. Options for genetic screening and diagnosis discussed with the patient. Patient opts for first trimester screening and the sequential screening protocol. Limitations of screening tests discussed with the patient. Anton Browning MD [facility] 06-25-2023 Miscellaneous Notes Formattin g of [...] Blood testing can be done at any [facility] lab. Please report to the any manager plan office front desk worker for the Sequential Part 2 requisition and [...] medicine office, for east side please call [phone] or for the West side call [phone] and ask for the the nurse. Thank [...] It will require an appointment with our engineering specialist technician. This is not an ultrasound performed [...] the above symptoms, contact our office at [phone] and ask to speak with a nurse. After hours, you can call doctors registry at [phone] OR call [facility] at [phone] and ask to have the doctor soup person paged. If you consider this an emergency, dial 9-1-8 or go to your nearest emergency department. NEED HELP? Are you dealing with a violent or abusive relationship? Are you a victim of rape or sexual assult? Call [facility] ([place]) 24 hour Crisis Hotline: 431.983.2108 or 435-796-2821. MANUAL Your Guide to a Healthy manual is now on-line. Visit [email or web address] to download your free copy [...] [facility] 06-01-2023 Note HNO ID: [id number] Author: Arcelia Macias MD Service: ? Author Type: Physician Type: Progress Notes Filed: 06/01/2023 12:42 PM Note Text: Traffic Safety Administrator offered: Patient declines. INITIAL OB ASSESSMENT OB [...] use: No Multivitamin with Folic acid: Yes Sabianist or heritage: No Would refuse blood transfusion if medically necessary: No Are you currently employed? 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 Do you have any history of depression, [...] Status: Partner: Name: Levar Age: 28 Occupation: [employer] Gender: Male History of STDs: None PAST MEDICAL HISTORY Diagnosis Date Anemia Migraines Miscarriage Staph infection 2004 right finger-hospitalized for 5 days PAST SURGICAL HISTORY Procedure Laterality Date APPENDECTOMY HX PAST SURGICAL HISTORY OF Right right 2nd finger-staph infection TOOTH EXTRACTION [place] [facility] (OFFICE [facility]) Current Outpatient Medications Medication Sig Dispense Refill Sicdackg-Ju-Acz-Fe-FA ( VITAMIN) tab Take 1 tablet by [...] lesions, non-icteric, an (more content not included)... [facility] 05-14-2023 Note HNO ID: [id number] Author: Caridad Adam RN Service: ? Author [...] None, Apgar5: None, Living: None, Comments: None [facility] 05-14-2023 Miscellaneous Notes Formattin g of [...] genetic carrier screening testing. Contact information for [employer] labs given to patient to check on [...] is currently taking medication ?Checked [facility] Miscellaneous Notes Formattin g of this note is different from the original. Images from the original note were not included. CoverMyMeds ? Checked for previous INSURANCE encounter Current PA expires 05/23/2023 ?Checked med list or last office note, pt is currently taking medication ?Checked prescribing provider documented in this encounter [facility] 03-20-2023 Miscellaneous Notes Formattin g of this note might be different from the original. Appointments scheduled. Leann Leslie RN Yea I would say 7 weeks would be fine unless she has any bleeding. Do you need her to have a dating/viability US? documented in this encounter [facility] 11-26-2022 History of Presen t illness Narrative Sarah Farmer is a 26 year old female who presents for follow-up missed AB. Patient reports over the weekend started bleeding [...] L1 SAB0 IAB0 Ectopic0 Multiple0 Live Births1 [employer] History LMP: 10/09/2022, Unknown Age at Menarche: Age at First : Age at Menopause: [employer] History Comments: Sexual Activity: Not Asked; Male; not asked Contraception: Condom PAST MEDICAL HISTORY Diagnosis Date Anemia Migraines PAST SURGICAL HISTORY Procedure Laterality Date APPENDECTOMY HX TOOTH EXTRACTION [place] teeth FAMILY HISTORY Problem Relation Age of [...] Take 50 mg by mouth as needed. Bcfaegts-Wq-Nnl-Fe-FA ( VITAMIN) tab Take 1 tablet by [...] external genitalia normal, normal Bartholin's glands, urethra, [employer]'s glands, no vulvar lesions, no cervical lesions, [...] Francesco Matos MD Pre Procedure Assessment: Sarah Farmer is a 26 year old here for [...] History of Presen t illness Narrative Sarah Farmer is a 26 year old female who [...] L1 SAB0 IAB0 Ectopic0 Multiple0 Live Births1 [employer] History LMP: 04/12/2020, Unknown Age at Menarche: Age at First : Age at Menopause: [employer] History Comments: Sexual Activity: Not Asked; Male; not asked Contraception: Condom PAST MEDICAL HISTORY Diagnosis Date Anemia Migraines PAST SURGICAL HISTORY Procedure Laterality Date APPENDECTOMY HX TOOTH EXTRACTION [place] teeth FAMILY HISTORY Problem Relation Age of [...] Take 50 mg by mouth as needed. Gehjrpkt-Zo-Wix-Fe-FA ( VITAMIN) tab Take 1 tablet by [...] and Date of : Yes Patient: Sarah Farmer Date of : 1995 Provider for this encounter : Any Devendra Chase MD Reason for call: Triage Was an appointment scheduled: No Reason for requesting visit: -LMP 10-09-2022/CRAMPING/LOWER LEFT ABDOMINAL PAIN/SPOTTING Person calling: self Return call to: self Call patient at: on cell [phone] (home) [phone] (cell) Payor: [employer]ET[employer] / Plan: AETNA OPEN ACCESS AET[employer] SELECT / Product Type: EPO / [facility] Rep documented in this encounter [facility] 05-23-2022 Instructions AUTUMN Leahy - 05/23/2022 3:37 PM EDT -Continue ubrelvy PRN for migraine -Continue botox documented in this encounter [facility] 05-23-2022 History of Presen t illness Narrative [facility] [place] Department of Neurology Headache Division Follow-up Visit [...] ---> Follow-up: 1 year with me Lydia Neumann MS, CUT FILE CLERK-COUNTER PROFESSIONAL Department of Neurology Headache Division/Interventional Pain Division [facility] [place] Total time in minutes spent with patient, reviewing records, imaging, labs: 7 with more than 50% of the time spent in patient education/counselling/coordina ting care with the patient and /or family. cc: Devendra Chase [address] [place] [address] [place] [address] CC: migraine HPI: The patient was seen [...] content unremarkable. Follows commands appropriately. Speech fluent. certified medication technician II-XII intact b/l. No pronator drift. Sensation intact to light touch. Gjfooz-gw-qeis testing absent for ataxia. Stable primary gait. Normal tandem walking. Migraine Disability Assessment Test (MIDAS) score: 7 documented in this encounter [facility] 05-23-2022 Telephone encount er Note Medication Access Team coordinated the following: [facility] Clinics: MS/Neurology Prior Authorization Per the patient's insurance provider, [facility], the prior authorization for Ubrelvy (on-label) was approved. Authorization number: [id number] Authorization start date: 04/23/2022 Authorization end date: 05/23/2023 Non-Oncology Specialty Prescriptions: 1, 25-30 min Luis Angel Fuentes [facility] 05-23-2022 Miscellaneous Notes Formattin g of this note might be different from the original. Medication Access Team coordinated the following: [facility] Clinics: MS/Neurology Prior Authorization Per the patient's insurance provider, [facility], the prior authorization for Ubrelvy (on-label) was approved. Authorization number: [id number] Authorization start date: 04/23/2022 Authorization end date: 05/23/2023 Non-Oncology Specialty Prescriptions: 1, 25-30 min Luis Angel Fuentes Images from the original note were not included. CoverMyMeds ? Checked for previous INSURANCE encounter Current auth expires 05/22/2022 ?Checked med list or last office note, pt is currently taking medication ?Checked prescribing provider documented in this encounter [facility] 05-09-2022 Telephone encount er Note Images from the original note were not included. CoverMyMeds ? Checked for previous INSURANCE encounter Current auth expires 05/22/2022 ?Checked med list or last office note, pt is currently taking medication ?Checked prescribing provider [facility] documented as of this encounter (statuses as of 11/17/2022) [address]18-2021 History of Past illness Narrative* Problem Noted Date Resolved Date COVID-19 affecting in third trimester 12/27/2020 02/18/2021 Encounter for supervision of normal in first trimester 06/12/2020 02/18/2021 documented as of this encounter (statuses as of 11/19/2022) [address]18-2021 History of Past illness Narrative* Problem [...] of this encounter (statuses as of 11/24/2022) [address]18-2021 History of Past illness Narrative* Problem Noted Date Resolved Date COVID-19 affecting in third trimester 12/27/2020 02/18/2021 Encounter for supervision of normal in first trimester 06/12/2020 02/18/2021 documented as of this encounter (statuses as of 11/27/2022) [address]18-2021 History of Past illness Narrative* Problem Noted Date Resolved Date COVID-19 affecting in third trimester 12/27/2020 02/18/2021 Encounter for supervision of normal in first trimester 06/12/2020 02/18/2021 documented as of this encounter (statuses as of 11/27/2022) [address]18-2021 History of Past illness Narrative* Problem Noted Date Resolved Date COVID-19 affecting in third trimester 12/27/2020 02/18/2021 Encounter for supervision of normal in first trimester 06/12/2020 02/18/2021 documented as of this encounter (statuses as of 12/17/2022) [address]18-2021 History of Past illness Narrative* Problem Noted Date Resolved Date COVID-19 affecting in third trimester 12/27/2020 02/18/2021 Encounter for supervision of normal in first trimester 06/12/2020 02/18/2021 documented as of this encounter (statuses as of 03/20/2023) [address]18-2021 History of Past illness Narrative* Problem Noted Date Resolved Date COVID-19 affecting in third trimester 12/27/2020 02/18/2021 Encounter for supervision of normal in first trimester 06/12/2020 02/18/2021 documented as of this encounter (statuses as of 05/15/2023) [address]18-2021 History of Past illness Narrative* Problem Noted Date Diagnosed Date Resolved Date COVID-19 affecting in third trimester 12/27/2020 02/18/2021 Encounter for supervision of normal in first trimester 06/12/2020 02/18/2021 documented as of this encounter (statuses as of 05/16/2023) [address]18-2021 History of Past illness Narrative* Problem Noted Date Diagnosed Date Resolved Date COVID-19 affecting in third trimester 12/27/2020 02/18/2021 Encounter for supervision of normal in first trimester 06/12/2020 02/18/2021 documented as of this encounter (statuses as of 05/18/2023) [address]18-2021 History of Past illness Narrative* Problem Noted Date Diagnosed Date Resolved Date COVID-19 affecting in third trimester 12/27/2020 02/18/2021 Encounter for supervision of normal in first trimester 06/12/2020 02/18/2021 documented as of this encounter (statuses as of 06/04/2023) [address]18-2021 History of Past illness Narrative* Problem Noted Date Diagnosed Date Resolved Date COVID-19 affecting in third trimester 12/27/2020 02/18/2021 Encounter for supervision of normal in first trimester 06/12/2020 02/18/2021 documented as of this encounter (statuses as of 06/11/2023) [address]18-2021 History of Past illness Narrative* Problem Noted Date Diagnosed Date Resolved Date COVID-19 affecting in third trimester 12/27/2020 02/18/2021 Encounter for supervision of normal in first trimester 06/12/2020 02/18/2021 documented as of this encounter (statuses as of 06/26/2023) [address]18-2021 History of Past illness Narrative* Problem Noted Date Diagnosed Date Resolved Date COVID-19 affecting in third trimester 12/27/2020 02/18/2021 Encounter for supervision of normal in first trimester 06/12/2020 02/18/2021 documented as of this encounter (statuses as of 06/26/2023) [address]18-2021 History of Past illness Narrative* Problem Noted Date Diagnosed Date Resolved Date COVID-19 affecting in third trimester 12/27/2020 02/18/2021 Encounter for supervision of normal in first trimester 06/12/2020 02/18/2021 documented as of this encounter (statuses as of 07/09/2023) [address]18-2021 History of Past illness Narrative* Problem Noted Date Diagnosed Date Resolved Date COVID-19 affecting in third trimester 12/27/2020 02/18/2021 Encounter for supervision of normal in first trimester 06/12/2020 02/18/2021 documented as of this encounter (statuses as of 07/21/2023) [address]18-2021 History of Past illness Narrative* Problem Noted Date Diagnosed Date Resolved Date COVID-19 affecting in third trimester 12/27/2020 02/18/2021 Myopia - Both Eyes 02/19/2015 Regular astigmatism - Both Eyes 02/19/2015 08/17/2023 documented as of this encounter (statuses as of 08/18/2023) [address]18-2021 History of Past illness Narrative* Problem Noted Date Diagnosed Date Resolved Date COVID-19 affecting in third trimester 12/27/2020 02/18/2021 Myopia - Both Eyes 02/19/2015 3 Regular astigmatism - Both Eyes 02/19/2015 08/17/2023 documented as of this encounter (statuses as of 09/18/2023) [facility] of Past illness Narrative* Problem Noted Date Diagnosed Date Resolved Date COVID-19 affecting in third trimester 12/27/2020 02/18/2021 Myopia - Both Eyes 02/19/2015 3 Regular astigmatism - Both Eyes 02/19/2015 08/17/2023 documented as of this encounter (statuses as of 09/22/2023) [facility] History of Past illness Narrative* Problem Noted Date Diagnosed Date Resolved Date COVID-19 affecting in third trimester 12/27/2020 02/18/2021 Myopia - Both Eyes 02/19/2015 3 Regular astigmatism - Both Eyes 02/19/2015 08/17/2023 documented as of this encounter (statuses as of 10/12/2023) [facility] History of Past illness [...] of this encounter (statuses as of 12/25/2023) [facility] Migraine with aura and without status migrainosus, not intractable- Primary Migraine with aura, without mention of intractable migraine without mention of status migrainosus [facility] Diagnosis Threatened - Primary Threatened , unspecified as to episode of care documented in this encounter [facility] note* Diagnosis Bleeding in early - Primary Unspecified hemorrhage in early , unspecified as to episode of care Threatened Threatened , unspecified as to episode of care documented in this encounter [facility] note* Diagnosis Bleeding in early - Primary Unspecified hemorrhage in early , unspecified as to episode of care documented in this encounter [facility] note* Diagnosis Bleeding in early - Primary Unspecified hemorrhage in early , unspecified as to episode of care documented in this encounter [facility] note* Diagnosis Incomplete spontaneous without complication- Primary Incomplete spontaneous without mention of complication [facility] Diagnosis Threatened Threatened , unspecified as to episode of care [facility] Diagnosis Previous recurrent miscarriages affecting , antepartum- Primary documented in this encounter [facility] note* Diagnosis with uncertain dates in first trimester- Primary Bleeding in early Unspecified hemorrhage in early , unspecified as to episode of care documented in this encounter [facility] note* Diagnosis Dysuria- Primary documented in this encounter [facility] note* Diagnosis Encounter for screening of mother- Primary Unspecified screening 13 weeks gestation of state, incidental documented in this encounter [facility] note* Diagnosis Encounter for (NT) nuchal translucency scan- Primary Other specified screening 13 weeks gestation of state, incidental documented in this encounter [facility] note* Diagnosis Encounter for anatomic survey- Primary 20 weeks gestation of state, incidental [facility] Diagnosis Encounter for supervision of other normal in second trimester- Primary 25 weeks gestation of state, incidental due to History of vacuum extraction assisted delivery Other postprocedural status History of episiotomy [facility]* Diagnosis Previous recurrent miscarriages affecting , antepartum- Primary Encounter for supervision of other normal in third trimester 28 weeks gestation of state, incidental documented in this encounter [facility] note* Diagnosis 38 weeks gestation of - Primary state, incidental documented in this encounter [facility] note* Diagnosis Encounter for supervision of other normal in third trimester- Primary 39 weeks gestation of state, incidental documented in this encounter [facility] for referral (narrative)* Diagnostic Procedure Only (Routine) - Authorized Specialty Diagnoses / Procedures Referred By Contac t Referred To Contact [facility] Diagnoses Threatened Procedures OBSTETRIC ULTRASOUND WHI US PREG UTERUS AFTER 1ST TRIMEST 1 GESTATION Meka Brown MD [address] [place] [address] [facility] [employer] [place] [id number] Referral ID Status Reason Start Date Expiration Date Visits Requested Visits Authorized [id number] Authorized Auto-Generat ed Referral 11/17/2022 11/17/2023 1 1 [facility] for referral (narrative)* Diagnostic Procedure Only (Routine) - Authorized Specialty Diagnoses / Procedures Referred By Contac t Referred To Contact [facility] Diagnoses Bleeding in early Procedures OBSTETRIC ULTRASOUND WHI US PREG UTERUS AFTER 1ST TRIMEST GESTATION Francesco Bowen MD [address] [place] [address] [facility] [address] [place] [address] Referral ID Status Reason Start Date Expiration Date Visits Requested Visits Authorized [id number] Authorized Auto-Generat ed Referral 11/19/2022 11/19/2023 1 1 [facility] for visit Narrative* Diagnostic Procedure Only (Routine) - Closed Specialty Diagnoses / Procedures Referred By Contac t Referred To Contact [facility] Diagnoses Threatened Procedures OBSTETRIC ULTRASOUND WHI US PREG UTERUS AFTER 1ST TRIMEST GESTATION Meka Brown MD [address] [place] [address] [facility] [address] [place] [address] Referral ID Status Reason Start Date Expiration Date V isits Requested Visits Authorized [id number] Closed Auto-Generate d Referral 11/17/2022 11/17/2023 1 1 [facility] Summary Purpose Family History No Family History Records FoundNo Family History Records FoundNo Family History Records FoundNo Family History Records FoundNo Family History Records Found Advance Directives Documents on File Type Date Recorded Patient [employer]ep Advance Directives and Jordyn ibanez Will 03/24/2020 10:40 AM Instructions * Patient [...] water aren't available, use an alcohol-based hand telecommunications cable jointer. Don't share personal household items. These include bedding, towels, cups and glasses, and eating utensils. Clean and disinfect your home every day. Use household lead generation representative or disinfectant wipes or sprays. Take special care to clean things that you grab with your hands. These include doorknobs, remote controls, phones, and handles on your refrigerator and microwave. And don't forget countertops, tabletops, bathrooms, and computer keyboards. Current as of: March 02, 2020 Content Version: 12.4 [employer]. Care instructions adapted under license by your healthcare professional. If you have questions about a medical condition or this instruction, always ask your healthcare professional. [employer] disclaims any warranty or liability for your use of this information. documented in this encounter History of Present Illness * Mellisa Fritz MD - 03/24/2020 9:59 AM EDT Patient Name: [facility] Location: [place] [id number] Date Of : Date Of Visit: 1995 03/24/2020 MRN# Provider: [id number] Mellisa Fritz MD Chief Complaint Patient presents with Cough Cough, vomiting, headache since last night. Works at [employer] with 9 positive covid Assessment & Plan [...] vomiting, headache since last night. Works at [employer] with 9 positive covid ) Past 2 [...] file Gets together: Not on file Attends muslim service: Not on file Active member of [...] water aren't available, use an alcohol-based hand telecommunications cable jointer. Don't share personal household items. These include bedding, towels, cups and glasses, and eating utensils. Clean and disinfect your home every day. Use household lead generation representative or disinfectant wipes or sprays. Take special care to clean things that you grab with your hands. These include doorknobs, remote controls, phones, and handles on your refrigerator and microwave. And don't forget countertops, tabletops, bathrooms, and computer keyboards. Current as of: March 02, 2020 Content Version: 12.4 [employer]. Care instructions adapted under license by your healthcare professional. If you have questions about a medical condition or this instruction, always ask your healthcare professional. [employer] disclaims any warranty or liability for your [...] Date Diagnosed Date [facility] - [facility] 06/01/2023 Education - [place] 06/01/2023 Problem Noted Date Diagnosed Date [facility] - [facility] 06/01/2023 Education - [place] 06/01/2023 Problem Noted Date Diagnosed Date [facility] - [facility] 06/01/2023 Education - [place] 06/01/2023 Problem Noted Date Diagnosed Date [facility] - [facility] 06/01/2023 Education - [place] 06/01/2023 Problem Noted Date Diagnosed Date [facility] - [facility] 06/01/2023 Education - [place] 06/01/2023 Problem Noted Date Diagnosed Date [facility] - [facility] 06/01/2023 Education - [place] 06/01/2023 Problem Noted Date Diagnosed Date [facility] - [facility] 06/01/2023 Education - [place] 06/01/2023 Problem Noted Date Diagnosed Date [facility] - [facility] 06/01/2023 Education - [place] 06/01/2023 Problem Noted Date Diagnosed Date [facility] - [facility] 06/01/2023 Education - [place] 06/01/2023 Problem Noted Date Diagnosed Date [facility] - [facility] 06/01/2023 Education - [place] 06/01/2023 Additional Source Comments INFORMATION SOURCE (unrecogn ized section and content) DATE CREATED AUTHOR AUTHOR'S ORGANIZ ATION 03/25/2020 [facility] DATE CREATED AUTHOR AUTHOR'S ORGANIZ ATION 03/25/2020 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 Reason Comments Follow Up Reason Onset Date Comments Insurance 05/11/2023 Ubrelvy 50 Reason Comments Care Reason Comments US Specialty Diagnoses / Procedures Referred By Contac t [facility] Diagnoses Bleeding in early Procedures OBSTETRIC ULTRASOUND WHI US PREG UTERUS AFTER 1ST TRIMEST GESTATION Francesco Bowen MD [address] [place] [address] [address] Referral ID Status Reason Start Date Expiration Date V isits Requested Visits Authorized [id number] Closed Auto-Generate d Referral 11/19/2022 11/19/2023 1 1 Reason Comments OB UTI Symptoms Reason Onset Date Comments Care 06/25/2023 Specialty Diagnoses / Procedures Referred By Contac t Referred To Contact [facility] Diagnoses 9 weeks gestation of Procedures NUCHAL TRANSLUCENCY WHI US NUCHAL TRANSLUCENCY 1ST GESTATION Arcelia Macias MD [address] [place] [address] [address] Referral ID Status Reason Start Date Expiration Date V isits Requested Visits Authorized [id number] Closed Auto-Generate d Referral 06/09/2023 11/08/2023 1 1 Specialty Diagnoses / Procedures Referred By Contac t Referred To Contact [facility] Diagnoses 9 weeks gestation of Procedures OBSTETRIC ULTRASOUND WHI US PREG UTERUS AFTER 1ST TRIMEST GESTATION Arcelia Macias MD [address] [place] [address] [address] Referral ID Status Reason Start Date Expiration Date Visits Requested Visits Authorized [id number] Authorized Auto-Generat ed Referral 07/29/2023 11/08/2023 20 20 Reason Onset Date Comments Care 09/17/2023 Reason Onset Date Comments Care 10/12/2023 Reason Onset Date Comments Care 12/17/2023 Reason Onset Date Comments Care Care 12/25/2023 Care Teams (unrecognized sec tion and content) Certified Pesticide Applicator Relationship Specialty Start Date End Date Devendra Chase MD [address] [place] [address] [place] [address] PCP - General Family Medicine 01/24/20 Certified Pesticide Applicator Relationship Specialty Start Date End Date Devendra Chase MD [address] [place] [address] PCP - General Family Medicine 07/06/18 Certified Pesticide Applicator Relationship Specialty Start Date End Date Devendra Chase MD [address] [place] [address] PCP - General Family Medicine 07/06/18 Certified Pesticide Applicator Relationship Specialty Start Date End Date Devendra Chase MD [address] [place] [address] PCP - General Family Medicine 07/06/18 Certified Pesticide Applicator Relationship Specialty Start Date End Date Devendra Chase MD [address] [place] [address] PCP - General Family Medicine 07/06/18 Certified Pesticide Applicator Relationship Specialty Start Date End Date Devendra Chase MD [address] [place] [address] PCP - General Family Medicine 07/06/18 Certified Pesticide Applicator Relationship Specialty Start Date End Date Devendra Chase MD [address] [place] [address] PCP - General Family Medicine 07/06/18 Certified Pesticide Applicator Relationship Specialty Start Date End Date Devendra Chase MD [address] [place] [address] PCP - General Family Medicine 07/06/18 Certified Pesticide Applicator Relationship Specialty Start Date End Date Devendra Chase MD [address] [place] [address] PCP - General Family Medicine 07/06/18 Certified Pesticide Applicator Relationship Specialty Start Date End Date Devendra Chase MD [address] [place] [address] PCP - General Family Medicine 01/24/20 Certified Pesticide Applicator Relationship Specialty Start Date End Date Devendra Chase MD [address] [place] [address] [place] [address] PCP - General Family Medicine 07/06/18 Certified Pesticide Applicator Relationship Specialty Start Date End Date Devendra Chase MD [address] [place] [address] [place] [address] PCP - General Family Medicine 07/06/18 Certified Pesticide Applicator Relationship Specialty Start Date End Date Devendra Chase MD [address] [place] [address] [place] [address] PCP - General Family Medicine 07/06/18 Certified Pesticide Applicator Relationship Specialty Start Date End Date Devendra Chase MD [address] [place] [address] [place] [address] PCP - General Family Medicine 07/06/18 Certified Pesticide Applicator Relationship Specialty Start Date End Date Devendra Chase MD [address] [place] [address] [place] [address] PCP - General Family Medicine 07/06/18 Certified Pesticide Applicator Relationship Specialty Start Date End Date Devendra Chase MD [address] [place] [address] [place] [address] PCP - General Family Medicine 07/06/18 Certified Pesticide Applicator Relationship Specialty Start Date End Date Devendra Chase MD [address] [place] [address] [place] [address] PCP - General Family Medicine 07/06/18 Certified Pesticide Applicator Relationship Specialty Start Date End Date Devendra Chase MD [address] [place] [address] PCP - General Family Medicine 07/06/18 Certified Pesticide Applicator Relationship Specialty Start Date End Date Devendra Chase MD [address] [place] [address] PCP - General Family Medicine 07/06/18 Certified Pesticide Applicator Relationship Specialty Start Date End Date Devendra Chase MD [address] [place] [address] PCP - General Family Medicine 07/06/18 Certified Pesticide Applicator Relationship Specialty Start Date End Date Devendra Chase MD [address] [place] [address] PCP - General Family Medicine 07/06/18 Certified Pesticide Applicator Relationship Specialty Start Date End Date Devendra Chase MD [address] [place] [address] PCP - General Family Medicine 07/06/18 Source Comments (unrecognize d section and content) In the event this informatio n is protected by the [facility] Confidentiality of Alcohol and Drug Abuse Patient [...] BE BASED ON THE PRIMARY CLINICAL RECORDS. [facility] [employer]. provides no warranty or guarantee of the accuracy or completeness of information in this document.
--- NOTE | 2023-12-28 19:37 | HP.PCM.OB_ITS ---
HPI - General General Date of Admission: 12/28/23 Date of Service: 12/28/23 Chief Complaint: IOL HPI Narrative KARLA CAMPUZANO, is a 28 F who presents for induction of labor. Patient came into the office for follow up after L&D triage visit last night. Reports gush of fluid around 9 pm with continued leaking of fluid. In triage ROM was negative. She was discharged home. She is anxious about possible rupture. She states she continues to feel wet and like she is leaking. No regular ctx's. Some cramping. No vb. DFM. PFSH PFSH Medical History (Updated 12/28/23 @ 19:[address] Maureen Macias, DO) Anemia Migraines Home Medications ferrous sulfate 325 mg (65 mg iron) tablet (FeroSul) 325 mg PO DAILY anemia 12/10 07/02 [History Last Taken 12/27/23] magnesium 200 mg tablet 200 mg PO DAILY restless legs 12/27/23 [History Last Taken 12/26/23] omeprazole 10 mg capsule,delayed release 10 mg PO DAILY PRN acid reflux 12/27/23 [History Last Taken 12/27/23] Allergy/AdvReac Type Severity Reaction Status Date / Time No Known Allergies Allergy Verified 12/27/23 22:57 Surgical History History of appendectomy History of wisdom tooth extraction Social History (Updated 02/24/22 @ 11:17 by Silke Austin) Smoking Status: Never smoker alcohol intake: current details: social substance use type: does not use caffeine: Yes seatbelt use: always do you feel safe at home: Yes additional social history: [employer] History 1 Elective abortions 0 Hx Para 1 Spontaneous abortions 0 Hx # Term Pregnancies 1 Ectopic pregnancies 0 Hx # Pregnancies 0 Multiple births 0 # of living children 1 Past Pregnancies Del. Date Name GA/Weeks Outcome Route Bth Weight Gen Labor Lgth Anesthesia Del Locatn Provider FOB Unknown 2020 Bucky III (Wirt) 39 live - full term vacuum 8lbs 1oz Male epidural [facility] Delivery Date: Last Updated by: Silke Austin 2nd degree perineal tear, vacuum 2nd attempt successful NST FHR Rate Baby A Baseline: 120 Variability:: Moderate Accelerations:: 15 x 15 Decelerations:: None NST Reactive:: Yes FHR Category:: Category I Uterine Activity:: no regular ctx's Vital Signs Vital Signs Vital Signs: 12/28/23 15:37 12/28/23 15:37 12/28/23 16:15 Temperature Temperature Source Temporal Pulse Rate 98 Blood Pressure 137/74 H BP Systolic 137 BP Diastolic 74 Pulse Ox 12/28/23 16:15 12/28/23 16:56 12/28/23 16:56 Temperature 99.1 F Temperature Source Pulse Rate 92 Blood Pressure 139/76 H BP Systolic 139 BP Diastolic 76 Pulse Ox 12/28/23 18:27 12/28/23 18:27 12/28/23 18:32 Temperature Temperature Source Pulse Rate 93 Blood Pressure 90/47 L 116/55 L BP Systolic 90 116 BP Diastolic 47 55 Pulse Ox 12/28/23 18:32 12/28/23 19:14 12/28/23 19:14 Temperature Temperature Source Pulse Rate 91 88 Blood Pressure 120/81 H BP Systolic 120 BP Diastolic 81 Pulse Ox 12/28/23 19:14 Temperature Temperature Source Pulse Rate Blood Pressure BP Systolic BP Diastolic Pulse Ox 99 Weight Weight: 188 lb 6 oz Body Mass Index (BMI) 27.0 Labs Labs Labs: Blood Type O POSITIVE Antibody Screen NEGATIVE Hct 41.7 % (37-47) Hgb 13.6 g/dL (12.0-15.0) Pap Smear Negative Syphilis Total Ab Non-reactive Rhogam given: No Assessment & Plan (1) Vaginal discharge: PLAN: Bedside US in office with subjectively low fluid. One pocket of fluid noted with MVP 4 cm. Negative pooling, nitrazine and fern. Discussed with patient concern given subjectively low fluid, and continued leaking of fluid per patient, but no evidence of rupture. Discussed r/b/a to induction of labor and she desires an induction as soon as possible. (2) 39 weeks gestation of : PLAN: Admit for induction of labor. Pitocin per protocol. GBS negative. Epidural for pain control. EFW < 4500 g and pelvis adequate. Anticipate vaginal delivery.
[2023-12-28] MEDS: LACTATED RINGERS 500 ML 999 ML IV (21:43)
[2023-12-28] MEDS: fentaNYL-bupivacaine (epidural) 100 ML BAG EPIDURAL (22:20)
--- NOTE | 2023-12-28 22:20 | PCM.PN.BLA ---
Progress Note At bedside to check on pt. Just received epidural. Assessment & Plan Assessment/Plan (1) Vaginal discharge: (2) 39 weeks gestation of : PLAN: Comfortable with epidural. Cvx 2.5/60/-2, head well applied. AROM performed for small amount of clear fluid. IUPC placed. Category 1 tracing. Cont current management. (3) Elective induction of labor planned:
[2023-12-28] MEDS: Ondansetron 4 MG/2 ML Vial IV (23:21)
[2023-12-28] MEDS: 0.9% Saline Lock 10 ML Syringe IV (23:21)
[2023-12-29] VITALS (57 sets, daily range): BP systolic 96–137; BP diastolic 51–82; PULSE 71–116; RESP 16–18; TEMP 36.4–36.8; O2SAT 81–99
--- NOTE | 2023-12-29 01:27 | PCM.OPRPT ---
Problems Associated Problem List Diagnoses (1) Vaginal delivery: (2) Second degree perineal laceration: Report of Operation Date of Procedure: 12/29/23 Pre-Operative Diagnosis: 39 week gestation, single IUP, elective IOL Post-Operative Diagnosis: As above Surgery/Procedure Performed:: Repair of second degree perineal laceration Description of Surgical Findings:: VFI in SUNDAY position. Normal appearing placenta with 3 VC. Surgeon: Maureen Macias transmission assembler: None Type of Anesthesia: Epidural Special Medications: None Specimen's removed: Placenta Drains: None Estimated Blood Loss (mL): 300 Fluids Replaced: N/A Description of Procedure: Cvx 10/100/+2. Patient was set up for delivery. Patient began pushing and variable decelerations were noted with pushing. Great maternal effort and good descent was noted, and delivery was felt to be imminent. After pushing with 5 contractions the head of the infant delivered in SUNDAY position. The anterior shoulder was delivered with gentle downward traction, followed by the posterior shoulder and body of the without any excessive traction, force, or delay. A vigorous VFI was placed on maternal abdomen. The cord was clamped and cut after a 60 second delay. Cord blood was obtained. A gush of blood was noted and the placenta was delivering. Pitocin was initiated, and cord gases unable to be obtained. Placenta delivered spontaneously and was noted to be normal appearing, intact, with a 3 VC. Nursing staff obtained venous cord gases. The uterus was explored x 1. A second degree perineal laceration was repaired with 3-0 Vicryl in usual fashion. Fundus firm and bleeding hemostatic. A vaginal sweep was performed. Sponge and sharp counts were correct. Grafts/Implants Used: None Complications None Admit VTE Documentation VTE Present on Admission: No
[2023-12-29] MEDS: Oxytocin 15 Units/NS 250ml 15 UNITS/250 ML IV.SOLN 83 UNITS IV (01:35)
[2023-12-29] MEDS: Ibuprofen 600 MG Tablet PO ×2 (12:15→21:43)
[2023-12-29] MEDS: Acetaminophen 500 MG Tablet 1000 MG PO (16:12)
[2023-12-30] VITALS (8 sets, daily range): BP systolic 104–132; BP diastolic 55–73; PULSE 68–86; RESP 16; TEMP 36.2–36.6; O2SAT 94–98
[2023-12-30] MEDS: Acetaminophen 500 MG Tablet 1000 MG PO ×2 (05:14→13:24)
--- NOTE | 2023-12-30 08:24 | PCM.DC.SUM ---
Providers Date of Admission: 12/28/23 Primary Care Physician: Dr. Devendra Chase MD Reason For Visit: VAGINAL DELIVERY Diagnosis Discharge Diagnosis (1) Vaginal delivery: Status: Acute Code(s): O80 - Encounter for full-term uncomplicated delivery (2) Second degree perineal laceration: Status: Acute Code(s): O70.1 - Second degree perineal laceration during delivery Medications at Discharge Home Medications ferrous sulfate 325 mg (65 mg iron) tablet (FeroSul) 325 mg PO DAILY anemia 12/27/23 magnesium 200 mg tablet 200 mg PO DAILY restless legs 12/27/23 omeprazole 10 mg capsule,delayed release 10 mg PO DAILY PRN acid reflux 12/27/23 vit 168-iron 27 mg-folic acid 800 mcg-omega3 235 mg capsule (One-A-Day -1) cap PO 12/28/23 Hospital Course Operations None Procedures None Summary of Care Provided Minutes Spent on Discharge: 10 Hospital Course: Patient had . Hospital course was uneventful. Physical Exam Const alert and no apparent distress General Appearance: cooperative and comfortable Exam Limitations: no limitations HEENT normocephalic Eyes General Eye: normal appearance of both eyes Neck full ROM General: normal visual inspection Chest Chest: symmetrical chest wall rise Resp normal respiratory effort and normal air movement Effort and Inspection: symmetric chest movement Auscultation: clear to auscultation bilaterally Cardio regular rate and regular rhythm GI normal to inspection, nondistended, normoactive bowel sounds Back/Spine normal ROM Extremity full ROM and no calf tenderness General Extremity: normal exam except as noted Skin no rashes or lesions noted Neuro CN's II-XII intact bilaterally Psych mental status grossly normal Weight / BMI Weight Weight: 188 lb 6 oz Body Mass Index (BMI) 27.0 ABG / Lab / Microbiology Data 12/28/23 15:30 D/C Instructions Discharge Diet: No restrictions May resume sexual activity in: 6-8 weeks Weight Bearing Status: Weight bearing as tolerated Call your doctor if you observe: Fever of 101 or Higher, Inability to urinate, Using more than 1 pad per hour, Shortness of breath, Chest pain, Calf discomfort and Uncontrolled pain Please Follow Up With: Ofe Sahni CNM When: 2 weeks virtual visit/ 6 weeks in office Meaningful Use Info Meaningful Use Diagnoses (Choose all that apply): None applicable Discharge Plan Admission Admit Date/Time: 12/28/23 15:20 Primary Reason for Your Visit: Labor and Delivery Attending Provider: Maureen Macias Primary Care Provider: Devendra Chase Discharge Orders/Prescriptions Prescriptions: Continued One-A-Day -1 27 mg iron- 800 mcg-235 mg capsule PO ferrous sulfate [FeroSul] 325 mg (65 mg iron) tablet 325 mg PO DAILY Patient Comments: TAKE 1 TABLET BY MOUTH ONCE DAILY WITH A MEAL magnesium 200 mg tablet 200 mg PO DAILY No Action omeprazole 10 mg capsule,delayed release(DR/EC) 10 mg PO DAILY PRN (Reason: acid reflux) Referrals / Follow Up: Devendra Chase MD [Primary Care Provider] - Disposition Disposition (needs filled in before D/C Order can be placed): Home, Self Care
[2023-12-30] MEDS: Ibuprofen 600 MG Tablet PO (09:06)
== END 2023-12-30 13:45 | disposition home or self-care (01) | DRG 807 ==
PROVIDERS: Admitting Provider Obstetrics & Gynecology; PCP Family Medicine; Visit Provider Obstetrics & Gynecology
DX: O75.9 Complication of labor and delivery, unspecified (principal); Z37.0 Single live birth; O99.02 Anemia complicating childbirth; O70.1 Second degree perineal laceration during delivery; O76 Abnormality in fetal heart rate and rhythm complicating labor and delivery; Z3A.39 39 weeks gestation of pregnancy
CPT/HCPCS: 59025; 59050; 84112; 85025; 86780; 86850; 86900; 86901; 99221; J7120; A4216; G0378; J2405